=== PATIENT | female | born 1935 | race Caucasian/White ===

== ENCOUNTER 2017-05-01 17:10 | Outpatient (CLI) | payer MEDICARE, OTHER ==
[2017-05-01 20:11] LABS: BASOPHILS # (AUTO) 0.1 10^3/uL (0.0-0.1); BASOPHILS % (AUTO) 0.8 %; EOSINOPHILS # (AUTO) 0.4 10^3/uL (0.0-0.7); EOSINOPHILS % (AUTO) 5.7 %; HGB - HEMOGLOBIN 13.2 g/dL (12.0-16.0); LYMPHOCYTES # (AUTO) 1.2 10^3/uL (1.5-3.5); LYMPHOCYTES % (AUTO) 18.1 %; MEAN CORPUSCULAR HEMOGLOBIN 29.8 pg (27.0-31.0); MEAN CORPUSCULAR HGB CONC 31.6 g/dL (32.0-36.0); MEAN CORPUSCULAR VOLUME 94.3 fL (81.0-99.0); MEAN PLATELET VOLUME 9.1 fL (7.9-10.8); MONOCYTES # (AUTO) 0.9 10^3/uL (0.0-1.0); MONOCYTES % (AUTO) 13.4 %; NEUTROPHILS # (AUTO) 4.1 10^3/uL (1.5-6.6); PLT - PLATELET COUNT 253 10^3/uL (130-450); RED BLOOD COUNT 4.43 10^6/uL (4.20-5.40); RED CELL DISTRIBUTION WIDTH 16.4 % (12.0-15.0); WHITE BLOOD COUNT 6.6 x10^3/uL (4.8-10.8)
[2017-05-01 20:19] LABS: CALCIUM 9.3 mg/dL (8.5-10.3); CREATININE 0.8 mg/dL (0.4-1.0)
== END 2017-05-01 17:11 | disposition home or self-care (01) ==
LOC: LAB.R 17:10
DX: E78.5 Hyperlipidemia, unspecified (principal); D64.9 Anemia, unspecified
CPT/HCPCS: 80048; 85025

== ENCOUNTER 2017-06-08 11:05 | Outpatient (CLI) | payer MEDICARE, OTHER | END 2017-06-08 11:06 | disposition home or self-care (01) | LOC: LAB.F 11:05 | PROVIDERS: ATTEND Family Medicine | DX: I48.91 Unspecified atrial fibrillation (principal) | CPT/HCPCS: 85610 ==

== ENCOUNTER 2017-09-02 03:54 | Outpatient (CLI) | payer MEDICARE, OTHER ==
[2017-09-02] MEDS ORDERED: DILTIAZEM 50 MG/10 ML VIAL IVP ONE (06:14)
[2017-09-02] MEDS ORDERED: ACETAMINOPHEN 325 MG TABLET PO PRN (06:21)
[2017-09-02] MEDS ORDERED: SODIUM CHLORIDE FLUSH 0.9% 10 ML SYRINGE IVP PRN (06:21)
[2017-09-02] MEDS ORDERED: PANTOPRAZOLE 40 MG TABLET PO SCH (09:00)
[2017-09-02] MEDS ORDERED: SODIUM CHLORIDE FLUSH 0.9% 10 ML SYRINGE IVP SCH (09:00)
[2017-09-02] MEDS ORDERED: POLYETHYLENE GLYCOL 3350 17 GM PACKET PO SCH (09:00)
== END 2017-09-02 03:55 | disposition critical access hospital (66) ==
LOC: EMS 03:54
PROVIDERS: ATTEND Surgery
DX: R06.02 Shortness of breath (principal); R05 Cough
CPT/HCPCS: A0425; A0427

== ENCOUNTER 2017-09-02 04:19 | Inpatient (IN) | payer MEDICARE, OTHER ==
[2017-09-02] MEDS ORDERED: SODIUM CHLORIDE 0.9% 1,000 ML IV ONE (04:31)
--- NOTE | 2017-09-02 04:56 | XRAY Report ---
EXAM: CHEST RADIOGRAPHY EXAM DATE: 09/02/2017 04:50 AM. CLINICAL HISTORY: Cough, hypoxia. COMPARISON: 03/08/2006. TECHNIQUE: 1 view. FINDINGS: Lungs/Pleura: Pulmonary vascular congestion. No alveolar consolidation. No definite pleural effusion. No pneumothorax. Mediastinum: Rotated. Mild cardiomegaly. Other: Osteopenia. IMPRESSION: 1. Rotated exam with mild cardiomegaly and pulmonary vascular congestion. [facility] Referring Provider Line: [phone] SITE ID: [id number]
[2017-09-02 05:09] LABS: BASOPHILS % (AUTO) 0.2 %; EOSINOPHILS # (AUTO) 0.1 10^3/uL (0.0-0.7); EOSINOPHILS % (AUTO) 1.2 %; HGB - HEMOGLOBIN 13.8 g/dL (12.0-16.0); LYMPHOCYTES # (AUTO) 1.1 10^3/uL (1.5-3.5); LYMPHOCYTES % (AUTO) 17.3 %; MEAN CORPUSCULAR HGB CONC 31.6 g/dL (32.0-36.0); MEAN CORPUSCULAR VOLUME 94.8 fL (81.0-99.0); MEAN PLATELET VOLUME 8.4 fL (7.9-10.8); MONOCYTES # (AUTO) 0.7 10^3/uL (0.0-1.0); MONOCYTES % (AUTO) 10.6 %; NEUTROPHILS # (AUTO) 4.5 10^3/uL (1.5-6.6); NEUTROPHILS % (AUTO) 70.7 %; PLT - PLATELET COUNT 158 10^3/uL (130-450); RED CELL DISTRIBUTION WIDTH 15.4 % (12.0-15.0); WHITE BLOOD COUNT 6.3 x10^3/uL (4.8-10.8)
[2017-09-02] MEDS ORDERED: FUROSEMIDE 40 MG/4 ML VIAL IVP STA (05:13)
[2017-09-02 05:16] LABS: INR 1.6 (0.8-1.2)
[2017-09-02 05:21] LABS: ALBUMIN 3.7 g/dL (3.2-5.5); BILIRUBIN,TOTAL 1.1 mg/dL (0.2-1.0); CALCIUM 8.7 mg/dL (8.5-10.3); CREATININE 0.5 mg/dL (0.4-1.0); TOTAL PROTEIN 7.3 g/dL (6.7-8.2)
--- NOTE | 2017-09-02 05:23 | ED Physician Documentation ---
PD HPI DYSPNEA - Stated complaint Stated Complaint: SOA - Chief complaint Chief Complaint: Resp - History obtained from History obtained from: EMS - History of Present Illness Timing - onset: Today Timing - onset during: Rest Timing - details: Gradual onset, Still present Improved by: O2 Associated symptoms: Cough Similar symptoms before: Work up / diagnostics, Treatment Recently seen: Not recently seen - Additional information Additional information: Patient is an 82 year old female, fpc patient was a history of afib and dementia who is presenting to the emergency department for worsening cough and shortness of breath. Patient was having trouble breathing so staff called ems. When ems arrived patient was saturating around 87. they treated the patient with a duoneb and 6L of oxygenation which improved the 02 status. Review of Systems Unable to obtain: Dementia PD PAST MEDICAL HISTORY - Past Medical History Cardiovascular: Hypertension, High cholesterol, Coronary artery disease, Atrial fibrillation Neuro: CVA : Incontinence HEENT: Chronic hearing loss Psych: None Musculoskeletal: Hemiplegia Derm: None - Past Surgical History Past Surgical History: No Cardiovascular: Coronary stent - Present Medications Home Medications: Ambulatory Orders Medication Instructions Recorded Confirmed Alendronate [Fosamax] 70 mg PO Q7D 06/23/14 02/20/17 Aspirin [Aspir 81] 81 mg PO DAILY 06/23/14 02/20/17 Lisinopril 40 mg PO BID 06/23/14 02/20/17 Potassium Chloride 10 meq PO BIDWM 06/23/14 02/20/17 Simvastatin 40 mg PO QPM 06/23/14 02/20/17 Warfarin [Coumadin] 5 mg PO MOWEFR@209906/23/14 02/20/17 amLODIPine [Norvasc] 5 mg PO QPM 06/23/14 02/20/17 Calcium Carbonate/Vitamin D3 1 tab PO DAILY 02/20/17 02/20/17 [Calcium 600-Vit D3 400 Tablet] Multivitamin [Theragran] 1 tab PO DAILY 02/20/17 02/20/17 Warfarin [Coumadin] 2.5 mg PO SUTUTHSA@209902/20/17 02/20/17 Aspirin 325 mg PO DAILY #7 tablet 02/24/17 HYDROcod/ACETAM 5/325 [[place] 5/325] 1 each PO Q6H PRN #12 tablet 02/24/17 diltiaZEM [Cardizem] 30 mg PO Q6H #30 tablet 02/24/17 - Allergies Allergies/Adverse Reactions: Allergies Allergy/AdvReac Type Severity Reaction Status Date / Time No Known Drug Allergies Allergy Verified 02/20/17 10:58 - Social History Does the pt smoke?: No Smoking Status: Never smoker Does the pt drink ETOH?: No Does the pt have substance abuse?: No - Immunizations Immunizations are current?: Yes - POLST Patient has POLST: Yes POLST Status: Full Code PD ED PE NORMAL - Vitals Vital signs reviewed: Yes - Neck Neck: No JVD - Abdomen Abdomen: Soft - Derm Derm: Normal color - Extremities Extremities: No edema - Neuro Eye Opening: Spontaneous Motor: Obeys Commands Verbal: Confused GCS Score: 14 PD ED PE EXPANDED - HEENT HEENT: Dry mucous membranes - Cardiac Cardiac: Irregularly irregular - Respiratory Respiratory: Labored, Rhonchi, Rales, Right upper lobe, Right middle lobe, Right lower lobe, Left upper lobe, Left lower lobe Results - Vitals Vitals: Vital Signs - 24 hr 09/02/17 09/02/17 04:27 05:17 Temperature 37.2 C Heart Rate 113 H 116 H Respiratory 22 28 H Rate Blood Pressure 138/102 H 142/98 H O2 Saturation 87 L 96 Oxygen O2 Source [] Room air O2 Source Nasal cannula Oxygen Flow Rate 4 - EKG (time done) 0433 Rate: Rate (enter#) (105) Rhythm: Atrial fibrillation [place]: Normal Intervals: Normal [place] Compare to prior EKG: Old EKG unavailable - Labs Labs: Laboratory Tests 09/02/17 09/02/17 09/02/17 05:00 05:00 05:00 WBC 6.3 RBC 4.60 Hgb 13.8 Hct 43.6 MCV 94.8 MCH 30.0 MCHC 31.6 L RDW 15.4 H Plt Count 158 MPV 8.4 Neut # 4.5 Lymph # 1.1 L Mcpherson # 0.7 Eos # 0.1 Baso # 0.0 Absolute Nucleated RBC 0.00 Nucleated RBC % 0.1 PT 18.0 H INR 1.6 H Sodium 135 Potassium 4.0 Chloride 102 Carbon Dioxide 23 Anion Gap 10.0 BUN 16 Creatinine 0.5 Estimated GFR (MDRD) 119 Glucose 123 H Lactic Acid Calcium 8.7 Total Bilirubin 1.1 H AST 26 ALT 21 Alkaline Phosphatase 82 Troponin I B-Natriuretic Peptide Total Protein 7.3 Albumin 3.7 Globulin 3.6 Albumin/Globulin Ratio 1.0 Lipase 20 L Urine Color Urine Clarity Urine pH Ur Specific [place] Urine Protein Urine Glucose (UA) Urine Ketones Urine Occult Blood Urine Nitrite Urine Bilirubin Urine Urobilinogen Ur Leukocyte Esterase Ur Microscopic Review Urine Culture Comments 09/02/17 09/02/17 09/02/17 05:00 05:00 05:00 WBC RBC Hgb Hct MCV MCH MCHC RDW Plt Count MPV Neut # Lymph # [place] # Eos # Baso # Absolute Nucleated RBC Nucleated RBC % PT INR Sodium Potassium Chloride Carbon Dioxide Anion Gap BUN Creatinine Estimated GFR (MDRD) Glucose Lactic Acid 1.3 Calcium Total Bilirubin AST ALT Alkaline Phosphatase Troponin I < 0.04 B-Natriuretic Peptide 515 H Total Protein Albumin Globulin Albumin/Globulin Ratio Lipase Urine Color Urine Clarity Urine pH Ur Specific [place] Urine Protein Urine Glucose (UA) Urine Ketones Urine Occult Blood Urine Nitrite Urine Bilirubin Urine Urobilinogen Ur Leukocyte Esterase Ur Microscopic Review Urine Culture Comments 09/02/17 05:40 WBC RBC Hgb Hct MCV MCH MCHC RDW Plt Count MPV Neut # Lymph # [place] # Eos # Baso # Absolute Nucleated RBC Nucleated RBC % PT INR Sodium Potassium Chloride Carbon Dioxide Anion Gap BUN Creatinine Estimated GFR (MDRD) Glucose Lactic Acid Calcium Total Bilirubin AST ALT Alkaline Phosphatase Troponin I B-Natriuretic Peptide Total Protein Albumin Globulin Albumin/Globulin Ratio Lipase Urine Color YELLOW Urine Clarity CLEAR Urine pH 5.5 Ur Specific [place] 1.025 Urine Protein TRACE Urine Glucose (UA) NEGATIVE Urine Ketones 40 H Urine Occult Blood TRACE-INTA Urine Nitrite POSITIVE H Urine Bilirubin NEGATIVE Urine Urobilinogen 0.2 (NORMAL) Ur Leukocyte Esterase NEGATIVE Ur Microscopic Review INDICATED Urine Culture Comments Not Reportable - Rads (name of study) chest x-ray Radiology: Final report received (rotated, with pulmonary vascular congestion) PD MEDICAL DECISION MAKING - ED course Complexity details: reviewed old records, reviewed results, re-evaluated patient , considered differential, d/w audit consultant ED course: Patient was seen and examined at bedside. IV access was gained and labs were drawn. ekg was performed and showed a fib. Patient had course breath sounds, was hypoxic and felt warm to touch. patient was started on a fluid bolus, and imaging was ordered. When patient returned from imaging she was found to have pulmonary edema but no infiltrated. Fluids were held and lasix was given. Case was discussed with the hospitalist and patient was admitted for further evaluation and care. Departure - Departure Disposition: 66 [facility] DC/Xfer Clinical Impression: Congestive heart failure Condition: Stable
[2017-09-02 05:49] LABS: BILIRUBIN,URINE NEGATIVE (NEGATIVE); GLUCOSE, URINE (UA) NEGATIVE (NEGATIVE); KETONES,URINE (UA) 40 mg/dL (NEGATIVE); LEUKOCYTE ESTERASE, URINE NEGATIVE (NEGATIVE); NITRITE,URINE POSITIVE (NEGATIVE); OCCULT BLOOD,URINE TRACE-INTA (NEGATIVE); PH,URINE 5.5 PH (5.0-7.5); PROTEIN,URINE TRACE mg/dL (NEGATIVE); UROBILINOGEN,URINE 0.2 (NORMAL) E.U./dL (NORMAL)
[2017-09-02 05:52] LABS: CLARITY,URINE CLEAR (CLEAR)
[2017-09-02 06:03] LABS: BACTERIA,URINE Many /HPF (None Seen); RBC,URINE 0-5 /HPF (0-5); SQUAMOUS EPITHELIAL CELL,UR RARE Squamous (<= Few)
[2017-09-02] MEDS ORDERED: diltiaZEM INJ 5 MG/ML VIAL IVP STA (06:44)
[2017-09-02] MEDS ORDERED: cefTRIAXone 1 GM VIAL IVP STA (06:45)
[2017-09-02] MEDS ORDERED: SODIUM CHLORIDE FLUSH 0.9% 10 ML SYRINGE IVP PRN (07:07)
[2017-09-02] MEDS ORDERED: ONDANSETRON 4 MG/2 ML VIAL IVP PRN (07:07)
[2017-09-02] MEDS ORDERED: diltiaZEM INJ 125 MG in DEXTROSE 5% 100 ML IV SCH ×2 (09:00→11:00)
[2017-09-02] MEDS ORDERED: WARFARIN 5 MG TABLET PO SCH (09:00)
[2017-09-02] MEDS: cefTRIAXone 1 GM in SODIUM CHLORIDE 0.9% MINIBAG 100 ML IV SCH (09:23)
[2017-09-02] MEDS: SODIUM CHLORIDE FLUSH 0.9% 10 ML SYRINGE IVP SCH ×2 (09:30→16:59)
[2017-09-02] MEDS: POLYETHYLENE GLYCOL 3350 17 GM PACKET PO SCH (11:13)
[2017-09-02] MEDS: PANTOPRAZOLE 40 MG TABLET PO SCH (11:13)
--- NOTE | 2017-09-02 16:02 | HISTORY & PHYSICAL EXAMINATION ---
DATE OF SERVICE: 09/02/2017 Physician: Rosi Arteaga MD CHIEF COMPLAINT: Shortness of breath and cough. HISTORY OF PRESENT ILLNESS: Patient is an 82-year-old white female with past medical history of atrial fibrillation, on Coumadin anticoagulation, and with history of cerebrovascular accident with residual aphasia and right-sided weakness, who was brought in from [facility] with 2 days' history of shortness of breath and cough. When I admitted patient, she had a wet cough. Other than shortness of breath and cough , she did not have a complaint. In particular, she denied abdominal pain, chest pain, nausea, vomiting, diarrhea. From the facility report, patient was short of breath and had low oxygen saturation in the 80s on room air. She does not have history of oxygen dependence. Upon presentation to the ER, patient showed septic physiology, had elevated temperature 37.2, and her heart rate was between 110 and 120. EKG showed atrial fibrillation with rapid ventricular rate. At the time I examined patient, her heart rate was between 120 and 130. INR was 1.6. White blood cell count was normal. Chest x-ray showed pulmonary vascular congestion. No discrete infiltrate. BNP was 515. Troponin was negative. Urinalysis showed nitrite and some white blood cells. CODE STATUS: Regarding code status, I was told that patient's code status is DO NOT RESUSCITATE. I confirmed that with her. She told me she did not want aggressive intervention, but she wanted reasonable medical treatment, shy of intubation and cardiopulmonary resuscitation. Her POLST form from the facility is not yet available. PAST MEDICAL HISTORY 1. Hypertension. 2. Dyslipidemia. 3. Atrial fibrillation/Coumadin anticoagulation. 4. Osteoarthritis/osteoporosis. 5. 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 Back in 2007, the patient did receive TPA and was treated for stroke at [facility]. 6. History of hip fracture, status post ORIF in January 2017. 7. Coronary artery disease, status post myocardial infarction, history of stent placement in 2005. 8. Echocardiogram in 2014 showed normal ejection fraction. 9. Melanoma back in 2008. PRIMARY CARE PHYSICIAN: Dr. Ru Carr. FAMILY HISTORY: Positive for cerebrovascular accident. SOCIAL HISTORY: The patient resides at [facility]. She has expressive aphasia, but she can communicate and let her needs be known. She requires assistance with transfers. OUTPATIENT MEDICATIONS: Medication list is not yet available or reconciled. Per prior records, the patient was on 1. Cardizem. 2. Norvasc. 3. Coumadin. 4. Simvastatin. 5. Potassium supplements. 6. Multivitamin. 7. Lisinopril. 8. [place]. 9. Calcium. 10. Vitamin D. 11. Aspirin. 12. Fosamax. REVIEW OF SYSTEMS: Please see pertinent positive listed above at history of present illness. On complete 12-point review, the patient did not report additional complaint. PHYSICAL EXAMINATION VITAL SIGNS: Temperature is 37.2, heart rate between 120 and 130, blood pressure 130/80, respiratory rate 28, oxygen saturation 87% on room air and 96% on nasal cannula. GENERAL: The patient is a well-developed, chronically ill-appearing female who had wet cough and appeared with increased work of breathing RESPIRATORY: No wheezes, no crackling. Reasonably good air entry throughout. CARDIOVASCULAR: S1, S2, irregularly irregular, fast rate. I could not hear a murmur. ABDOMEN: Soft, benign, nontender. Bowel tones present. LYMPH: No lymphedema. NEUROLOGIC: Right-sided hemiparesis and dysarthria and aphasia. No new focal deficits. PSYCHIATRIC: Cooperative. No agitation. SKIN: Mild pallor. No jaundice. MUSCULOSKELETAL: Right upper extremity contracture. ASSESSMENT AND PLAN ACTIVE ISSUES/DIAGNOSES 1. Sepsis, rules in for the diagnosis per vital sign criteria, including oxygen saturation of 87%, heart rate around 120, elevated temperature above 37 Celsius. Source could be respiratory versus urine. Urinalysis was positive. 2. Hypoxia/respiratory failure requiring supplemental oxygen. 3. Infectious issues, urinary tract infection plus bronchitis. 4. Congestive heart failure, likely diastolic dysfunction from sepsis and fast atrial fibrillation. 5. History of stroke with residual deficits. 6. Coumadin anticoagulation with subtherapeutic INR. 7. Atrial fibrillation with rapid ventricular rate in the setting of sepsis. PLAN AND ORDERS 1. The patient is getting admitted as inpatient. In the ER, the patient initially received some fluids. As the initial impression was possible pneumonia, subsequently she received Lasix. She had not yet received rate control. I ordered 10 mg IV Cardizem and we will see her response. In the meantime as she might require Cardizem drip, I am admitting her to the intensive care unit and further plan regarding rate control will depend on her response to the initial Cardizem bolus. Lasix was already given. We will monitor the clinical course. If needed, more Lasix will be given. 2. Ceftriaxone will be started for bronchitis and urinary tract infection pending cultures. 3. Supportive care for bronchitis, will use small volume nebulizers. 4. Assess swallow function. Speech therapy evaluation. With history of stroke , patient would have aspiration risk. 5. Continue Coumadin per INR. I expect INR to rise as patient is on antibiotics. 6. Will check an echocardiogram and repeat troponin. 7. I requested POLST form to be faxed from the facility; however, the patient was alert and oriented and confirmed that she is DO NOT RESUSCITATE CODE STATUS. 8. Physical therapy, occupational therapy evaluation and social work consult. After treatment when hemodynamically stable, patient can go back to [facility]. ATTESTATION: I certify that the reasonable expectation for this patient is that she remains hospitalized for at least 48 hrs, however gets discharged or transferred to another facility within 96 hrs. Time spent in the care of this patient was 60 minutes. TD: 09/02/2017 16:01 SHERRY
[2017-09-02] MEDS: ASPIRIN EC 81 MG TABLET PO SCH (20:46)
[2017-09-02] MEDS: diltiaZEM 30 MG TABLET PO SCH (20:46)
[2017-09-02] MEDS: WARFARIN 5 MG TABLET PO SCH (20:50)
[2017-09-03] MEDS: SODIUM CHLORIDE FLUSH 0.9% 10 ML SYRINGE IVP SCH ×3 (01:07→18:41)
[2017-09-03] MEDS: diltiaZEM 30 MG TABLET PO SCH ×4 (03:04→20:12)
[2017-09-03 06:48] LABS: BASOPHILS % (AUTO) 0.4 %; EOSINOPHILS # (AUTO) 0.2 10^3/uL (0.0-0.7); HGB - HEMOGLOBIN 13.5 g/dL (12.0-16.0); LYMPHOCYTES # (AUTO) 1.1 10^3/uL (1.5-3.5); LYMPHOCYTES % (AUTO) 23.4 %; MEAN CORPUSCULAR VOLUME 93.8 fL (81.0-99.0); MEAN PLATELET VOLUME 8.2 fL (7.9-10.8); MONOCYTES # (AUTO) 0.7 10^3/uL (0.0-1.0); NEUTROPHILS # (AUTO) 2.6 10^3/uL (1.5-6.6); NEUTROPHILS % (AUTO) 55.2 %; PLT - PLATELET COUNT 179 10^3/uL (130-450); RED BLOOD COUNT 4.49 10^6/uL (4.20-5.40); RED CELL DISTRIBUTION WIDTH 14.9 % (12.0-15.0); WHITE BLOOD COUNT 4.7 x10^3/uL (4.8-10.8)
[2017-09-03 06:56] LABS: CALCIUM 8.3 mg/dL (8.5-10.3); CREATININE 0.5 mg/dL (0.4-1.0)
[2017-09-03 07:47] LABS: INR 2.1 (0.8-1.2); PT - PROTHROMBIN TIME 23.3 secs (9.9-12.6)
[2017-09-03] MEDS: POLYETHYLENE GLYCOL 3350 17 GM PACKET PO SCH (08:52)
[2017-09-03] MEDS: cefTRIAXone 1 GM in SODIUM CHLORIDE 0.9% MINIBAG 100 ML IV SCH (08:53)
[2017-09-03] MEDS: PANTOPRAZOLE 40 MG TABLET PO SCH (08:55)
[2017-09-03] MEDS: FLUoxetine 10 MG CAPSULE PO SCH (08:56)
[2017-09-03] MEDS: ATORVASTATIN 10 MG TABLET PO SCH (08:57)
[2017-09-03] MEDS: CHOLECALCIFEROL 400 UNIT TABLET PO SCH (08:57)
[2017-09-03] MEDS ORDERED: CALCIUM CARBONATE CHEW 500 MG TABLET PO SCH (09:00)
[2017-09-03] MEDS: CALCIUM CARBONATE CHEW 500 MG TABLET PO SCH (09:58)
[2017-09-03] MEDS ORDERED: POTASSIUM CHLORIDE 20 MEQ TABLET PO ONE (10:23)
[2017-09-03] MEDS: D5NS W/20 MEQ KCL 1,000 ML IV SCH (12:09)
[2017-09-03] MEDS ORDERED: SODIUM CHLORIDE FLUSH 0.9% 10 ML SYRINGE ONE ×2 (12:23→20:49)
--- NOTE | 2017-09-03 13:15 | PROVIDER PROGRESS NOTE ---
Assessment/Plan - Problem List (1) Sepsis Assessment/Plan: Improving BP. Resolving sepsis. Monitor CBC and treat underlying infection. (2) UTI (urinary tract infection) Assessment/Plan: Continue iv antibiotics. (3) Hypokalemia Assessment/Plan: Likely due to Lasix diuresis whn she was admitted. Replace and monitor labs. (4) CVA - cerebrovascular accident due to cerebral artery occlusion Assessment/Plan: Stable neuro status. (5) Atrial fibrillation Qualifiers: Atrial fibrillation type: chronic Qualified Code(s): I48.2 - Chronic atrial fibrillation Assessment/Plan: HR is slightly more controlled. Will plan more gentle rehydration, which should help control HR. Continue telemetry monitoring. - Current Meds Current Meds: Current Medications Generic Name Dose Route Start Last Admin Trade Name Foreignq PRN Reason Stop Dose Admin Aspirin 81 mg 09/02/17 21:00 09/02/17 20:46 Ecotrin PO 81 mg QPM FLO Administration Atorvastatin Calcium 20 mg 09/03/17 09:00 09/03/17 08:57 Lipitor PO 20 mg DAILY FLO Administration Calcium Carbonate/Glycine 500 mg 09/03/17 09:06 09/03/17 09:58 Tums PO 500 mg DAILY FLO Administration Cholecalciferol 400 unit 09/03/17 09:00 09/03/17 08:57 Vitamin D3 PO 400 unit DAILY FLO Administration Diltiazem HCl 30 mg 09/02/17 21:00 09/03/17 08:57 Cardizem PO 30 mg Q6H FLO Administration Fluoxetine HCl 20 mg 09/03/17 09:00 09/03/17 08:56 Prozac PO 20 mg DAILY FLO Administration Ceftriaxone Sodium 1 gm/ 100 mls @ 200 mls/hr 09/02/17 09:00 09/03/17 09:33 Sodium Chloride IV Infused DAILY FLO Infusion Potassium Chloride/Dextrose/Sod Cl 1,000 mls @ 125 mls/hr 09/03/17 11:00 12:09 IV 125 mls/hr .Q8H FLO Administration Pantoprazole Sodium 40 mg 09/02/17 09:00 09/03/17 08:55 Protonix PO 40 mg DAILY FLO Administration Polyethylene Glycol 17 gm 09/02/17 09:00 09/03/17 08:52 Miralax PO 17 gm DAILY FLO Administration Sodium Chloride 10 ml 09/02/17 09:00 09/03/17 08:58 Normal Saline Flush 0.9% IVP 20 ml 0100,0900,1700 [facility] Administration Warfarin Sodium 2.5 mg 09/02/17 21:00 09/02/17 20:50 Coumadin PO 2.5 mg SUTUTHSA@2100 [facility] Administration - Lab Result Fish Bone Diagrams: 09/03/17 06:24 09/03/17 06:24 - Additional Planning My Orders: My Active Orders 09/02/17 21:00 Aspirin EC [Ecotrin] 81 mg PO QPM Warfarin [Coumadin] 2.5 mg PO SUTUTHSA@2100 09/03/17 09:00 Atorvastatin [Lipitor] 20 mg PO DAILY FLUoxetine [PROzac] 20 mg PO DAILY 09/03/17 11:00 D5ns W/20 Meq KCl 1,000 ml IV 125 mls/hr 09/04/17 21:00 Warfarin [Coumadin] 5 mg PO MOWEFR@2100 Subjective - Subjective Patient Reports: Feeling Better, Resting Comfortably Nursing Reports: No Complaints Objective Vital Signs: Vital Signs - 24 hr 09/02/17 09/02/17 09/02/17 14:00 15:00 16:00 Temperature 36.8 C Heart Rate [ 95 98 86 Monitoring electrodes] Respiratory 14 26 H 26 H Rate Blood Pressure Blood Pressure 116/71 125/77 92/55 L [Left Brachial artery] O2 Saturation 95 94 92 09/02/17 09/02/17 09/02/17 17:00 18:00 18:15 Temperature Heart Rate [ 96 103 H 110 H Monitoring electrodes] Respiratory 17 22 26 H Rate Blood Pressure Blood Pressure 104/75 98/65 95/59 L [Left Brachial artery] O2 Saturation 93 96 96 09/02/17 09/02/17 09/02/17 18:30 19:00 19:30 Temperature 36.7 C Heart Rate [ 110 H 96 Monitoring electrodes] Respiratory 26 H 29 H Rate Blood Pressure Blood Pressure 91/63 105/71 [Left Brachial artery] O2 Saturation 95 96 09/02/17 09/02/17 09/02/17 20:00 20:46 21:00 Temperature Heart Rate [ 96 99 Monitoring electrodes] Respiratory 23 21 Rate Blood Pressure 119/77 Blood Pressure 100/66 124/77 [Left Brachial artery] O2 Saturation 96 97 09/02/17 09/02/1709/03/18 22:00 23:00 00:00 Temperature 37.1 C 36.9 C Heart Rate [ 99 95 95 Monitoring electrodes] Respiratory 22 20 20 Rate Blood Pressure Blood Pressure 114/62 108/69 126/78 [Left Brachial artery] O2 Saturation 94 94 96 09/03/17 09/03/17 09/03/17 01:00 02:00 03:00 Temperature Heart Rate [ 97 107 H 115 H Monitoring electrodes] Respiratory 23 21 30 H Rate Blood Pressure Blood Pressure 140/86 H 141/83 H 130/89 H [Left Brachial artery] O2 Saturation 95 95 100 09/03/17 09/03/17 09/03/17 03:04 04:00 05:00 Temperature Heart Rate [ 114 H 105 H Monitoring electrodes] Respiratory 21 19 Rate Blood Pressure 130/89 H Blood Pressure 97/69 135/92 H [Left Brachial artery] O2 Saturation 96 95 09/03/17 09/03/17 09/03/17 06:00 07:00 08:57 Temperature Heart Rate [ 96 96 Monitoring electrodes] Respiratory 20 21 Rate Blood Pressure 96/71 Blood Pressure 131/84 H 119/78 [Left Brachial artery] O2 Saturation 98 97 09/03/17 09/03/17 09:00 11:45 Temperature 36.8 C Heart Rate [ 112 H 100 Monitoring electrodes] Respiratory 18 20 Rate Blood Pressure Blood Pressure 99/65 92/58 L [Left Brachial artery] O2 Saturation 100 94 Oxygen O2 Source [With Activity] Room air O2 Source Room air I&O (Last 24 Hrs): Intake and Output Totals x24h 09/01/17 09/02/17 09/03/17 23:59 23:59 23:59 Intake Total 850.583 670 Output Total 2585 282 Balance -1734.417 388 General: Alert HEENT: Mucous membr. moist/pink Neck: Supple Neuro: Other (Apasia and R sided weakness) Cardiovascular: Regular rate, No murmurs Respiratory: No respiratory distress, Breath sounds nml Abdomen: Soft Extremities: No edema - Results Results: Laboratory Results WBC 4.7 x10^3/uL (4.8-10.8) L 09/03/17 06:24 RBC 4.49 10^6/uL (4.20-5.40) 09/03/17 06:24 Hgb 13.5 g/dL (12.0-16.0) 09/03/17 06:24 Hct 42.1 % (37.0-47.0) 09/03/17 06:24 MCV 93.8 fL (81.0-99.0) 09/03/17 06:24 MCH 30.0 pg (27.0-31.0) 09/03/17 06:24 MCHC 32.0 g/dL (32.0-36.0) 09/03/17 06:24 RDW 14.9 % (12.0-15.0) 09/03/17 06:24 Plt Count 179 10^3/uL (130-450) 09/03/17 06:24 MPV 8.2 fL (7.9-10.8) 09/03/17 06:24 Neut # 2.6 10^3/uL (1.5-6.6) 09/03/17 06:24 Lymph # 1.1 10^3/uL (1.5-3.5) L 09/03/17 06:24 [place] # 0.7 10^3/uL (0.0-1.0) 09/03/17 06:24 Eos # 0.2 10^3/uL (0.0-0.7) 09/03/17 06:24 Baso # 0.0 10^3/uL (0.0-0.1) 09/03/17 06:24 Absolute Nucleated RBC 0.01 x10^3/uL 09/03/17 06:24 Nucleated RBC % 0.1 /100WBC 09/03/17 06:24 PT 23.3 secs (9.9-12.6) H 09/03/17 06:24 INR 2.1 (0.8-1.2) H 09/03/17 06:24 Sodium 136 mmol/L (135-145) 09/03/17 06:24 Potassium 3.3 mmol/L (3.5-5.0) L 09/03/17 06:24 Chloride 99 mmol/L (101-111) L 09/03/17 06:24 Carbon Dioxide 30 mmol/L (21-32) 09/03/17 06:24 Anion Gap 7.0 (6-13) 09/03/17 06:24 BUN 11 mg/dL (6-20) 09/03/17 06:24 Creatinine 0.5 mg/dL (0.4-1.0) 09/03/17 06:24 Estimated GFR (MDRD) 119 (>89) 09/03/17 06:24 Glucose 104 mg/dL (70-100) H 09/03/17 06:24 Lactic Acid 1.3 mmol/L (0.5-2.2) 09/02/17 05:00 Calcium 8.3 mg/dL (8.5-10.3) L 09/03/17 06:24 Total Bilirubin 1.1 mg/dL (0.2-1.0) H 09/02/17 05:00 AST 26 IU/L (10-42) 09/02/17 05:00 ALT 21 IU/L (10-60) 09/02/17 05:00 Alkaline Phosphatase 82 IU/L (42-121) 09/02/17 05:00 Troponin I < 0.04 ng/mL (<0.49) 09/02/17 09:00 B-Natriuretic Peptide 515 pg/mL (5-100) H 09/02/17 05:00 Total Protein 7.3 g/dL (6.7-8.2) 09/02/17 05:00 Albumin 3.7 g/dL (3.2-5.5) 09/02/17 05:00 Globulin 3.6 g/dL (2.1-4.2) 09/02/17 05:00 Albumin/Globulin Ratio 1.0 (1.0-2.2) 09/02/17 05:00 Lipase 20 U/L (22-51) L 09/02/17 05:00 Urine Color YELLOW 09/02/17 05:40 Urine Clarity CLEAR (CLEAR) 09/02/17 05:40 Urine pH 5.5 PH (5.0-7.5) 09/02/17 05:40 Ur Specific [place] 1.025 (1.002-1.030) 09/02/17 05:40 Urine Protein TRACE mg/dL (NEGATIVE) 09/02/17 05:40 Urine Glucose (UA) NEGATIVE mg/dL (NEGATIVE) 09/02/17 05:40 Urine Ketones 40 mg/dL (NEGATIVE) H 09/02/17 05:40 Urine Occult Blood TRACE-INTA (NEGATIVE) 09/02/17 05:40 Urine Nitrite POSITIVE (NEGATIVE) H 09/02/17 05:40 Urine Bilirubin NEGATIVE (NEGATIVE) 09/02/17 05:40 Urine Urobilinogen 0.2 (NORMAL) E.U./dL (NORMAL) 09/02/17 05:40 Ur Leukocyte Esterase NEGATIVE (NEGATIVE) 09/02/17 05:40 Urine RBC 0-5 /HPF (0-5) 09/02/17 05:40 Urine WBC 6-10 /HPF (0-5) H 09/02/17 05:40 Ur Squamous Epith Cells RARE Squamous (<= Few) 09/02/17 05:40 Urine Bacteria Many /HPF (None Seen) H 09/02/17 05:40 Ur Microscopic Review INDICATED 09/02/17 05:40 Urine Culture Comments INDICATED 09/02/17 05:40 - Procedures Procedures: Procedures REPOSITION R UP FEMUR WITH INTRAMED FIX, OPEN APPROACH (02/20/17)
[2017-09-03] MEDS ORDERED: SODIUM CHLORIDE 0.9% 500 ML IV ONE (16:12)
[2017-09-03] MEDS ORDERED: ZOLPIDEM 5 MG TABLET PO PRN (19:33)
[2017-09-03] MEDS: ASPIRIN EC 81 MG TABLET PO SCH (20:12)
[2017-09-03] MEDS: WARFARIN 5 MG TABLET PO SCH (20:14)
[2017-09-04] MEDS: D5NS W/20 MEQ KCL 1,000 ML IV SCH ×2 (01:39→01:40)
[2017-09-04] MEDS: SODIUM CHLORIDE FLUSH 0.9% 10 ML SYRINGE IVP SCH ×2 (01:39→07:41)
[2017-09-04] MEDS: diltiaZEM 30 MG TABLET PO SCH ×2 (04:07→08:29)
[2017-09-04] MEDS ORDERED: POTASSIUM CHLORIDE 20 MEQ TABLET PO ONE (08:00)
[2017-09-04] MEDS: FLUoxetine 10 MG CAPSULE PO SCH (08:29)
[2017-09-04] MEDS: ATORVASTATIN 10 MG TABLET PO SCH (08:29)
[2017-09-04] MEDS: CALCIUM CARBONATE CHEW 500 MG TABLET PO SCH (08:29)
[2017-09-04] MEDS: CHOLECALCIFEROL 400 UNIT TABLET PO SCH (08:29)
[2017-09-04] MEDS: cefTRIAXone 1 GM in SODIUM CHLORIDE 0.9% MINIBAG 100 ML IV SCH (08:30)
[2017-09-04] MEDS: PANTOPRAZOLE 40 MG TABLET PO SCH (08:31)
[2017-09-04] MEDS: POLYETHYLENE GLYCOL 3350 17 GM PACKET PO SCH (08:31)
[2017-09-04 09:38] LABS: EOSINOPHILS # (AUTO) 0.2 10^3/uL (0.0-0.7); MEAN CORPUSCULAR HEMOGLOBIN 30.9 pg (27.0-31.0); MEAN PLATELET VOLUME 8.1 fL (7.9-10.8)
[2017-09-04 10:29] LABS: BASOPHILS % (AUTO) 0.5 %; HGB - HEMOGLOBIN 13.3 g/dL (12.0-16.0); LYMPHOCYTES % (AUTO) 18.8 %; MEAN CORPUSCULAR HGB CONC 33.2 g/dL (32.0-36.0); MEAN CORPUSCULAR VOLUME 93.1 fL (81.0-99.0); MONOCYTES # (AUTO) 0.8 10^3/uL (0.0-1.0); NEUTROPHILS # (AUTO) 3.1 10^3/uL (1.5-6.6); NEUTROPHILS % (AUTO) 61.7 %; PLT - PLATELET COUNT 179 10^3/uL (130-450); RED CELL DISTRIBUTION WIDTH 14.6 % (12.0-15.0)
[2017-09-04 10:41] LABS: CALCIUM 8.2 mg/dL (8.5-10.3); CREATININE 0.5 mg/dL (0.4-1.0); MAGNESIUM 1.7 mg/dL (1.7-2.8)
[2017-09-04 10:42] LABS: INR 2.5 (0.8-1.2)
--- NOTE | 2017-09-04 12:10 | Discharge Plan ---
"Discharge Plan for SNF / ROSELINE - DC Plan and Transition Orders Disposition: 03 SNF DC/Xfer Condition: Stable SNF Transition Orders: Admit to: [facility] under the care of Dr Ru Carr Discharge Diagnosis: 1) UTI 2) History of stroke with weakness, aphasia and contractures 3) Atrial fib, on Coumadin 4) History of CAD and old OR 5) Osteoarthritis 6) Code Status: DNR Notify PCP of admission and forward orders to primary provider for signature. Weight on admission and weekly. Call PCP immediately if weight increases by 5 pounds or if patient develops dyspnea, chest pain/tightness or edema. House Bowel Program: Yes If no BM after 2 days, nurse may give M.O.M. 30ml PO PRN and /or ducolax Supp 1 CO and /or UNA 250mg P.O., and/or senna 1-2 tabs PO. On day 3 nurse may give repeat above order until residents constipation is resolved. Immunizations: Annual Influenza Vaccine: Yes. (between Dec 23 and July 22.) Unless allergy or already given Two-Step PPD: Yes per [facility] [id number] or appropriate documentation of approved exceptions Treatments & Other Orders: OT and PT to evaluate and manage contractures of R arm, R hand and R leg Oxygen Orders: None Lab Tests or X-Rays Orders: INR monthly, next on Mon09/06/17 please Orthopedic Orders: None. Medications: PLEASE REFER TO THE DISCHARGE MEDICATION LIST. Insulin Orders? No Allergies and Adverse Reactions: Allergies Allergy/AdvReac Type Severity Reaction Status Date / Time No Known Drug Allergies Allergy Verified 02/20/17 10:58 - Medications New Prescriptions: Amox/Clav 875/125 [Augmentin 875/125] 1 tab PO BIDWM #8 tablet Saccharomyces Boulardii [Florastor] 250 mg PO BID #8 capsule - Diet Type: Geriatric Texture: Puree Liquids: Thin May have monthly special meal: Yes - Therapies | Activity Therapy: Evaluation | Treat if indicated: PT (For contracture management), OT Rehabilitation Potential: Maintain present ADL Functional Activity: Activity as Tolerated Additional Instructions: Resume all previous medications. Take the antibiotic and Florastor for 4 days more."
[2017-09-04 13:15] VITALS: BP 122/72
[2017-09-04] MEDS ORDERED: AMOX/CLAV 875 MG/125 MG TABLET PO SCH (17:00)
[2017-09-04] MEDS ORDERED: WARFARIN 2.5 MG TABLET PO SCH (21:00)
--- NOTE | 2017-09-05 08:26 | DISCHARGE SUMMARY ---
Physician: Marce Bull MD DATE OF ADMISSION: 09/02/2017 DATE OF DISCHARGE: 09/04/2017 HISTORY OF PRESENT ILLNESS: This is an 82-year-old white female who lives in an assisted living facility. 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 The patient presented with history of a wet cough, shortness of breath for 2 days, and found to have 80% oxygen saturation on room air. She appeared to have sepsis with tachycardia, tachypnea. The source of her fever was felt to be a urinary tract infection and/or bronchitis. HOSPITAL COURSE AND DISCHARGE DIAGNOSES 1. Urinary tract infection. Blood cultures were negative, but urine cultures grew E coli. She was placed initially on empiric IV antibiotics and then changed to antibiotics based on sensitivities of the cultures. She had no dysuria during her admission here. She was discharged back to the assisted living facility with an additional 4 more days of p.o. antibiotics. 2. Sepsis. The patient required IV fluids, which helped improve her tachycardia. The underlying infection was treated as above. 3. History of stroke with unilateral weakness, aphasia and contractures. The patient is normally bedbound according to OT and PT evaluations. It was advised that she have either OT or PT contracture management upon return back to her living situation. 4. Atrial fibrillation on Coumadin. The patient's tachycardia resolved with management of the infection. The patient is on a therapeutic dose of Coumadin. This antibiotic tends to increase the INR; therefore, an INR check is advised on 09/06/2017, with management as previously arranged. 5. History of coronary artery disease and old NM. The patient's last Echo was in 2014 showing a preserved LV ejection fraction. She had no evidence of ischemic heart disease on this admission. 6. Osteoarthritis. Stable. 7. CODE STATUS: DNR. ALLERGIES: NONE. MEDICATIONS AT TIME OF DISCHARGE 1. Fosamax 70 mg weekly. 2. Amlodipine 5 mg every evening. 3. Baby aspirin daily. 4. Lipitor 20 mg daily. 5. Calcium carbonate daily. 6. Diltiazem 30 mg every 6 hours. 7. Fluoxetine 20 mg daily. 8. Lisinopril 40 mg b.i.d. 9. Theragran vitamin daily. 10. Potassium chloride 10 mEq b.i.d. 11. Warfarin 2.5 alternating with 5 mg daily. 12. Augmentin 875/125 mg b.i.d. for 4 days along with Florastor tablets b.i.d. for 4 days. CONDITION AT DISCHARGE: Stable. PHYSICAL EXAMINATION AT DISCHARGE VITAL SIGNS: Blood pressure 122/72, pulse of 95, afebrile. Room air saturation 94%. HEENT: Unremarkable, except for her aphasia. Her oral mucosa is moist. NECK: No JVD. No carotid bruits. CHEST: Clear. HEART: Sounds normal. No murmur. ABDOMEN: The abdomen is soft, nontender, positive bowel sounds. EXTREMITIES: No edema, but she has contractures of the right hand and of the right knee. NEUROLOGIC: Aphasic. Right-sided weakness and hand contractures, but the patient is able to support herself, sitting upright in bed and able to feed herself. CODE STATUS: DNR. LABORATORY AND IMAGING: Reviewed and summarized above. TIME REQUIRED TO COMPLETE THIS ENTIRE DISCHARGE: 60 minutes. TD: 09/04/2017 17:14 SHERRY
== END 2017-09-04 13:57 | DRG 871 ==
LOC: EDUNIT# → ED 04:19 → SUPCPDRO 04:19 → ICU 07:07 → MS2 09-03 14:25
PROVIDERS: ADMIT Internal Medicine; ATTEND Internal Medicine
DX: A41.9 Sepsis, unspecified organism (principal); I50.9 Heart failure, unspecified; E78.00 Pure hypercholesterolemia, unspecified; I50.31 Acute diastolic (congestive) heart failure; I48.91 Unspecified atrial fibrillation; I69.359 Hemiplegia and hemiparesis following cerebral infarction affecting unspecified side; H91.90 Unspecified hearing loss, unspecified ear; R32 Unspecified urinary incontinence; N39.0 Urinary tract infection, site not specified; I69.351 Hemiplegia and hemiparesis following cerebral infarction affecting right dominant side; B96.20 Unspecified Escherichia coli [E. coli] as the cause of diseases classified elsewhere; M19.90 Unspecified osteoarthritis, unspecified site; I25.2 Old myocardial infarction; Z85.820 Personal history of malignant melanoma of skin; Z74.01 Bed confinement status; I69.320 Aphasia following cerebral infarction; I25.10 Atherosclerotic heart disease of native coronary artery without angina pectoris; Z79.01 Long term (current) use of anticoagulants; Z66 Do not resuscitate; E78.5 Hyperlipidemia, unspecified; Z79.82 Long term (current) use of aspirin; R09.02 Hypoxemia; J40 Bronchitis, not specified as acute or chronic; I11.0 Hypertensive heart disease with heart failure; E87.6 Hypokalemia; I48.2 Chronic atrial fibrillation; Z95.5 Presence of coronary angioplasty implant and graft
CPT/HCPCS: 36415; 51702; 71045; 80048; 80053; 81001; 81003; 83605; 83690; 83735; 83880; 84484; 85025; 85610; 87040; 87086; 87150; 93005; 93306; 96361; 96374; 96375; 99284

== ENCOUNTER 2017-09-04 13:59 | Outpatient (CLI) | payer MEDICARE, OTHER | END 2017-09-04 14:00 | disposition home or self-care (01) | LOC: EMS 13:59 | PROVIDERS: ATTEND Surgery | DX: N39.0 Urinary tract infection, site not specified (principal); Z74.01 Bed confinement status | CPT/HCPCS: A0425; A0428 ==

== ENCOUNTER 2017-09-07 14:33 | Outpatient (CLI) | payer MEDICARE, OTHER | END 2017-09-07 14:34 | disposition home or self-care (01) | LOC: LAB.F 14:33 | PROVIDERS: ATTEND Family Medicine | DX: I48.91 Unspecified atrial fibrillation (principal) | CPT/HCPCS: 85610 ==

== ENCOUNTER 2017-10-06 15:00 | Outpatient (CLI) | payer MEDICARE, OTHER | END 2017-10-06 15:01 | disposition home or self-care (01) | LOC: LAB.F 15:00 | PROVIDERS: ATTEND Family Medicine | DX: I48.91 Unspecified atrial fibrillation (principal) | CPT/HCPCS: 85610 ==

== ENCOUNTER 2017-10-12 08:00 | Outpatient (CLI) | payer MEDICARE, OTHER | END 2017-10-12 08:01 | LOC: LAB.F 08:00 | PROVIDERS: ATTEND Family Medicine | DX: I48.91 Unspecified atrial fibrillation (principal) | CPT/HCPCS: 85610 ==

== ENCOUNTER 2017-10-19 15:42 | Outpatient (CLI) | payer MEDICARE, OTHER | END 2017-10-19 15:43 | disposition home or self-care (01) | LOC: LAB.F 15:42 | PROVIDERS: ATTEND Family Medicine | DX: I48.91 Unspecified atrial fibrillation (principal) | CPT/HCPCS: 85610 ==

== ENCOUNTER 2017-11-16 10:50 | Outpatient (CLI) | payer MEDICARE, OTHER | END 2017-11-16 10:51 | disposition home or self-care (01) | LOC: LAB.F 10:50 | PROVIDERS: ATTEND Family Medicine | DX: I48.91 Unspecified atrial fibrillation (principal) | CPT/HCPCS: 85610 ==

== ENCOUNTER 2017-12-21 13:53 | Outpatient (CLI) | payer MEDICARE, OTHER | END 2017-12-21 13:54 | disposition home or self-care (01) | LOC: LAB.F 13:53 | PROVIDERS: ATTEND Family Medicine | DX: I48.91 Unspecified atrial fibrillation (principal) | CPT/HCPCS: 85610 ==

== ENCOUNTER 2018-02-02 14:20 | Emergency (ER) | payer MEDICARE, OTHER ==
[2018-02-02 14:29] VITALS: BP 113/65
--- NOTE | 2018-02-02 16:46 | ED Physician Documentation ---
PD HPI TRUNK INJURY - Stated complaint Stated Complaint: GLF/RIB PX LT - Chief complaint Chief Complaint: General - History obtained from History obtained from: Patient - History of Present Illness Location: Left chest Type of injury: Fall Timing - onset: How many days ago (6) Timing - duration: Days (6) Timing - details: Abrupt onset (fell and struck left ribs 6 days ago. Still hurts with palpation and ROM. Here for evaluation.) Quality: Pain, Aching Improved by: Rest Worsened by: Moving, Palpating Associated symtptoms: No: Weakness, Numbness Contributing factors: No: Anticoagulated Where injury occured: Home Similar symptoms before: Has not had sx before Recently seen: Not recently seen Review of Systems Constitutional: denies: Fever, Chills Nose: denies: Rhinorrhea / runny nose, Congestion Throat: denies: Sore throat Cardiac: reports: Chest pain / pressure. denies: Palpitations, Pedal edema, Calf pain Respiratory: denies: Dyspnea, Cough, Wheezing GI: denies: Abdominal Pain, Nausea, Vomiting Skin: denies: Abrasion (s), Laceration (s) Neurologic: denies: Focal weakness, Numbness PD PAST MEDICAL HISTORY - Past Medical History Past Medical History: Yes Cardiovascular: Hypertension, High cholesterol, Coronary artery disease, Atrial fibrillation Neuro: CVA : Incontinence HEENT: Chronic hearing loss Psych: None Musculoskeletal: Hemiplegia Derm: None - Past Surgical History Past Surgical History: No Ortho: Other Cardiovascular: Coronary stent - Present Medications Home Medications: Ambulatory Orders Medication Instructions Recorded Confirmed Alendronate [Fosamax] 70 mg PO Q7D 06/23/14 09/02/17 Aspirin [Aspir 81] 81 mg PO DAILY 06/23/14 09/02/17 Lisinopril 40 mg PO BID 06/23/14 09/02/17 Potassium Chloride 10 meq PO BIDWM 06/23/14 09/02/17 Warfarin [Coumadin] 5 mg PO MOWEFR@2100 06/23/14 09/02/17 amLODIPine [Norvasc] 5 mg PO QPM 06/23/14 09/02/17 Calcium Carbonate/Vitamin D3 1 tab PO DAILY 02/20/17 09/02/17 [Calcium 600-Vit D3 400 Tablet] Multivitamin [Theragran] 1 tab PO DAILY 02/20/17 09/02/17 Warfarin [Coumadin] 2.5 mg PO SUTUTHSA@2100 02/20/17 09/02/17 diltiaZEM [Cardizem] 30 mg PO Q6H #30 tablet 02/24/17 09/02/17 Atorvastatin Calcium 20 mg PO DAILY 09/02/17 09/02/17 Fluoxetine HCl 20 mg PO DAILY 09/02/17 09/02/17 Amox/Clav 875/125 [Augmentin 1 tab PO BIDWM #8 tablet 09/04/17 875/125] Saccharomyces Boulardii [Florastor] 250 mg PO BID #8 capsule 09/04/17 - Allergies Allergies/Adverse Reactions: Allergies Allergy/AdvReac Type Severity Reaction Status Date / Time No Known Drug Allergies Allergy Verified 02/02/18 14:29 - Social History Does the pt smoke?: No Smoking Status: Never smoker Does the pt drink ETOH?: No Does the pt have substance abuse?: No - Immunizations Immunizations are current?: Yes - POLST Patient has POLST: Yes POLST Status: Full Code PD ED PE NORMAL - Vitals Vital signs reviewed: Yes - General General: Alert and oriented X 3, No acute distress, Well developed/nourished - Neck Neck: Supple, no meningeal sign, No bony TTP, No adenopathy - Cardiac Cardiac: RRR, No murmur - Respiratory Respiratory: Other (tenderness left lateral chestwall without bruising nor crepitance. ) - Abdomen Abdomen: Soft, Non tender Results - Vitals Vitals: Vital Signs - 24 hr 02/02/18 14:26 Temperature 35.3 C L Heart Rate 93 Respiratory 16 Rate Blood Pressure 113/65 O2 Saturation 96 Oxygen O2 Source [With Activity] Room air O2 Source Room air - Rads (name of study) ribs with chest Radiology: Prelim report reviewed (lungs are okay. There is subtle defect at 8th rib, c/w nondisplaced rib fracture. ), EMP read contemporaneously PD MEDICAL DECISION MAKING - ED course Complexity details: reviewed results, considered differential (has rib defect in area of her pain, c/w nondisplaced rib fracture. ), d/w patient Departure - Departure Disposition: 01 Home, Self Care Clinical Impression: Accidental fall Qualifiers: Encounter type: initial encounter Qualified Code(s): W19.XXXA - Unspecified fall, initial encounter Rib fracture Qualifiers: Encounter type: initial encounter Rib fracture type: single rib Fracture type: closed Laterality: left Qualified Code(s): S22.32XA - Fracture of one rib, left side, initial encounter for closed fracture Condition: Stable Record reviewed to determine appropriate education?: Yes Instructions: ED Fx Rib Follow-Up: Ru Carr MD [Primary Care Provider] - Comments: Tylenol 500-650 mg 4 times a day for pains. The rib fracture is nondisplaced and should heal okay over time. However will take several weeks to heal up. Activity as feel able. If you get assistance with lifts and transfer, have them not hold you by the ribs but rather the under the arms or waist belt instead so it does not hit on the sore spot. Discharge Date/Time: 02/02/18 18:22
--- NOTE | 2018-02-02 17:55 | XRAY Report ---
Reason: fell few days ago; pain left chest Procedure Date: 02/02/2018 Accession Number: [id number] / [id number] Procedure: XR - Ribs w/PA Chest LT CPT Code: FULL RESULT: EXAM: LEFT RIB RADIOGRAPHY EXAM DATE: 02/02/2018 05:32 PM. CLINICAL HISTORY: Fell few days ago; pain left chest. COMPARISON: CHEST 1 VIEW 09/02/2017 4:41 AM. TECHNIQUE: 1 view of the chest and 2 views of the ribs. FINDINGS: Bones: Left lateral eighth rib mild indentation of the outer cortex, could represent a nondisplaced eighth rib fracture. This is near the area of pain. Otherwise, no acute fractures are seen. Demineralized bones. Lungs: Minimal bibasilar probable atelectasis. No pleural effusion or pneumothorax. Mediastinum: Cardiomegaly. IMPRESSION: Left lateral eighth rib mild indentation of the outer cortex, could represent a nondisplaced eighth rib fracture. This is near the area of pain. Otherwise, no acute fractures are seen. Demineralized bones. Cardiomegaly. RADIA
== END 2018-02-02 18:22 | disposition home or self-care (01) ==
LOC: ED 14:20
DX: S22.32XA Fracture of one rib, left side, initial encounter for closed fracture (principal); W18.30XA Fall on same level, unspecified, initial encounter; W22.09XA Striking against other stationary object, initial encounter; I10 Essential (primary) hypertension; I25.10 Atherosclerotic heart disease of native coronary artery without angina pectoris; G81.90 Hemiplegia, unspecified affecting unspecified side; I48.91 Unspecified atrial fibrillation; Z79.01 Long term (current) use of anticoagulants; Z79.82 Long term (current) use of aspirin; Z86.73 Personal history of transient ischemic attack (TIA), and cerebral infarction without residual deficits; Z95.5 Presence of coronary angioplasty implant and graft
CPT/HCPCS: 99283

== ENCOUNTER 2018-11-06 07:33 | Outpatient (CLI) | payer MEDICARE, OTHER | END 2018-11-06 07:34 | disposition critical access hospital (66) | LOC: EMS 07:33 | PROVIDERS: ATTEND Surgery | DX: R07.81 Pleurodynia (principal); M79.602 Pain in left arm; R50.9 Fever, unspecified | CPT/HCPCS: A0425; A0427 ==

== ENCOUNTER 2018-11-06 07:59 | Inpatient (IN) | payer MEDICARE, OTHER ==
[2018-11-06] MEDS ORDERED: SODIUM CHLORIDE 0.9% 1,000 ML IV ONE (08:10)
--- NOTE | 2018-11-06 08:13 | ED Physician Documentation ---
PD HPI CHEST PAIN - Stated complaint Stated Complaint: RIB PX - History obtained from History obtained from: Patient, EMS - History of Present Illness Timing - onset: Today Timing - onset during: Rest Timing - details: Still present Quality: Pain Location: Right chest Worsened by: Inspiration, Movement, Palpation Similar symptoms before: Has not had sx before - Additional information Additional information: The patient is an 83-year-old female with history of CVA with right-sided neurologic deficit, who arrives via ambulance from [facility] with complaint of right-sided chest pain. The pain started this morning, with no known injury. The patient states that there was no pain yesterday. The pain is worse with movement, palpation, or deep inspiration. She reports cough and fever. She denies shortness of breath. She denies history of similar symptoms in the past. Review of Systems Constitutional: reports: Fever Nose: denies: Congestion Throat: denies: Sore throat Cardiac: reports: Chest pain / pressure (Right-sided.) Respiratory: reports: Cough. denies: Dyspnea GI: denies: Nausea, Vomiting : denies: Dysuria Skin: denies: Rash Musculoskeletal: reports: Extremity swelling. denies: Extremity pain Neurologic: reports: Focal weakness (Right hemiplegia.). denies: Headache PD PAST MEDICAL HISTORY - Past Medical History Cardiovascular: Hypertension, High cholesterol, Coronary artery disease, Atrial fibrillation Neuro: CVA : Incontinence HEENT: Chronic hearing loss Psych: None Musculoskeletal: Hemiplegia Derm: None - Past Surgical History Past Surgical History: No Ortho: Other Cardiovascular: Coronary stent - Present Medications Home Medications: Ambulatory Orders Medication Instructions Recorded Confirmed Aspirin [Aspir 81] 81 mg PO DAILY 06/23/14 09/02/17 Lisinopril 40 mg PO DAILY 06/23/14 11/06/18 Potassium Chloride 10 meq PO DAILYWM 06/23/14 11/06/18 Calcium Carbonate/Vitamin D3 1 tab PO DAILY 02/20/17 09/02/17 [Calcium 600-Vit D3 400 Tablet] Multivitamin [Theragran] 1 tab PO DAILY 02/20/17 09/02/17 Fluoxetine HCl 20 mg PO DAILY 09/02/17 11/06/18 Metoprolol Succinate 25 mg PO DAILY 11/06/18 11/06/18 Rivaroxaban [Xarelto] 20 mg PO QDDINNER 11/06/18 11/06/18 Simvastatin 40 mg PO QPM 11/06/18 11/06/18 amLODIPine [Norvasc] 5 mg PO QPM 11/06/18 11/06/18 - Allergies Allergies/Adverse Reactions: Allergies Allergy/AdvReac Type Severity Reaction Status Date / Time No Known Drug Allergies Allergy Verified 02/02/18 14:29 - Social History Does the pt smoke?: No Smoking Status: Never smoker Does the pt drink ETOH?: No Does the pt have substance abuse?: No - Immunizations Immunizations are current?: Yes - POLST Patient has POLST: Yes POLST Status: Full Code PD ED PE NORMAL - Vitals Vital signs reviewed: Yes (Borderline hypertension initially.) - HEENT HEENT: Atraumatic, PERRL, EOMI, Pharynx benign - Neck Neck: Supple, no meningeal sign, No adenopathy, No JVD - Cardiac Cardiac: RRR - Respiratory Respiratory: No respiratory distress, Clear bilaterally, Other (Tenderness to palpation of the right lower chest wall.) - Abdomen Abdomen: Soft, Other (Mild tenderness to palpation in right upper quadrant, without rebound or guarding.) - Back Back: No CVA TTP, No spinal TTP - Derm Derm: No rash - Extremities Extremities: No calf tenderness / cord, Other (2+ pedal edema bilaterally.) - Neuro Neuro: Alert and oriented X 3, Other (Right-sided hemiplegia. Expressive a aphasia, but responds appropriately to yes and no type questions.) Results - Vitals Vitals: Vital Signs - 24 hr 11/06/18 11/06/18 08:04 11:01 Temperature 37 C Heart Rate 98 103 H Respiratory 20 17 Rate Blood Pressure 133/92 H 119/76 O2 Saturation 2 L 95 Oxygen O2 Source [With Activity] Room air O2 Source Nasal cannula - EKG (time done) 08:12 Rate: Rate (enter#) (104) Rhythm: Atrial fibrillation [place]: Normal QRS: Normal Ischemia: Normal ST segments Compare to prior EKG: Unchanged from prior EKG Computer interpretation: Agree with computer - Labs Labs: Laboratory Tests 11/06/18 11/06/18 11/06/18 08:20 08:20 08:20 WBC 8.2 RBC 4.18 L Hgb 12.2 Hct 39.5 MCV 94.5 MCH 29.2 MCHC 30.9 L RDW 14.5 Plt Count 290 MPV 9.7 Neut # (Auto) 5.5 Lymph # (Auto) 1.3 L [place] # (Auto) 0.9 Eos # (Auto) 0.4 Baso # (Auto) 0.0 Absolute Nucleated RBC 0.00 Nucleated RBC % 0.0 PT INR Sodium 142 Potassium 4.4 Chloride 106 Carbon Dioxide 26 Anion Gap 10.0 BUN 18 Creatinine 0.7 Estimated GFR (MDRD) 80 L Glucose 98 Lactic Acid Calcium 9.1 Total Bilirubin 0.6 AST 22 ALT 23 Alkaline Phosphatase 79 Troponin I < 0.04 B-Natriuretic Peptide Total Protein 7.8 Albumin 3.5 Globulin 4.3 H Albumin/Globulin Ratio 0.8 L Lipase 33 Urine Color Urine Clarity Urine pH Ur Specific [place] Urine Protein Urine Glucose (UA) Urine Ketones Urine Occult Blood Urine Nitrite Urine Bilirubin Urine Urobilinogen Ur Leukocyte Esterase Urine RBC Urine WBC Urine WBC Clumps Ur Squamous Epith Cells Urine Bacteria Ur Microscopic Review Urine Culture Comments 11/06/18 11/06/18 11/06/18 08:20 08:20 09:18 WBC RBC Hgb Hct MCV MCH MCHC RDW Plt Count MPV Neut # (Auto) Lymph # (Auto) [place] # (Auto) Eos # (Auto) Baso # (Auto) Absolute Nucleated RBC Nucleated RBC % PT 19.4 H INR 1.7 H Sodium Potassium Chloride Carbon Dioxide Anion Gap BUN Creatinine Estimated GFR (MDRD) Glucose Lactic Acid Calcium Total Bilirubin AST ALT Alkaline Phosphatase Troponin I B-Natriuretic Peptide 570 H Total Protein Albumin Globulin Albumin/Globulin Ratio Lipase Urine Color YELLOW Urine Clarity SL. CLOUDY Urine pH 6.5 Ur Specific [place] 1.015 Urine Protein NEGATIVE Urine Glucose (UA) NEGATIVE Urine Ketones NEGATIVE Urine Occult Blood TRACE-INTA Urine Nitrite POSITIVE H Urine Bilirubin NEGATIVE Urine Urobilinogen 0.2 (NORMAL) Ur Leukocyte Esterase MODERATE H Urine RBC 6-10 H Urine WBC >25 H Urine WBC Clumps PRESENT Ur Squamous Epith Cells FEW Squamous Urine Bacteria Moderate H Ur Microscopic Review INDICATED Urine Culture Comments INDICATED 11/06/18 10:10 WBC RBC Hgb Hct MCV MCH MCHC RDW Plt Count MPV Neut # (Auto) Lymph # (Auto) [place] # (Auto) Eos # (Auto) Baso # (Auto) Absolute Nucleated RBC Nucleated RBC % PT INR Sodium Potassium Chloride Carbon Dioxide Anion Gap BUN Creatinine Estimated GFR (MDRD) Glucose Lactic Acid 0.6 Calcium Total Bilirubin AST ALT Alkaline Phosphatase Troponin I B-Natriuretic Peptide Total Protein Albumin Globulin Albumin/Globulin Ratio Lipase Urine Color Urine Clarity Urine pH Ur Specific [place] Urine Protein Urine Glucose (UA) Urine Ketones Urine Occult Blood Urine Nitrite Urine Bilirubin Urine Urobilinogen Ur Leukocyte Esterase Urine RBC Urine WBC Urine WBC Clumps Ur Squamous Epith Cells Urine Bacteria Ur Microscopic Review Urine Culture Comments - Rads (name of study) 2-view CXR Radiology: Prelim report reviewed, EMP read contemporaneously, See rad report (Interval development of basilar airspace opacities right greater than left with a component of edema and likely small right pleural effusion.) right ribs Radiology: Prelim report reviewed, EMP read contemporaneously, See rad report (Limited examination, with no grossly displaced rib fractures seen.) PD MEDICAL DECISION MAKING - ED course Complexity details: reviewed old records, reviewed results, re-evaluated patient, considered differential, d/w patient, d/w strategic consultant ED course: The patient's presentation is most consistent with pneumonia with right lower chest pain, and basilar opacities on chest x-ray. Due to the pain in her right lower chest wall x-rays of her right ribs were obtained, and reveal no sign of displaced rib fractures. I doubt pulmonary embolus. Congestive failure is a consideration. EKG is unchanged from previous EKG, and troponin is normal. BNP is elevated at 570. Additional laboratory studies reveal urinary tract infection with pyuria and bacteriuria from a catheterized urine specimen. Treatment in the emergency department included administration of ceftriaxone 1 g IV and Zithromax 500 mg IV, after blood cultures have been obtained. I discussed her condition with Dr. Arana who accepts her for further evaluation and treatment. Departure - Departure Disposition: ED Place in Observation Clinical Impression: Pneumonia Qualifiers: Pneumonia type: due to unspecified organism Laterality: bilateral Lung location: lower lobe of lung Qualified Code(s): J18.1 - Lobar pneumonia, unspecified organism UTI (urinary tract infection) Qualifiers: Urinary tract infection type: acute cystitis Hematuria presence: without hematuria Qualified Code(s): N30.00 - Acute cystitis without hematuria Condition: Stable Discharge Date/Time: 11/06/18 13:36
[2018-11-06 08:34] LABS: BASOPHILS % (AUTO) 0.5 %; EOSINOPHILS # (AUTO) 0.4 10^3/uL (0.0-0.7); EOSINOPHILS % (AUTO) 4.7 %; HGB - HEMOGLOBIN 12.2 g/dL (12.0-16.0); LYMPHOCYTES # (AUTO) 1.3 10^3/uL (1.5-3.5); MEAN CORPUSCULAR HEMOGLOBIN 29.2 pg (27.0-31.0); MEAN CORPUSCULAR HGB CONC 30.9 g/dL (32.0-36.0); MEAN CORPUSCULAR VOLUME 94.5 fL (81.0-99.0); MEAN PLATELET VOLUME 9.7 fL (7.9-10.8); MONOCYTES # (AUTO) 0.9 10^3/uL (0.0-1.0); MONOCYTES % (AUTO) 10.8 %; NEUTROPHILS # (AUTO) 5.5 10^3/uL (1.5-6.6); NEUTROPHILS % (AUTO) 67.8 %; PLT - PLATELET COUNT 290 10^3/uL (130-450); RED BLOOD COUNT 4.18 10^6/uL (4.20-5.40); RED CELL DISTRIBUTION WIDTH 14.5 % (12.0-15.0); WHITE BLOOD COUNT 8.2 x10^3/uL (4.8-10.8)
[2018-11-06 08:42] LABS: ALBUMIN 3.5 g/dL (3.2-5.5); ALBUMIN/GLOBULIN RATIO 0.8 (1.0-2.2); BILIRUBIN,TOTAL 0.6 mg/dL (0.2-1.0); CALCIUM 9.1 mg/dL (8.5-10.3); CREATININE 0.7 mg/dL (0.4-1.0); INR 1.7 (0.8-1.2); PT - PROTHROMBIN TIME 19.4 secs (9.9-12.6); TOTAL PROTEIN 7.8 g/dL (6.7-8.2)
--- NOTE | 2018-11-06 09:06 | XRAY Report ---
Reason: right chest pain Procedure Date: 11/06/2018 Accession Number: [id number] / [id number] Procedure: XR - Chest 2 View X-Ray CPT Code: 31428 FULL RESULT: EXAM: CHEST RADIOGRAPHY EXAM DATE: 11/06/2018 08:57 AM. CLINICAL HISTORY: Right chest pain. COMPARISON: CHEST 1 VIEW 09/02/2017 4:41 AM. TECHNIQUE: 2 views. FINDINGS: Lungs/Pleura: There are new bibasilar opacities with hazy opacification at the right lung base suggestive of a small component of pleural effusion. No sizable pneumothorax. Peribronchial cuffing is supportive of airway thickening in the setting of [place] B lines suggesting a component of pulmonary edema. Mediastinum: Redemonstration of cardiomegaly including suggestion of right atrial enlargement, tortuous silhouette. Other: None. IMPRESSION: Interval development of basilar airspace opacities right greater than left with a component of edema and likely small right pleural effusion. RADIA
[2018-11-06 09:31] LABS: BILIRUBIN,URINE NEGATIVE (NEGATIVE); GLUCOSE, URINE (UA) NEGATIVE (NEGATIVE); KETONES,URINE (UA) NEGATIVE (NEGATIVE); LEUKOCYTE ESTERASE, URINE MODERATE (NEGATIVE); NITRITE,URINE POSITIVE (NEGATIVE); OCCULT BLOOD,URINE TRACE-INTA (NEGATIVE); PH,URINE 6.5 PH (5.0-7.5); PROTEIN,URINE NEGATIVE (NEGATIVE); UROBILINOGEN,URINE 0.2 (NORMAL) E.U./dL (NORMAL)
[2018-11-06 09:32] LABS: CLARITY,URINE SL. CLOUDY (CLEAR)
[2018-11-06 09:38] LABS: BACTERIA,URINE Moderate /HPF (None Seen); SQUAMOUS EPITHELIAL CELL,UR FEW Squamous (<= Few); WBC CLUMPS,URINE PRESENT
[2018-11-06] MEDS ORDERED: cefTRIAXone 1 GM in SODIUM CHLORIDE 0.9% MINIBAG 100 ML IV STA (10:01)
[2018-11-06] MEDS ORDERED: AZITHROMYCIN INJ 500 MG in SODIUM CHLORIDE 0.9% 250 ML IV STA (10:02)
--- NOTE | 2018-11-06 11:52 | XRAY Report ---
Reason: Right sided chest pain Procedure Date: 11/06/2018 Accession Number: [id number] / [id number] Procedure: XR - Ribs 2 View RT CPT Code: FULL RESULT: EXAM: RIGHT RIB RADIOGRAPHY EXAM DATE: 11/06/2018 11:32 AM. CLINICAL HISTORY: Right-sided chest pain. COMPARISON: CHEST 2 VIEW 11/06/2018 8:12 AM. TECHNIQUE: 2 views. FINDINGS: The examination is markedly limited due to portable nature as well as the arm and metallic hardware overlying the region of interest on both projections. The patient was unable to cooperate with the examination. Bones: The bones are qualitatively osteopenic; this limits evaluation for underlying fractures or masses. Markedly limited exam with no definite fracture as seen. Lungs: Markedly abnormal rotation with suggestion of cardiomegaly and essentially inability to evaluate the lung adequately. Mediastinum: Suggestion of cardiomegaly, not adequately evaluated. Other: None. IMPRESSION: Markedly limited examination with no grossly displaced fracture seen. RADIA
[2018-11-06] MEDS ORDERED: PROCHLORPERAZINE 10 MG/2 ML VIAL IVP PRN (12:39)
[2018-11-06] MEDS ORDERED: ACETAMINOPHEN 325 MG TABLET PO PRN (12:39)
[2018-11-06] MEDS: HYDROcod/ACETAM 5/325 MG TABLET PO PRN ×2 (14:41→20:13)
[2018-11-06] MEDS: SODIUM CHLORIDE FLUSH 0.9% 10 ML SYRINGE IVP SCH (17:05)
[2018-11-06] MEDS: RIVAROXABAN 10 MG TABLET PO SCH (18:14)
--- NOTE | 2018-11-06 20:00 | HISTORY & PHYSICAL EXAMINATION ---
DATE OF SERVICE: 11/06/2018 Physician: Marce Bull MD HISTORY OF PRESENT ILLNESS: This is an 83-year-old white female with a history of a prior stroke, which left her with weakness on one side, dysarthria and mild memory problems, she also has a history of incontinence, hearing loss, CAD, chronic atrial fibrillation, hypertension. Patient started complaining to her detention staff of right-sided chest pain for which she was brought to the emergency room. Workup in the ER showed that she has both bilateral pneumonia and a right pleural effusion. She cannot give me detailed answers regarding the location of pain, but as she inspires she gets a sudden "grabbing" pain in a localized area, therefore it appears to be pleuritic in nature. There is no left-sided or central chest pain. She shakes her head "no" when asked has she ever had this before. She does not appear short of breath. Apparently, there has been no fever. 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 MEDICATIONS 1. Baby aspirin daily. 2. Lisinopril 40 mg daily. 3. Potassium chloride 10 mEq daily. 4. Calcium carbonate with vitamin D3 one tablet daily. 5. Multivitamin daily. 6. Fluoxetine 20 mg daily. 7. Toprol-XL 25 mg daily. 8. Xarelto 20 mg every evening. 9. Simvastatin 40 mg every night. 10. Amlodipine 5 mg every night. ALLERGIES: NO KNOWN ALLERGIES. REVIEW OF SYSTEMS: A comprehensive review of systems was performed by chart review and discussion with patient, the pertinent positives are listed above, the rest are negative. FAMILY HISTORY: No inherited diseases. SOCIAL HISTORY: She lives in a detention, is a nonsmoker who never smoked, uses no alcohol. No illicit drug use. PHYSICAL EXAMINATION GENERAL: Thin, elderly, white female. She is able to feed herself currently and appears in no distress. VITAL SIGNS: Blood pressure 115/68, heart rate 94 in atrial fibrillation. O2 saturation is 92% on 2 liters oxygen by nasal cannula. HEENT: Shows that she has hearing loss and dysarthria, oral mucosa is moist. NECK: No JVD in a vertical position. No carotid bruits. CHEST: Diminished breath sounds at both bases. No rales or rhonchi. HEART: Distant heart sounds. No murmur. ABDOMEN: Soft, nontender. No organomegaly. EXTREMITIES: No clubbing, cyanosis or edema. NEUROLOGIC: The right side has mild weakness of the arm and leg. Her speech is dysarthric. LABORATORY DATA: Normal electrolytes. Normal BUN and creatinine. Normal lactic acid. Normal liver tests. BNP 570. INR 1.7, but this is not reliable in a patient on Xarelto. CBC shows white count of 8.2, hemoglobin 12, platelet count normal at 290. Urinalysis showed moderate bacteria, moderate white cells, positive nitrite. CHEST X-RAY: Bilateral basilar opacities, right greater than left, small right pleural effusion. Rib x-rays on the right: No fractures. EKG: Atrial fibrillation, rate of 104, low voltage in the limb leads, no ST or T wave abnormalities. DIAGNOSES 1. Healthcare-acquired pneumonia, bilateral. 2. Pleural effusion, which may be due to CHF or related to pneumonia. 2. Urinary tract infection. 3. Intractable pain on the right side of the chest. 4. Pleuritic chest pain. 5. Old stroke. 6. Chronic atrial fibrillation, on anticoagulation. 7. History of coronary artery disease. PLAN: Place patient in Observation status, on telemetry. Continue with all her home medications. Begin IV antibiotics to cover healthcare-acquired pneumonia, using IV vancomycin, IV ceftriaxone. If there is production of sputum, collected for culture and sensitivity. Begin pulmonary toilet with p.r.n. nebulizers, secretion management, coughing, and deep breathing. Obtain blood cultures if she spikes a fever. Begin management for her pain by both treating the underlying infection and fluid and also pain control with narcotics if needed. Start gentle diuresis regarding the pleural effusion and obtain an Echo to establish LV and RV contractility. CODE STATUS: FULL CODE. DEEP VENOUS THROMBOSIS PROPHYLAXIS: Pharmacotherapy, on her Xarelto. ATTESTATION: Patient is expected to be discharged or transferred to another facility within 96 hours: Yes. cc: Walt Olson MD TD: 11/06/2018 19:36 MTDD
[2018-11-06] MEDS ORDERED: amLODIPine 5 MG TABLET PO SCH (21:00)
[2018-11-06] MEDS: FAMOTIDINE 20 MG TABLET PO SCH (21:04)
[2018-11-07 05:55] LABS: BASOPHILS % (AUTO) 0.3 %; EOSINOPHILS # (AUTO) 0.4 10^3/uL (0.0-0.7); EOSINOPHILS % (AUTO) 5.9 %; HGB - HEMOGLOBIN 12.2 g/dL (12.0-16.0); LYMPHOCYTES # (AUTO) 1.2 10^3/uL (1.5-3.5); LYMPHOCYTES % (AUTO) 15.3 %; MEAN CORPUSCULAR HEMOGLOBIN 29.6 pg (27.0-31.0); MEAN CORPUSCULAR HGB CONC 30.7 g/dL (32.0-36.0); MEAN CORPUSCULAR VOLUME 96.6 fL (81.0-99.0); MEAN PLATELET VOLUME 9.8 fL (7.9-10.8); MONOCYTES # (AUTO) 0.9 10^3/uL (0.0-1.0); NEUTROPHILS % (AUTO) 66.2 %; PLT - PLATELET COUNT 279 10^3/uL (130-450); RED BLOOD COUNT 4.12 10^6/uL (4.20-5.40); RED CELL DISTRIBUTION WIDTH 14.5 % (12.0-15.0); WHITE BLOOD COUNT 7.5 x10^3/uL (4.8-10.8)
[2018-11-07 06:11] LABS: CREATININE 0.5 mg/dL (0.4-1.0)
[2018-11-07] MEDS: HYDROcod/ACETAM 5/325 MG TABLET PO PRN ×3 (06:51→17:50)
[2018-11-07 06:55] LABS: INR 2.2 (0.8-1.2); PT - PROTHROMBIN TIME 24.2 secs (9.9-12.6)
[2018-11-07] MEDS: SODIUM CHLORIDE FLUSH 0.9% 10 ML SYRINGE IVP SCH ×3 (07:44→17:50)
[2018-11-07] MEDS: FAMOTIDINE 20 MG TABLET PO SCH ×2 (08:27→20:30)
[2018-11-07] MEDS: FUROSEMIDE 20 MG/2 ML VIAL IVP SCH (08:27)
[2018-11-07] MEDS: LACTOBACILLUS RHAMNOSUS GG CAPSULE PO SCH (08:28)
[2018-11-07] MEDS: cefTRIAXone 1 GM in SODIUM CHLORIDE 0.9% MINIBAG 100 ML IV SCH (08:28)
[2018-11-07] MEDS: MULTIVITAMIN TABLET PO SCH (08:28)
[2018-11-07] MEDS: ASPIRIN EC 81 MG TABLET PO SCH (08:28)
[2018-11-07] MEDS: FLUoxetine 10 MG CAPSULE PO SCH (08:28)
[2018-11-07] MEDS: AZITHROMYCIN 250 MG TABLET PO SCH (08:28)
[2018-11-07] MEDS: CALCIUM CARB (OYSTER SHELL) 500 MG TABLET PO SCH (08:28)
[2018-11-07] MEDS: SODIUM CHLORIDE FLUSH 0.9% 10 ML SYRINGE IVP PRN (08:28)
[2018-11-07] MEDS: POLYETHYLENE GLYCOL 3350 17 GM PACKET PO SCH (08:29)
[2018-11-07] MEDS ORDERED: ENOXAPARIN 40 MG/0.4 ML SYRINGE SUBQ SCH (09:00)
[2018-11-07] MEDS ORDERED: METOPROLOL SUCCINATE 25 MG TABLET PO SCH (09:00)
--- NOTE | 2018-11-07 15:40 | PROVIDER PROGRESS NOTE ---
Assessment/Plan - Problem List (1) HCAP (healthcare-associated pneumonia) Assessment/Plan: Patient has a significant pneumonia, it is bilateral and may be associated with the pleural effusion. She was desaturating on admission and attempts at removing supplemental oxygen today cause her to desaturate. Will admit her from Observation to full Inpatient status due to persistent oxygen desaturation. Continue with empiric IV antibiotic Ceftriaxone and oral Zithromax. Will change to entirely oral antibiotic tomorrow, and plan a 7 total course of antibiotic treatment. She has no cough or complaints of sputum. Will order Mucinex and a Flutter valve for better pulmonary toilet. (2) Pleural effusion Assessment/Plan: Gentle diuresis with Lasix was started and planned for 2-3 days. Echo was done today, to evaluate for new cardiomyopathy, and this showed stable, normal systolic function. Will order an anti-inflammatory agent, since this could be a parapneumonic ef fusion, and it willhekp with pleuritic CP. (3) Pleuritic chest pain Assessment/Plan: Will start NSAIDs (as above in #2). (4) UTI (urinary tract infection) Qualifiers: Urinary tract infection type: acute cystitis Hematuria presence: without hematuria Qualified Code(s): N30.00 - Acute cystitis without hematuria Assessment/Plan: Urine culture and blood cultures are pending. Her antibiotics chosen for the pneumonia, also cover her for gram-negative UTI. (5) Status post cerebrovascular accident Assessment/Plan: She has weakness and is mostly bedbound at the Detention. She also has dysa rthric speech. She is able to pivot to transfer but no further physical therapy is planned, in order to start to walk (6) Chronic a-fib Assessment/Plan: HR is in the 90's - low 100's. Will stop the Amlodipine and increase the B-blocer from daily to bid, for better rate control. Remain on telemetry. She is on anticoaguant, Xarelto, as pre-hospitalization. (7) HTN (hypertension) Assessment/Plan: She was on amlodipine and beta-queenie before admission. We will stop the amlodipine in order to increase the beta-queenie dose. - Current Meds Current Meds: Current Medications Generic Name Dose Route Start Last Admin Trade Name Freq PRN Reason Stop Dose Admin Acetaminophen 650 mg 11/06/18 12:39 11/06/18 14:41 Tylenol PO 650 mg Q4HR PRN Administration Pain or Fever > 38C (100.4F) Hydrocodone Bitart/Acetaminophen 1 tab 11/06/18 12:39 11/07/18 13:03 [place] 5/325 PO 1 tab Q4HR PRN Administration Pain 5 to 7 Amlodipine Besylate 5 mg 11/06/18 21:00 11/06/18 21:04 Norvasc PO 5 mg QPM FLO Administration Aspirin 81 mg 11/07/18 09:00 11/07/18 08:28 Ecotrin PO 81 mg DAILY FLO Administration Azithromycin 250 mg 11/07/18 09:00 11/07/18 08:28 Zithromax PO 250 mg DAILY FLO Administration Calcium Carbonate/Glycine 500 mg 11/07/18 09:00 11/07/18 08:28 Oysco-500 PO 500 mg DAILY FLO Administration Famotidine 20 mg 11/06/18 21:00 11/07/18 08:27 Pepcid PO 20 mg BID FLO Administration Fluoxetine HCl 20 mg 11/07/18 09:00 11/07/18 08:28 Prozac PO 20 mg DAILY FLO Administration Furosemide 20 mg 11/07/18 08:00 11/07/18 08:27 Lasix Inj 20mg Vial IVP 20 mg DAILY FLO Administration Ceftriaxone Sodium 1 gm/ 100 mls @ 200 mls/hr 11/07/18 09:00 11/07/18 08:58 Sodium Chloride IV Infused DAILY FLO Infusion Lactobacillus Rhamnosus 1 cap 11/07/18 09:00 11/07/18 08:28 Culturelle PO 1 cap DAILY FLO Administration Metoprolol Succinate 25 mg 11/07/18 09:00 11/07/18 08:27 Toprol Xl PO 25 mg DAILY FLO Administration Multivitamins 1 tab 11/07/18 09:00 11/07/18 08:28 Theragran PO 1 tab DAILY FLO Administration Polyethylene Glycol 17 gm 11/07/18 09:00 11/07/18 08:29 Miralax PO Not Given DAILY FLO Rivaroxaban 20 mg 11/06/18 18:00 11/06/18 18:14 Xarelto PO 20 mg QDDINNER FLO Administration Sodium Chloride 10 ml 11/06/18 12:39 11/07/18 08:28 Normal Saline Flush 0.9% IVP 30 ml PRN PRN Administration NEEDED PER PROVIDER ORDERS Sodium Chloride 10 ml 11/06/18 17:00 11/07/18 08:28 Normal Saline Flush 0.9% IVP 10 ml 0100,0900,1700 FLO Administration - Lab Result Lab results reviewed: Yes Fish Bone Diagrams: 11/07/18 05:18 11/07/18 05:18 - Additional Planning My Orders: My Active Orders 11/06/18 17:00 Sodium Chloride Flush 0.9% [Normal Saline Flush 0.9%] 10 ml IVP 0100,0900,1700 11/06/18 18:00 Rivaroxaban [Xarelto] 20 mg PO QDDINNER 11/06/18 21:00 Famotidine [Pepcid] 20 mg PO BID amLODIPine [Norvasc] 5 mg PO QPM 11/07/18 06:00 Echo Transthoracic Complete [ECHO] Routine 11/07/18 08:00 FUROSEMIDE INJ 20mg VIAL [LASIX INJ 20mg VIAL] 20 mg IVP DAILY 11/07/18 09:00 Aspirin EC [Ecotrin] 81 mg PO DAILY Azithromycin [Zithromax] 250 mg PO DAILY Calcium Carb (Oyster Shell) [Oysco-500] 500 mg PO DAILY FLUoxetine [PROzac] 20 mg PO DAILY Lactobacillus Rhamnosus GG [Culturelle] 1 cap PO DAILY Metoprolol Succinate [Toprol Xl] 25 mg PO DAILY Multivitamin [Theragran] 1 tab PO DAILY Polyethylene Glycol 3350 [Miralax] 17 gm PO DAILY cefTRIAXone [Rocephin] 1 gm Sodium Chloride 0.9% Minibag [Normal Saline 0.9% Minibag] 100 ml IV DAILY 11/07/18 15:37 Transfer [Admit \ Transfer \ Status] [RC] .ONCE 11/08/18 05:00 BMP - BASIC METABOLIC PANEL [CHEM] DAILYLAB CBC - COMP BLD CT W/AUTO DIFF [HEME] DAILYLAB PT WITH INR [COAG] DAILYLAB 11/09/18 05:00 BMP - BASIC METABOLIC PANEL [CHEM] DAILYLAB CBC - COMP BLD CT W/AUTO DIFF [HEME] DAILYLAB PT WITH INR [COAG] DAILYLAB Subjective - Subjective Patient Reports: Feeling Better, Other Objective Vital Signs: Vital Signs - 24 hr 11/06/18 11/06/18 11/06/18 16:43 20:10 23:35 Temperature 36.6 C 36.6 C 36.3 C L Heart Rate 94 Heart Rate [ 89 87 Brachial] Respiratory 18 18 16 Rate Blood Pressure 120/53 L 108/56 L [Left Brachial artery] O2 Saturation 95 94 93 11/07/18 11/07/18 11/07/18 04:50 07:42 07:54 Temperature 36.4 C L 36.4 C L Heart Rate Heart Rate [ 98 105 H Brachial] Respiratory 16 14 18 Rate Blood Pressure 120/65 122/61 [Left Brachial artery] O2 Saturation 92 96 88 L 11/07/18 11/07/18 07:55 13:00 Temperature 36.4 C L Heart Rate Heart Rate [ 94 Brachial] Respiratory 18 14 Rate Blood Pressure 109/61 [Left Brachial artery] O2 Saturation 94 91 L Oxygen O2 Source [With Activity] Room air O2 Source Nasal cannula I&O (Last 24 Hrs): Intake and Output Totals x24h 11/05/18 11/06/18 11/07/18 23:59 23:59 23:59 Intake Total 1790 780 Balance 1790 780 General: Alert, Oriented x3 HEENT: Mucous membr. moist/pink Neck: Supple, No JVD Neuro: Other (Dysarthric speech, L sided weakness.) Cardiovascular: No murmurs Respiratory: No respiratory distress, Other (Diminished breath sounds at both bases.) Abdomen: Soft Extremities: No edema - Results Results: Laboratory Results WBC 7.5 x10^3/uL (4.8-10.8) 11/07/18 05:18 RBC 4.12 10^6/uL (4.20-5.40) L 11/07/18 05:18 Hgb 12.2 g/dL (12.0-16.0) 11/07/18 05:18 Hct 39.8 % (37.0-47.0) 11/07/18 05:18 MCV 96.6 fL (81.0-99.0) 11/07/18 05:18 MCH 29.6 pg (27.0-31.0) 11/07/18 05:18 MCHC 30.7 g/dL (32.0-36.0) L 11/07/18 05:18 RDW 14.5 % (12.0-15.0) 11/07/18 05:18 Plt Count 279 10^3/uL (130-450) 11/07/18 05:18 MPV 9.8 fL (7.9-10.8) 11/07/18 05:18 Neut # (Auto) 5.0 10^3/uL (1.5-6.6) 11/07/18 05:18 Lymph # (Auto) 1.2 10^3/uL (1.5-3.5) L 11/07/18 05:18 [place] # (Auto) 0.9 10^3/uL (0.0-1.0) 11/07/18 05:18 Eos # (Auto) 0.4 10^3/uL (0.0-0.7) 11/07/18 05:18 Baso # (Auto) 0.0 10^3/uL (0.0-0.1) 11/07/18 05:18 Absolute Nucleated RBC 0.00 x10^3/uL 11/07/18 05:18 Nucleated RBC % 0.0 /100WBC 11/07/18 05:18 PT 24.2 secs (9.9-12.6) H 11/07/18 05:18 INR 2.2 (0.8-1.2) H 11/07/18 05:18 Sodium 140 mmol/L (135-145) 11/07/18 05:18 Potassium 4.3 mmol/L (3.5-5.0) 11/07/18 05:18 Chloride 104 mmol/L (101-111) 11/07/18 05:18 Carbon Dioxide 25 mmol/L (21-32) 11/07/18 05:18 Anion Gap 11.0 (6-13) 11/07/18 05:18 BUN 10 mg/dL (6-20) 11/07/18 05:18 Creatinine 0.5 mg/dL (0.4-1.0) 11/07/18 05:18 Estimated GFR (MDRD) 118 (>89) 11/07/18 05:18 Glucose 93 mg/dL (70-100) 11/07/18 05:18 Lactic Acid 0.6 mmol/L (0.5-2.2) 11/06/18 10:10 Calcium 9.0 mg/dL (8.5-10.3) 11/07/18 05:18 Total Bilirubin 0.6 mg/dL (0.2-1.0) 11/06/18 08:20 AST 22 IU/L (10-42) 11/06/18 08:20 ALT 23 IU/L (10-60) 11/06/18 08:20 Alkaline Phosphatase 79 IU/L (42-121) 11/06/18 08:20 Troponin I < 0.04 ng/mL (<0.49) 11/06/18 08:20 B-Natriuretic Peptide 621 pg/mL (5-100) H 11/07/18 05:18 Total Protein 7.8 g/dL (6.7-8.2) 11/06/18 08:20 Albumin 3.5 g/dL (3.2-5.5) 11/06/18 08:20 Globulin 4.3 g/dL (2.1-4.2) H 11/06/18 08:20 Albumin/Globulin Ratio 0.8 (1.0-2.2) L 11/06/18 08:20 Lipase 33 U/L (22-51) 11/06/18 08:20 TSH 5.33 uIU/mL (0.34-5.60) 11/07/18 05:18 Urine Color YELLOW 11/06/18 09:18 Urine Clarity SL. CLOUDY (CLEAR) 11/06/18 09:18 Urine pH 6.5 PH (5.0-7.5) 11/06/18 09:18 Ur Specific [place] 1.015 (1.002-1.030) 11/06/18 09:18 Urine Protein NEGATIVE mg/dL (NEGATIVE) 11/06/18 09:18 Urine Glucose (UA) NEGATIVE mg/dL (NEGATIVE) 11/06/18 09:18 Urine Ketones NEGATIVE mg/dL (NEGATIVE) 11/06/18 09:18 Urine Occult Blood TRACE-INTA (NEGATIVE) 11/06/18 09:18 Urine Nitrite POSITIVE (NEGATIVE) H 11/06/18 09:18 Urine Bilirubin NEGATIVE (NEGATIVE) 11/06/18 09:18 Urine Urobilinogen 0.2 (NORMAL) E.U./dL (NORMAL) 11/06/18 09:18 Ur Leukocyte Esterase MODERATE (NEGATIVE) H 11/06/18 09:18 Urine RBC 6-10 /HPF (0-5) H 11/06/18 09:18 Urine WBC >25 /HPF (0-5) H 11/06/18 09:18 Urine WBC Clumps PRESENT 11/06/18 09:18 Ur Squamous Epith Cells FEW Squamous (<= Few) 11/06/18 09:18 Urine Bacteria Moderate /HPF (None Seen) H 11/06/18 09:18 Ur Microscopic Review INDICATED 11/06/18 09:18 Urine Culture Comments INDICATED 11/06/18 09:18 - Procedures Procedures: Procedures REPOSITION R UP FEMUR WITH INTRAMED FIX, OPEN APPROACH (02/20/17)
[2018-11-07] MEDS: RIVAROXABAN 10 MG TABLET PO SCH (17:50)
[2018-11-07] MEDS: IBUPROFEN 600 MG TABLET PO SCH (19:12)
[2018-11-07] MEDS: METOPROLOL SUCCINATE 25 MG TABLET PO SCH (20:30)
[2018-11-07] MEDS: guaiFENesin 600 MG TABLET PO SCH (20:30)
[2018-11-08] MEDS: SODIUM CHLORIDE FLUSH 0.9% 10 ML SYRINGE IVP SCH ×3 (01:12→17:32)
[2018-11-08 05:47] LABS: BASOPHILS % (AUTO) 0.3 %; EOSINOPHILS # (AUTO) 0.4 10^3/uL (0.0-0.7); EOSINOPHILS % (AUTO) 6.5 %; HGB - HEMOGLOBIN 11.7 g/dL (12.0-16.0); LYMPHOCYTES % (AUTO) 14.8 %; MEAN CORPUSCULAR HEMOGLOBIN 28.7 pg (27.0-31.0); MEAN CORPUSCULAR VOLUME 95.6 fL (81.0-99.0); MEAN PLATELET VOLUME 9.9 fL (7.9-10.8); MONOCYTES # (AUTO) 0.9 10^3/uL (0.0-1.0); MONOCYTES % (AUTO) 13.7 %; NEUTROPHILS # (AUTO) 4.1 10^3/uL (1.5-6.6); NEUTROPHILS % (AUTO) 64.5 %; PLT - PLATELET COUNT 276 10^3/uL (130-450); RED BLOOD COUNT 4.08 10^6/uL (4.20-5.40); RED CELL DISTRIBUTION WIDTH 14.5 % (12.0-15.0); WHITE BLOOD COUNT 6.4 x10^3/uL (4.8-10.8)
[2018-11-08 05:55] LABS: CALCIUM 8.7 mg/dL (8.5-10.3); CREATININE 0.5 mg/dL (0.4-1.0); INR 1.6 (0.8-1.2); PT - PROTHROMBIN TIME 17.8 secs (9.9-12.6)
[2018-11-08] MEDS: guaiFENesin 600 MG TABLET PO SCH ×2 (08:56→21:01)
[2018-11-08] MEDS: IBUPROFEN 600 MG TABLET PO SCH ×3 (08:56→17:28)
[2018-11-08] MEDS: ASPIRIN EC 81 MG TABLET PO SCH (08:56)
[2018-11-08] MEDS: MULTIVITAMIN TABLET PO SCH (08:56)
[2018-11-08] MEDS: FAMOTIDINE 20 MG TABLET PO SCH ×2 (08:57→21:06)
[2018-11-08] MEDS: CALCIUM CARB (OYSTER SHELL) 500 MG TABLET PO SCH (08:57)
[2018-11-08] MEDS: FUROSEMIDE 20 MG/2 ML VIAL IVP SCH (08:57)
[2018-11-08] MEDS: cefTRIAXone 1 GM in SODIUM CHLORIDE 0.9% MINIBAG 100 ML IV SCH (08:57)
[2018-11-08] MEDS: METOPROLOL SUCCINATE 25 MG TABLET PO SCH ×2 (08:57→21:04)
[2018-11-08] MEDS: AZITHROMYCIN 250 MG TABLET PO SCH (08:57)
[2018-11-08] MEDS: FLUoxetine 10 MG CAPSULE PO SCH (08:57)
[2018-11-08] MEDS: SODIUM CHLORIDE FLUSH 0.9% 10 ML SYRINGE IVP PRN (08:57)
[2018-11-08] MEDS: LACTOBACILLUS RHAMNOSUS GG CAPSULE PO SCH (08:57)
[2018-11-08] MEDS: POLYETHYLENE GLYCOL 3350 17 GM PACKET PO SCH (08:58)
--- NOTE | 2018-11-08 10:42 | PROVIDER PROGRESS NOTE ---
Assessment/Plan - Problem List (1) HCAP (healthcare-associated pneumonia) Assessment/Plan: She has made no sputum for culture and blood cultures are neg to date. Will transition from empiric po Zithromax plus iv Ceftriaxone, to an oral agent after today. I have chosen an agent that the Citrobacter UTI is sensitive too, and would cover pulmonary organisms as well: Levofloxacin 750 mg daily. She should get Levofloxacin for 5 days, to complete a 7 day total course. Her oxygen demands continue. Will ask RT to titrate the supplemental oxygen down to off, hopefully soon. Continue good pulmonary toilet is ordered with Mucinex and Acapella valve. (2) Pleural effusion Assessment/Plan: Since the Echo showed a normal LVEF, this is most likely a para-pneumonic effusion. A 3-day course of scheduled NSAID was started yesterday, for anti-inflammation of the eand pain treatment. (3) Pleuritic chest pain Assessment/Plan: Both the Motrin and Tylenol or Tylenol with codeine are the plan for treatment of pain (4) UTI (urinary tract infection) Qualifiers: Urinary tract infection type: acute cystitis Hematuria presence: without hematuria Qualified Code(s): N30.00 - Acute cystitis without hematuria Assessment/Plan: The urine culture turned pos, antibiotics will be adjusted. (5) Citrobacter infection Assessment/Plan: As above in #1 and #4 (6) Status post cerebrovascular accident Assessment/Plan: She has chronic hemiplegia, dysarthria and is mostly bed bound. (7) Chronic a-fib Assessment/Plan: HR is under better control, with treatmen t of infection and stopping Amlodipine to double-up her B-queenie dose. She is on her home anticoagulation dose for stroke prevention.. (8) HTN (hypertension) Assessment/Plan: Stable on current meds; her Amlodipine was stopped but Metoprolol was increased. - Current Meds Current Meds: Current Medications Generic Name Dose Route Start Last Admin Trade Name Freq PRN Reason Stop Dose Admin Acetaminophen 650 mg 11/06/18 12:39 11/06/18 14:41 Tylenol PO 650 mg Q4HR PRN Administration Pain or Fever > 38C (100.4F) Hydrocodone Bitart/Acetaminophen 1 tab 11/06/18 12:39 11/07/18 17:50 [place] 5/325 PO 1 tab Q4HR PRN Administration Pain 5 to 7 Aspirin 81 mg 11/07/18 09:00 11/08/18 08:56 Ecotrin PO 81 mg DAILY FLO Administration Calcium Carbonate/Glycine 500 mg 11/07/18 09:00 11/08/18 08:57 Oysco-500 PO 500 mg DAILY FLO Administration Famotidine 20 mg 11/06/18 21:00 11/08/18 08:57 Pepcid PO 20 mg BID FLO Administration Fluoxetine HCl 20 mg 11/07/18 09:00 11/08/18 08:57 Prozac PO 20 mg DAILY FLO Administration Furosemide 20 mg 11/07/18 08:00 11/08/18 08:57 Lasix Inj 20mg Vial IVP 11/09/18 12:00 20 mg DAILY FLO Administration Guaifenesin 600 mg 11/07/18 21:00 11/08/18 08:56 Mucinex PO 600 mg BID FLO Administration Ibuprofen 600 mg 11/07/18 17:00 11/08/18 08:56 Motrin PO 11/11/18 13:00 600 mg TIDWM FLO Administration Lactobacillus Rhamnosus 1 cap 11/07/18 09:00 11/08/18 08:57 Culturelle PO 1 cap DAILY FLO Administration Metoprolol Succinate 25 mg 11/07/18 21:00 11/08/18 08:57 Toprol Xl PO 25 mg BID FLO Administration Multivitamins 1 tab 11/07/18 09:00 11/08/18 08:56 Theragran PO 1 tab DAILY FLO Administration Polyethylene Glycol 17 gm 11/07/18 09:00 11/08/18 08:58 Miralax PO 17 gm DAILY FLO Administration Rivaroxaban 20 mg 11/06/18 18:00 11/07/18 17:50 Xarelto PO 20 mg QDDINNER FLO Administration Sodium Chloride 10 ml 11/06/18 12:39 11/08/18 08:57 Normal Saline Flush 0.9% IVP 20 ml PRN PRN Administration NEEDED PER PROVIDER ORDERS Sodium Chloride 10 ml 11/06/18 17:00 11/08/18 08:57 Normal Saline Flush 0.9% IVP 10 ml 0100,0900,1700 FLO Administration - Lab Result Fish Bone Diagrams: 11/08/18 05:24 11/08/18 05:24 - Additional Planning My Orders: My Active Orders 11/07/18 15:57 Acapella (Flutter Valve Device [RC] .TID 11/07/18 16:31 Telemetry- [RC] Q4HR 11/07/18 17:00 Ibuprofen [Motrin] 600 mg PO TIDWM 11/07/18 21:00 Metoprolol Succinate [Toprol Xl] 25 mg PO BID guaiFENesin [Mucinex] 600 mg PO BID 11/09/18 05:00 BMP - BASIC METABOLIC PANEL [CHEM] DAILYLAB CBC - COMP BLD CT W/AUTO DIFF [HEME] DAILYLAB PT WITH INR [COAG] DAILYLAB 11/09/18 09:00 levoFLOXacin [Levaquin] 750 mg PO DAILY Subjective - Subjective Patient Reports: Feeling Better, Resting Comfortably Objective Vital Signs: Vital Signs - 24 hr 11/07/18 11/07/18 11/07/18 13:00 16:02 17:48 Temperature 36.4 C L 37 C Heart Rate [ 94 105 H Brachial] Respiratory 14 14 Rate Blood Pressure 109/61 122/69 [Left Brachial artery] O2 Saturation 91 L 93 97 11/07/18 11/07/18 11/08/18 17:53 20:23 00:59 Temperature 36.7 C 36.4 C L Heart Rate [ 96 106 H Brachial] Respiratory 16 20 Rate Blood Pressure 124/64 127/82 H [Left Brachial artery] O2 Saturation 96 93 94 11/08/18 11/08/18 04:27 07:37 Temperature 36.5 C 36.8 C Heart Rate [ 95 103 H Brachial] Respiratory 20 18 Rate Blood Pressure 128/69 120/78 [Left Brachial artery] O2 Saturation 92 93 Oxygen O2 Source [With Activity] Room air O2 Source Nasal cannula I&O (Last 24 Hrs): Intake and Output Totals x24h 11/06/18 11/07/18 11/08/18 23:59 23:59 23:59 Intake Total 1790 1020 460 Balance 1790 1020 460 General: Alert HEENT: Mucous membr. moist/pink Neck: Supple Neuro: Other (Dysarthria and weakness, is bed bound) Cardiovascular: No murmurs Respiratory: No respiratory distress, Other (Diminished breath sounds at both bases) Extremities: No edema - Results Results: Laboratory Results WBC 6.4 x10^3/uL (4.8-10.8) 11/08/18 05:24 RBC 4.08 10^6/uL (4.20-5.40) L 11/08/18 05:24 Hgb 11.7 g/dL (12.0-16.0) L 11/08/18 05:24 Hct 39.0 % (37.0-47.0) 11/08/18 05:24 MCV 95.6 fL (81.0-99.0) 11/08/18 05:24 MCH 28.7 pg (27.0-31.0) 11/08/18 05:24 MCHC 30.0 g/dL (32.0-36.0) L 11/08/18 05:24 RDW 14.5 % (12.0-15.0) 11/08/18 05:24 Plt Count 276 10^3/uL (130-450) 11/08/18 05:24 MPV 9.9 fL (7.9-10.8) 11/08/18 05:24 Neut # (Auto) 4.1 10^3/uL (1.5-6.6) 11/08/18 05:24 Lymph # (Auto) 1.0 10^3/uL (1.5-3.5) L 11/08/18 05:24 [place] # (Auto) 0.9 10^3/uL (0.0-1.0) 11/08/18 05:24 Eos # (Auto) 0.4 10^3/uL (0.0-0.7) 11/08/18 05:24 Baso # (Auto) 0.0 10^3/uL (0.0-0.1) 11/08/18 05:24 Absolute Nucleated RBC 0.00 x10^3/uL 11/08/18 05:24 Nucleated RBC % 0.0 /100WBC 11/08/18 05:24 PT 17.8 secs (9.9-12.6) H 11/08/18 05:24 INR 1.6 (0.8-1.2) H 11/08/18 05:24 Sodium 138 mmol/L (135-145) 11/08/18 05:24 Potassium 4.0 mmol/L (3.5-5.0) 11/08/18 05:24 Chloride 101 mmol/L (101-111) 11/08/18 05:24 Carbon Dioxide 28 mmol/L (21-32) 11/08/18 05:24 Anion Gap 9.0 (6-13) 11/08/18 05:24 BUN 12 mg/dL (6-20) 11/08/18 05:24 Creatinine 0.5 mg/dL (0.4-1.0) 11/08/18 05:24 Estimated GFR (MDRD) 118 (>89) 11/08/18 05:24 Glucose 102 mg/dL (70-100) H 11/08/18 05:24 Lactic Acid 0.6 mmol/L (0.5-2.2) 11/06/18 10:10 Calcium 8.7 mg/dL (8.5-10.3) 11/08/18 05:24 Total Bilirubin 0.6 mg/dL (0.2-1.0) 11/06/18 08:20 AST 22 IU/L (10-42) 11/06/18 08:20 ALT 23 IU/L (10-60) 11/06/18 08:20 Alkaline Phosphatase 79 IU/L (42-121) 11/06/18 08:20 Troponin I < 0.04 ng/mL (<0.49) 11/06/18 08:20 B-Natriuretic Peptide 621 pg/mL (5-100) H 11/07/18 05:18 Total Protein 7.8 g/dL (6.7-8.2) 11/06/18 08:20 Albumin 3.5 g/dL (3.2-5.5) 11/06/18 08:20 Globulin 4.3 g/dL (2.1-4.2) H 11/06/18 08:20 Albumin/Globulin Ratio 0.8 (1.0-2.2) L 11/06/18 08:20 Lipase 33 U/L (22-51) 11/06/18 08:20 TSH 5.33 uIU/mL (0.34-5.60) 11/07/18 05:18 Urine Color YELLOW 11/06/18 09:18 Urine Clarity SL. CLOUDY (CLEAR) 11/06/18 09:18 Urine pH 6.5 PH (5.0-7.5) 11/06/18 09:18 Ur Specific [place] 1.015 (1.002-1.030) 11/06/18 09:18 Urine Protein NEGATIVE mg/dL (NEGATIVE) 11/06/18 09:18 Urine Glucose (UA) NEGATIVE mg/dL (NEGATIVE) 11/06/18 09:18 Urine Ketones NEGATIVE mg/dL (NEGATIVE) 11/06/18 09:18 Urine Occult Blood TRACE-INTA (NEGATIVE) 11/06/18 09:18 Urine Nitrite POSITIVE (NEGATIVE) H 11/06/18 09:18 Urine Bilirubin NEGATIVE (NEGATIVE) 11/06/18 09:18 Urine Urobilinogen 0.2 (NORMAL) E.U./dL (NORMAL) 11/06/18 09:18 Ur Leukocyte Esterase MODERATE (NEGATIVE) H 11/06/18 09:18 Urine RBC 6-10 /HPF (0-5) H 11/06/18 09:18 Urine WBC >25 /HPF (0-5) H 11/06/18 09:18 Urine WBC Clumps PRESENT 11/06/18 09:18 Ur Squamous Epith Cells FEW Squamous (<= Few) 11/06/18 09:18 Urine Bacteria Moderate /HPF (None Seen) H 11/06/18 09:18 Ur Microscopic Review INDICATED 11/06/18 09:18 Urine Culture Comments INDICATED 11/06/18 09:18 - Procedures Procedures: Procedures REPOSITION R UP FEMUR WITH INTRAMED FIX, OPEN APPROACH (02/20/17)
[2018-11-08] MEDS: RIVAROXABAN 10 MG TABLET PO SCH (17:30)
[2018-11-09] MEDS: SODIUM CHLORIDE FLUSH 0.9% 10 ML SYRINGE IVP SCH ×2 (01:45→08:21)
[2018-11-09 05:06] LABS: BASOPHILS % (AUTO) 0.5 %; EOSINOPHILS # (AUTO) 0.5 10^3/uL (0.0-0.7); EOSINOPHILS % (AUTO) 7.4 %; HGB - HEMOGLOBIN 11.9 g/dL (12.0-16.0); LYMPHOCYTES # (AUTO) 1.1 10^3/uL (1.5-3.5); LYMPHOCYTES % (AUTO) 16.2 %; MEAN CORPUSCULAR HEMOGLOBIN 29.1 pg (27.0-31.0); MEAN CORPUSCULAR HGB CONC 30.6 g/dL (32.0-36.0); MEAN CORPUSCULAR VOLUME 95.1 fL (81.0-99.0); MEAN PLATELET VOLUME 9.9 fL (7.9-10.8); MONOCYTES # (AUTO) 0.9 10^3/uL (0.0-1.0); MONOCYTES % (AUTO) 14.1 %; NEUTROPHILS % (AUTO) 61.3 %; PLT - PLATELET COUNT 281 10^3/uL (130-450); RED BLOOD COUNT 4.09 10^6/uL (4.20-5.40); RED CELL DISTRIBUTION WIDTH 14.5 % (12.0-15.0); WHITE BLOOD COUNT 6.6 x10^3/uL (4.8-10.8)
[2018-11-09 05:14] LABS: INR 2.2 (0.8-1.2); PT - PROTHROMBIN TIME 25.2 secs (9.9-12.6)
[2018-11-09 05:20] LABS: CREATININE 0.6 mg/dL (0.4-1.0)
[2018-11-09 07:43] VITALS: BP 125/62
[2018-11-09] MEDS: POLYETHYLENE GLYCOL 3350 17 GM PACKET PO SCH (08:20)
[2018-11-09] MEDS: MULTIVITAMIN TABLET PO SCH (08:21)
[2018-11-09] MEDS: ASPIRIN EC 81 MG TABLET PO SCH (08:21)
[2018-11-09] MEDS: METOPROLOL SUCCINATE 25 MG TABLET PO SCH (08:21)
[2018-11-09] MEDS: IBUPROFEN 600 MG TABLET PO SCH (08:21)
[2018-11-09] MEDS: FUROSEMIDE 20 MG/2 ML VIAL IVP SCH (08:21)
[2018-11-09] MEDS: FAMOTIDINE 20 MG TABLET PO SCH (08:21)
[2018-11-09] MEDS: FLUoxetine 10 MG CAPSULE PO SCH (08:22)
[2018-11-09] MEDS: CALCIUM CARB (OYSTER SHELL) 500 MG TABLET PO SCH (08:22)
[2018-11-09] MEDS: guaiFENesin 600 MG TABLET PO SCH (08:22)
[2018-11-09] MEDS: LACTOBACILLUS RHAMNOSUS GG CAPSULE PO SCH (08:22)
[2018-11-09] MEDS ORDERED: levoFLOXacin 250 MG TABLET PO SCH (09:00)
--- NOTE | 2018-11-09 10:12 | Discharge Plan ---
"Discharge Plan for SNF / [facility] - Discharge Plan And Transition Orders Problem Reviewed?: Yes Disposition: 03 SNF DC/Xfer Condition: Stable Allergies and Adverse Reactions: Allergies Allergy/AdvReac Type Severity Reaction Status Date / Time No Known Drug Allergies Allergy Verified 02/02/18 14:29 Health Concerns: Chest pain was pleuritic from a health-care associated pneumonia with para- pneumonic effusion. The pneumonia was treated with antibiotics, and the pleural effusion and pain were treated with a short course of high dose NSAIDs. A UTI was also found and treated with antibiotics. Her Afib heart rate was elevated and was treated with an increase in her previous Metoprolol dose. Plan of Treatment: Finish several more days of oral antibiotics, with Lactobaccilus and Mucinex. Finish the high-dose Motrin treatment for 1 more day. Resume all previous medications and management. Care Goals: Return to previous Living facility, where the above will be done. Assessment: The patient is comfortable and agrees with the plan. - SNF / [facility] Transition Orders Admit to (Facility): [facility] Discharge Diagnosis: (1) HCAP (healthcare-associated pneumonia) (2) Pleural effusion (3) Pleuritic chest pain (4) Citrobacter UTI (5) Old cerebrovascular accident, with residual hemiplegia and dysarthria (6) Chronic a-fib (7) HTN (hypertension) Medicare Certification Statement: I certify that [facility] care is medically necessary on a continuing basis for any of the conditions for which she/he is receiving care during hospitalization. Notify PCP of admission and forward orders to primary provider for signature. Weight on admission and: Weekly Other Notification Orders: Call PCP immediately if patient develops dyspnea, chest pain/tightness or edema. House Bowel Program: Yes Additional Bowel Program Orders: If no BM after 2 days, nurse may give M.O.M. 30ml PO PRN and/or ducolax Supp 1 UT and/or UNA 250mg P.O., and/or senna 1-2 tabs PO. On day 3 nurse may give repeat above order until residents constipation is resolved. Annual Influenza Vaccine (between Dec 23 and July 22): Yes Two-step PPD per [facility] [id number] or approved exception documents: Yes Medication Orders: PLEASE REFER TO THE DISCHARGE MEDICATION LIST. Insulin Orders?: No - Medications New Prescriptions: guaiFENesin [Mucinex] 600 mg PO BID #8 tablet Ibuprofen [Motrin] 600 mg PO TIDWM 1 Days #3 tablet Lactobacillus Rhamnosus GG [Culturelle] 1 cap PO DAILY #4 capsule levoFLOXacin [Levaquin] 750 mg PO DAILY #4 tablet Metoprolol Succinate [Toprol Xl] 25 mg PO BID #60 tablet - Diet Type: Geriatric Texture: Regular Liquids: Thin May have monthly special meal: Yes - Therapies | Activity Rehabilitation Potential: Maintain present ADL Functional Activity: Activity as Tolerated Follow Up: See PCP in 7-10 days in hospital follow-up."
--- NOTE | 2018-11-15 14:32 | DISCHARGE SUMMARY ---
Discharge Summary Admit Date: 11/06/18 Discharge Date: 11/09/18 Discharging Provider: Dr Marce Bull Primary Care Provider: Dr Walt Olson Code Status: Attempt Resuscitation Condition at Discharge: Stable Discharge Disposition: SNF DC/Xfer Discharge Facility Name: [facility] - DIAGNOSES Admission Diagnoses: 1) Pleurisy 2) Pneumonia 3) UTI 4) Old stroke 5) Chronic Afib 6) HTN Discharge Diagnoses with Status of Each Condition: See below - HPI History of Present Illness: This is an 83 y/o white female with a history of chronic afib on Xarelto anticoagulation, HTN and prior stroke with expressive aphasia and right-sided hemiplegia, living at an Assisted Living Facility. She complained to the staff at [facility] that she was experiencing right-sided chest pain and was brought to the ER. Her work-up found her to have bilateral infitrates and a right-sided pleural effusion on CXR and a urinalysis showed a UTI. She was admitted for management. - HOSPITAL COURSE Hospital Course: (1) HCAP (healthcare-associated pneumonia) She made no sputum for culture and blood cultures that were drawn, were negative. She was treated with empiric po Zithromax plus iv Ceftriaxone. Prior to discharge she was transitioned to oral antibiotics to complete 5 more days of treatment for a planned 7 day course. Levofloxacin was chosen, since it would cover pulmonary organisms as well the Citrobacter which grew in her urine culture (see below). She required supplemental oxygen via nasal cannula, which was able to be weaned to off before discharge. Mucinex was ordered to help with expectoration. (2) Pleural effusion An Echo was done to check for systolic heart failure as the cause. The Echo showed a normal LVEF but found a trivial pericardial effusion. The right-sided pleural effusion was most likely a para-pneumonic effusion. A 3-day course of scheduled high-dose NSAID was ordered as an anti-inflammatory method to treat both pleural (and pericardial) effusions and to treat the pleuritic pain. (3) Pleuritic chest pain Both the right-sided pleural effusion and trivial pericardial effusion may have caused her inspiratory right-sided pain. The Motrin was started and her pain resolved. A short course was planned, in order to decrease the chance of gastric bleeding, since she was kept on Xarelto. (4) UTI (urinary tract infection) The urinalysis showed pyuria and bacteriuria from a catheterized specimen. She was started on empiric iv Ceftriaxone initially. The urine culture turned positive for Citrobacter. She was discharged on the oral Levofloxacin, as described above in #1. Lactobacillus was also ordered for bowel health while on antibiotics. (5) Citrobacter infection As above in #4 (6) Status-post cerebrovascular accident She has chronic right-sided hemiplegia, expressive aphasia and is mostly bed elzbieta nd. PT was not ordered, since she was at her baseline in motor function (pivots into a chair to sit upright). (7) Chronic a-fib Her admission heart rate was mildly elevated, which came under better control with treatment of the infection and also stopping Amlodipine to double-up her B- queenie dose. She was discharged with this change in medications. She was kept on her home Xarelto anticoagulation dose for stroke prevention.. (8) HTN (hypertension) BP was stable on current meds; her Amlodipine was stopped but Metoprolol was increased. - ALLERGIES Allergies/Adverse Reactions: Allergies Allergy/AdvReac Type Severity Reaction Status Date / Time No Known Drug Allergies Allergy Verified 02/02/18 14:29 - MEDICATIONS Home Medications: Ambulatory Orders Medication Instructions Recorded Confirmed Lisinopril 40 mg PO DAILY 06/23/14 11/06/18 Potassium Chloride 10 meq PO BID 06/23/14 11/07/18 Multivitamin [Theragran] 1 tab PO DAILY 02/20/17 11/07/18 Fluoxetine HCl 20 mg PO DAILY 09/02/17 11/06/18 Rivaroxaban [Xarelto] 20 mg PO QDDINNER 11/06/18 11/06/18 Simvastatin 40 mg PO QPM 11/06/18 11/06/18 Acetaminophen 650 mg PO Q6H PRN 11/07/18 11/07/18 Calcium Carbonate/Vitamin D3 1 tab PO DAILY 11/07/18 11/07/18 [Oyster Shell Calcium-Vit D Tab] Senna [Senokot] 8.6 mg PO DAILY 11/07/18 11/07/18 Ibuprofen [Motrin] 600 mg PO TIDWM 1 Days #3 tablet 11/09/18 Lactobacillus Rhamnosus GG 1 cap PO DAILY #4 capsule 11/09/18 [Culturelle] Metoprolol Succinate [Toprol Xl] 25 mg PO BID #60 tablet 11/09/18 guaiFENesin [Mucinex] 600 mg PO BID #8 tablet 11/09/18 levoFLOXacin [Levaquin] 750 mg PO DAILY #4 tablet 11/09/18 - PHYSICAL EXAM AT DISCHARGE General Appearance: positive: No acute distress Eyes Bilateral: positive: Normal inspection Neck: positive: Nml inspection, No JVD Respiratory: positive: No respiratory distress, Other (Diminished breath sounds at bases, no wheezing or rales) Cardiovascular: positive: No murmur, Other (Irreg irreg) Abdomen: positive: Non-tender, No distention Extremities: positive: No pedal edema Neurologic/Psychiatric: positive: Slurred/abnml speech, Other (Muscle weakness of the right arm and right leg) - LABS Result Diagrams: 11/09/18 04:33 11/09/18 04:33 - DIAGNOSTIC IMAGING Diagnostic Imaging Results: Final report reviewed - FOLLOW UP Follow Up: See PCP in 7-10 days in hospital follow-up.
== END 2018-11-09 12:02 | DRG 194 ==
LOC: EDUNIT# → ED 07:59 → MS2 12:39 → OBSVTOIN 11-07 15:37
PROVIDERS: ADMIT Internal Medicine; ATTEND Internal Medicine
DX: J18.1 Lobar pneumonia, unspecified organism (principal); I69.951 Hemiplegia and hemiparesis following unspecified cerebrovascular disease affecting right dominant side; J90 Pleural effusion, not elsewhere classified; I31.3 Pericardial effusion (noninflammatory); R07.89 Other chest pain; R07.81 Pleurodynia; N30.00 Acute cystitis without hematuria; B96.89 Other specified bacterial agents as the cause of diseases classified elsewhere; I69.922 Dysarthria following unspecified cerebrovascular disease; R32 Unspecified urinary incontinence; H91.90 Unspecified hearing loss, unspecified ear; Y95 Nosocomial condition; I48.2 Chronic atrial fibrillation; I10 Essential (primary) hypertension; R79.89 Other specified abnormal findings of blood chemistry; M79.89 Other specified soft tissue disorders; I69.920 Aphasia following unspecified cerebrovascular disease; I69.911 Memory deficit following unspecified cerebrovascular disease; I25.10 Atherosclerotic heart disease of native coronary artery without angina pectoris; E78.5 Hyperlipidemia, unspecified; Z79.01 Long term (current) use of anticoagulants; Z79.82 Long term (current) use of aspirin; Z79.899 Other long term (current) drug therapy; Z74.01 Bed confinement status
CPT/HCPCS: 36415; 51701; 71046; 71100; 80048; 80053; 81001; 83605; 83690; 83880; 84443; 84484; 85025; 85610; 87040; 87077; 87086; 87181; 93005; 93306; 96361; 96365; 96366; 96367; 96368; 96375; 99284; 99285; A9270; G0378; 81003

== ENCOUNTER 2019-09-19 07:40 | Outpatient (CLI) | payer MEDICARE, OTHER | END 2019-09-19 07:41 | disposition short-term general hospital (02) | LOC: EMS 07:40 | PROVIDERS: ATTEND Surgery | DX: S09.90XA Unspecified injury of head, initial encounter (principal); W19.XXXA Unspecified fall, initial encounter; Z91.81 History of falling; Y92.129 Unspecified place in nursing home as the place of occurrence of the external cause | CPT/HCPCS: A0425; A0427 ==

== ENCOUNTER 2019-09-19 08:04 | Emergency (ER) | payer MEDICARE, OTHER ==
[2019-09-19 08:29] LABS: BASOPHILS % (AUTO) 0.2 %; EOSINOPHILS # (AUTO) 0.3 10^3/uL (0.0-0.7); EOSINOPHILS % (AUTO) 4.2 %; HGB - HEMOGLOBIN 14.3 g/dL (12.0-16.0); LYMPHOCYTES # (AUTO) 1.6 10^3/uL (1.5-3.5); LYMPHOCYTES % (AUTO) 19.4 %; MEAN CORPUSCULAR HGB CONC 30.9 g/dL (32.0-36.0); MEAN CORPUSCULAR VOLUME 97.3 fL (81.0-99.0); MEAN PLATELET VOLUME 10.7 fL (7.9-10.8); MONOCYTES # (AUTO) 0.8 10^3/uL (0.0-1.0); MONOCYTES % (AUTO) 9.5 %; NEUTROPHILS # (AUTO) 5.4 10^3/uL (1.5-6.6); NEUTROPHILS % (AUTO) 66.5 %; PLT - PLATELET COUNT 208 10^3/uL (130-450); RED BLOOD COUNT 4.76 10^6/uL (4.20-5.40); RED CELL DISTRIBUTION WIDTH 15.9 % (12.0-15.0); WHITE BLOOD COUNT 8.2 x10^3/uL (4.8-10.8)
[2019-09-19 08:39] LABS: ALBUMIN/GLOBULIN RATIO 1.1 (1.0-2.2); BILIRUBIN,TOTAL 1.2 mg/dL (0.2-1.0); CALCIUM 9.3 mg/dL (8.5-10.3); CREATININE 0.8 mg/dL (0.4-1.0); TOTAL PROTEIN 7.8 g/dL (6.7-8.2)
[2019-09-19 09:22] LABS: BILIRUBIN,URINE NEGATIVE (NEGATIVE); GLUCOSE, URINE (UA) NEGATIVE (NEGATIVE); KETONES,URINE (UA) NEGATIVE (NEGATIVE); LEUKOCYTE ESTERASE, URINE LARGE (NEGATIVE); NITRITE,URINE NEGATIVE (NEGATIVE); OCCULT BLOOD,URINE TRACE-INTA (NEGATIVE); PROTEIN,URINE 30 mg/dL (NEGATIVE); UROBILINOGEN,URINE 0.2 (NORMAL) E.U./dL (NORMAL)
[2019-09-19 09:25] LABS: CLARITY,URINE CLOUDY (CLEAR); RBC,URINE 0-5 /HPF (0-5)
[2019-09-19 09:26] LABS: BACTERIA,URINE Few /HPF (None Seen); SQUAMOUS EPITHELIAL CELL,UR FEW Squamous (<= Few)
--- NOTE | 2019-09-19 09:47 | CT Report ---
Reason: polytrauma, critical, head and neck Procedure Date: 09/19/2019 Accession Number: [id number] / [id number] Procedure: CT - CERVICAL SPINE WO CPT Code: Final Report FULL RESULT: EXAM: CT CERVICAL SPINE WITHOUT IV CONTRAST DATE: 09/19/2019 09:03 AM. HISTORY: Polytrauma. Neck injury. COMPARISONS: Cervical spine CT done 02/20/2017. TECHNIQUE: Thin-section axial images were acquired of the cervical spine without contrast. Post-processing: Coronal and sagittal reformats. Other: None. In accordance with CT protocol optimization, one or more of the following dose reduction techniques were utilized for this exam: automated exposure control, adjustment of mA and/or KV based on patient size, or use of iterative reconstructive technique. FINDINGS: Alignment: 2 mm degenerative retrolisthesis of C4 on C5, and mild levo convex cervical scoliosis, are unchanged. Bones: No fracture or bone lesion. Disks: Moderate narrowing at C4-C5 and C5-C6 and small vertebral body osteophytes. Facets: Normal alignment. Neural Foramina: Mild narrowing at C4-C5 and C5-C6 by uncinate joint osteophytes. Other: Ectatic left vertebral artery on the left at C5, is unchanged. Normal prevertebral soft tissues. Apical pleural calcifications and left apical punctate calcified granulomas are unchanged. Small right sphenoid sinus retention cyst again demonstrated. 1 cm exophytic posterior left thyroid nodule again demonstrated, unchanged. No further imaging follow-up is necessary. IMPRESSION: No acute abnormality. Multilevel degenerative disk disease, spondylosis, and uncinate joint degenerative disease. Other chronic findings as described in the report, unchanged from 02/20/2017. RADIA
--- NOTE | 2019-09-19 09:48 | CT Report ---
Reason: polytrauma, head and neck Procedure Date: 09/19/2019 Accession Number: [id number] / [id number] Procedure: CT - HEAD WO CPT Code: Final Report FULL RESULT: EXAM: CT HEAD EXAM DATE: 09/19/2019 09:03 AM. CLINICAL HISTORY: Polytrauma, head and neck. COMPARISON: CERVICAL SPINE W/O 02/20/2017 12:08 PM HEAD W/O 02/20/2017 12:08 PM. TECHNIQUE: Multiaxial CT images were obtained from the foramen magnum to the vertex. Reformats: Sagittal and coronal. IV contrast: None. In accordance with CT protocol optimization, one or more of the following dose reduction techniques were utilized for this exam: automated exposure control, adjustment of mA and/or KV based on patient size, or use of iterative reconstructive technique. FINDINGS: Parenchyma: No intraparenchymal hemorrhage. No evidence of mass, midline shift, or CT findings of acute infarction. Ford-white differentiation is distinct. Diffuse chronic microangiopathic white matter changes are evident. Stable physiologic calcifications in both basal ganglia are noted. Stable large areas of encephalomalacia in the left frontal, left temporal and left occipital lobes. Extraaxial Spaces: Normal for age. No subdural or epidural collections identified. Ventricles: The ventricles and cortical sulci are enlarged, consistent with age-related tissue loss. Sinuses and orbits: Imaged paranasal sinuses, orbits, and mastoids show no significant abnormality. Bones: No evidence of fracture or calvarial defect. Other: None. IMPRESSION: 1. Generalized age-related cortical atrophic changes without evidence of acute intracranial abnormality. 2. Stable encephalomalacia in the left frontal, temporal and occipital lobes. RADIA
--- NOTE | 2019-09-19 09:53 | ED Physician Documentation ---
PD HPI HEAD INJURY - Stated complaint Stated Complaint: FALL - Chief complaint Chief Complaint: Trauma Hd/Nk - History obtained from History obtained from: Patient, EMS - History of Present Illness Mechanism of head injury: Fell Where head injury occurred: Home Timing - onset: Today Location of injury: Back Quality of pain: No: Pain Associated symptoms: Other (unkown) Symptoms improve with: Rest Contributing factors: Anticoagulated Similar symptoms before: Has not had sx before Recently seen: Not recently seen - Additional information Additional information: 84-year-old female on Eliquis has had a fall today in her room at [facility] and she is brought to the emergency department for evaluation.The patient has advanced dementia and is of no help for history. Review of Systems Unable to obtain: Dementia PD PAST MEDICAL HISTORY - Past Medical History Past Medical History: Yes Cardiovascular: Hypertension, High cholesterol, Coronary artery disease, Atrial fibrillation Neuro: CVA : Incontinence HEENT: Chronic hearing loss Psych: None Musculoskeletal: Hemiplegia Derm: None - Past Surgical History Past Surgical History: No Ortho: Other Cardiovascular: Coronary stent - Present Medications Home Medications: Ambulatory Orders Medication Instructions Recorded Confirmed lisinopriL [Lisinopril] 40 mg PO DAILY 06/23/14 09/19/19 Multivitamin [Theragran] 1 tab PO DAILY 02/20/17 09/19/19 Fluoxetine HCl 20 mg PO DAILY 09/02/17 09/19/19 Rivaroxaban [Xarelto] 20 mg PO QDDINNER 11/06/18 09/19/19 Simvastatin 40 mg PO QPM 11/06/18 09/19/19 Acetaminophen 650 mg PO Q6H PRN 11/07/18 09/19/19 Calcium Carbonate/Vitamin D3 1 tab PO DAILY 11/07/18 09/19/19 [Oyster Shell Calcium-Vit D Tab] Senna [Senokot] 8.6 mg PO DAILY 11/07/18 09/19/19 Ibuprofen [Motrin] 600 mg PO TIDWM 1 Days #3 tablet 11/09/18 09/19/19 Lactobacillus Rhamnosus GG 1 cap PO DAILY #4 capsule 11/09/18 09/19/19 [Culturelle] Metoprolol Succinate [Toprol Xl] 25 mg PO BID #60 tablet 11/09/18 09/19/19 Nitrofurantoin Monohyd/M-Cryst 100 mg PO BID #14 capsule 09/19/19 [Macrobid 100 mg Capsule] - Allergies Allergies/Adverse Reactions: Allergies Allergy/AdvReac Type Severity Reaction Status Date / Time No Known Drug Allergies Allergy Verified 09/19/19 08:15 - Social History Does the pt smoke?: No Smoking Status: Never smoker Does the pt drink ETOH?: No Does the pt have substance abuse?: No - Immunizations Immunizations are current?: Yes - POLST Patient has POLST: Yes POLST Status: Full Code PD ED PE NORMAL - Vitals Vital signs reviewed: Yes (Tachycardic hypertensive and hypoxic) - General General: No acute distress, Well developed/nourished, Other (The patient is oriented to the hospital only) - HEENT HEENT: Atraumatic, PERRL, EOMI, Other (The head is palpated deeply I do not find any area of tenderness or hematoma.) - Neck Neck: Supple, no meningeal sign, Other (Mild mid cervical spine bony tenderness) - Cardiac Cardiac: No murmur, Other - Respiratory Respiratory: No respiratory distress, Clear bilaterally - Abdomen Abdomen: Soft, Non tender - Back Back: No CVA TTP, No spinal TTP - Derm Derm: Normal color, Warm and dry, No rash - Extremities Extremities: No deformity, No edema - Neuro Neuro: Other Eye Opening: Spontaneous (There is a right sided deficit pre-existing) Motor: Obeys Commands Verbal: Confused GCS Score: 14 - Psych Psych: Normal mood, Normal affect Results - Vitals Vitals: Vital Signs - 24 hr 09/19/19 09/19/19 09/19/19 08:07 08:15 09:12 Temperature 36.7 C Heart Rate 110 H 108 H 107 H Respiratory 20 15 19 Rate Blood Pressure 194/123 H 201/132 H O2 Saturation 88 L 90 L 97 09/19/19 10:02 Temperature Heart Rate 107 H Respiratory 22 Rate Blood Pressure 173/122 H O2 Saturation 90 L Oxygen O2 Source [] Room air O2 Source Room air - Labs Labs: Laboratory Tests 09/19/19 09/19/19 09/19/19 08:15 08:15 09:05 WBC 8.2 RBC 4.76 Hgb 14.3 Hct 46.3 MCV 97.3 MCH 30.0 MCHC 30.9 L RDW 15.9 H Plt Count 208 MPV 10.7 Neut # (Auto) 5.4 Lymph # (Auto) 1.6 Ceiba # (Auto) 0.8 Eos # (Auto) 0.3 Baso # (Auto) 0.0 Absolute Nucleated RBC 0.00 Nucleated RBC % 0.0 Sodium 141 Potassium 4.1 Chloride 105 Carbon Dioxide 26 Anion Gap 10.0 BUN 17 Creatinine 0.8 Estimated GFR (MDRD) 69 L Glucose 103 H Calcium 9.3 Total Bilirubin 1.2 H AST 22 ALT 17 Alkaline Phosphatase 88 Total Protein 7.8 Albumin 4.0 Globulin 3.8 Albumin/Globulin Ratio 1.1 Lipase 30 Urine Color YELLOW Urine Clarity CLOUDY Urine pH 7.0 Ur Specific [place] 1.020 Urine Protein 30 H Urine Glucose (UA) NEGATIVE Urine Ketones NEGATIVE Urine Occult Blood TRACE-INTA Urine Nitrite NEGATIVE Urine Bilirubin NEGATIVE Urine Urobilinogen 0.2 (NORMAL) Ur Leukocyte Esterase LARGE H Urine RBC 0-5 Urine WBC >25 H Ur Squamous Epith Cells FEW Squamous Urine Bacteria Few Ur Microscopic Review INDICATED Urine Culture Comments INDICATED - Rads (name of study) CT head Radiology: Prelim report reviewed (Impression: 1. Generalized age-related cortical atrophic changes without evidence of acute intracranial abnormality. 2. Stable encephalomalacia in the left frontal, temporal and occipital lobes.), EMP read indepedently, See rad report CT cervical spine Radiology: Prelim report reviewed (Impression: No acute abnormality. Multi- level degenerative disc disease, spondylolysis, and uncinate joint degenerative disease. Other chronic findings as described in the report, unchanged from 02/20/2017.), EMP read indepedently, See rad report Procedures - IVC sono (time) 1000 Bedside IVC sono: IVC measures (cm) (1.50), [employer] PD MEDICAL DECISION MAKING - ED course Complexity details: reviewed old records, reviewed results, re-evaluated patient, considered differential, d/w patient ED course: 84-year-old female with advanced dementia and a right sided deficit from prior CVA he is on Eliquis and she has had a fall. Is uncertain whether she hit her head. I am not able to palpate any injury. CT scan does not demonstrate any intracranial hemorrhage. There is extensive encephalomalacia from her prior CVA. The patient is found to have urinary tract infection on evaluation of the urine and she is administered a gram of Rocephin IM we will place her on some Macrobid and return her to her domicile. Departure - Departure Disposition: 01 Home, Self Care Clinical Impression: UTI (urinary tract infection) Qualifiers: Urinary tract infection type: acute cystitis Hematuria presence: without hematuria Qualified Code(s): N30.00 - Acute cystitis without hematuria Accidental fall Qualifiers: Encounter type: initial encounter Qualified Code(s): W19.XXXA - Unspecified fall, initial encounter Condition: Stable Instructions: ED UTI Cystitis Female, ED Mechanical Fall, ED Prevention Fall Follow-Up: Walt Olson MD [Primary Care Provider] - Prescriptions: Nitrofurantoin Monohyd/M-Cryst [Macrobid 100 mg Capsule] 100 mg PO BID #14 capsule
[2019-09-19] MEDS ORDERED: cefTRIAXone 1 GM VIAL IM STA (10:13)
[2019-09-19] MEDS ORDERED: LIDOCAINE 1% 2 ML VIAL MC ONE (10:13)
[2019-09-19 11:52] VITALS: BP 166/109
== END 2019-09-19 12:11 | disposition home or self-care (01) ==
LOC: EDUNIT# → ED 08:04
DX: Z04.3 Encounter for examination and observation following other accident (principal); N30.00 Acute cystitis without hematuria; I10 Essential (primary) hypertension; I69.398 Other sequelae of cerebral infarction; F03.90 Unspecified dementia, unspecified severity, without behavioral disturbance, psychotic disturbance, mood disturbance, and anxiety; Z79.01 Long term (current) use of anticoagulants
CPT/HCPCS: 36415; 70450; 72125; 80053; 81001; 81003; 83690; 85025; 87077; 87086; 96372; 99281; 99284

== ENCOUNTER 2019-10-30 19:01 | Outpatient (CLI) | payer MEDICARE, OTHER | END 2019-10-30 23:59 | disposition EMS.NT | LOC: EMS 19:01 | PROVIDERS: ATTEND Surgery | DX: Z03.89 Encounter for observation for other suspected diseases and conditions ruled out (principal) ==

== ENCOUNTER 2019-11-01 10:07 | Outpatient (CLI) | payer MEDICARE, OTHER | END 2019-11-01 10:08 | disposition critical access hospital (66) | LOC: EMS 10:07 | PROVIDERS: ATTEND Surgery | DX: R07.81 Pleurodynia (principal) | CPT/HCPCS: A0425; A0429 ==

== ENCOUNTER 2019-11-01 10:36 | Emergency (ER) | payer MEDICARE, OTHER ==
--- NOTE | 2019-11-01 10:43 | ED Physician Documentation ---
PD HPI Fall - Stated complaint Stated Complaint: RIB PX - History obtained from History obtained from: Patient, EMS - History of Present Illness Mechanism of injury: Unknown Fall distance: Standing position Where injury occurred: Home Timing - onset: How many days ago (2) Injury(ies) location: Chest Quality of pain: Pain Associated symptoms: No: Neck pain, Weakness, Paresthesias, Dyspnea Symptoms improve with: Rest Worsens with: Movement, Palpation Contributing factors: Anticoagulated Similar symptoms before: Diagnosis (rib contusion) Recently seen: Emergency Dept (Seen 6 wks ago with fall and UTI) - Additional information Additional information: 84 y/o female on xarolto has had a fall injuring her left ribs 2 days ago. Her pain is worse today and she is brought to the ED for evaluation. The patient indicates she does not otherwise feel ill. Review of Systems Constitutional: denies: Fever Eyes: denies: Decreased vision Ears: denies: Ear pain Nose: denies: Congestion Throat: denies: Sore throat Cardiac: reports: Chest pain / pressure. denies: Palpitations, Pedal edema, Calf pain Respiratory: denies: Dyspnea, Cough GI: denies: Vomiting PD PAST MEDICAL HISTORY - Past Medical History Cardiovascular: Hypertension, High cholesterol, Coronary artery disease, Atrial fibrillation Neuro: CVA : Incontinence HEENT: Chronic hearing loss Psych: None Musculoskeletal: Hemiplegia Derm: None - Past Surgical History Past Surgical History: No Ortho: Other Cardiovascular: Coronary stent - Present Medications Home Medications: Ambulatory Orders Medication Instructions Recorded Confirmed lisinopriL [Lisinopril] 40 mg PO DAILY 06/23/14 09/19/19 Multivitamin [Theragran] 1 tab PO DAILY 02/20/17 09/19/19 Fluoxetine HCl 20 mg PO DAILY 09/02/17 09/19/19 Rivaroxaban [Xarelto] 20 mg PO QDDINNER 11/06/18 09/19/19 Simvastatin 40 mg PO QPM 11/06/18 09/19/19 Acetaminophen 650 mg PO Q6H PRN 11/07/18 09/19/19 Calcium Carbonate/Vitamin D3 1 tab PO DAILY 11/07/18 09/19/19 [Oyster Shell Calcium-Vit D Tab] Senna [Senokot] 8.6 mg PO DAILY 11/07/18 09/19/19 Ibuprofen [Motrin] 600 mg PO TIDWM 1 Days #3 tablet 11/09/18 09/19/19 Lactobacillus Rhamnosus GG 1 cap PO DAILY #4 capsule 11/09/18 09/19/19 [Culturelle] Metoprolol Succinate [Toprol Xl] 25 mg PO BID #60 tablet 11/09/18 09/19/19 - Allergies Allergies/Adverse Reactions: Allergies Allergy/AdvReac Type Severity Reaction Status Date / Time No Known Drug Allergies Allergy Verified 09/19/19 08:15 - Social History Does the pt smoke?: No Smoking Status: Never smoker Does the pt drink ETOH?: No Does the pt have substance abuse?: No - Immunizations Immunizations are current?: Yes - POLST Patient has POLST: Yes POLST Status: Full Code PD ED PE NORMAL - Vitals Vital signs reviewed: Yes (hyeprtensive ) - General General: No acute distress, Well developed/nourished, Other (84 y/o female with right hemiparesis and dysarthria is able to provide adequate history. ) - HEENT HEENT: Atraumatic, PERRL, EOMI - Neck Neck: Supple, no meningeal sign, No bony TTP - Cardiac Cardiac: RRR, No murmur - Respiratory Respiratory: No respiratory distress, Clear bilaterally - Abdomen Abdomen: Soft, Non tender - Back Back: No CVA TTP, No spinal TTP - Derm Derm: Normal color, Warm and dry, No rash - Extremities Extremities: No deformity, No edema - Neuro Neuro: Other (speech is dysarthric content is good. There is right rm-parasis present. ) Eye Opening: Spontaneous Motor: Obeys Commands Verbal: Oriented GCS Score: 15 - Psych Psych: Normal mood, Normal affect Results - Vitals Vitals: Vital Signs - 24 hr 11/01/19 11/01/19 10:56 12:56 Temperature 36.7 C Heart Rate 91 91 Respiratory 22 18 Rate Blood Pressure 175/99 H 161/96 H O2 Saturation 94 99 Oxygen O2 Source [] Room air O2 Source Room air - EKG (time done) 1050 Rate: Rate (enter#) (90) Rhythm: Atrial fibrillation Compare to prior EKG: Changed from prior EKG (SPT 11-07-2018 voltage has improved) Computer interpretation: Agree with computer - Labs Labs: Laboratory Tests 11/01/19 11/01/19 11/01/19 11:56 12:44 12:44 WBC 7.1 RBC 4.39 Hgb 13.7 Hct 43.8 MCV 99.8 H MCH 31.2 H MCHC 31.3 L RDW 15.2 H Plt Count 183 MPV 11.2 H Neut # (Auto) 4.5 Lymph # (Auto) 1.3 L [place] # (Auto) 0.8 Eos # (Auto) 0.4 Baso # (Auto) 0.0 Absolute Nucleated RBC 0.00 Nucleated RBC % 0.0 Sodium 137 Potassium 4.1 Chloride 103 Carbon Dioxide 27 Anion Gap 7.0 BUN 18 Creatinine 0.7 Estimated GFR (MDRD) 80 L Glucose 104 H Calcium 9.0 Total Bilirubin 0.8 AST 24 ALT 14 Alkaline Phosphatase 71 Total Protein 7.1 Albumin 3.6 Globulin 3.5 Albumin/Globulin Ratio 1.0 Lipase 30 Urine Color YELLOW Urine Clarity CLEAR Urine pH 8.0 H Ur Specific [place] 1.015 Urine Protein NEGATIVE Urine Glucose (UA) NEGATIVE Urine Ketones NEGATIVE Urine Occult Blood NEGATIVE Urine Nitrite NEGATIVE Urine Bilirubin NEGATIVE Urine Urobilinogen 0.2 (NORMAL) Ur Leukocyte Esterase NEGATIVE Ur Microscopic Review NOT INDICATED Urine Culture Comments NOT INDICATED - Rads (name of study) ribs Radiology: Prelim report reviewed (Impression: 1. No definite displaced rib left rib fracture. No gross acute cardial pulmonary pathology. Cardiomegaly.), EMP read indepedently, See rad report Procedures - IVC sono (time) 1205 Bedside IVC sono: IVC measures (cm) (1.12), IVC collapsed c insp (cm) (complete ), Dehydration (est 1+ liter deficit) PD MEDICAL DECISION MAKING - ED course Complexity details: reviewed old records, reviewed results, re-evaluated patient, considered differential, d/w patient ED course: She is tender over ribs on the left lower chest and has a negative bedside ultrasound exam of the spleno-renal recess. She is diagnosed with a rib contusion and given tylenol for pain. Her urine, electrolytes and blood counts are checked and are unremarkable. She is found to be dehydrated on interrogation of the IVC and she is administered IV saline. She has improvement at discharge. Departure - Departure Disposition: 01 Home, Self Care Clinical Impression: Dehydration Contusion of rib on left side Qualifiers: Encounter type: initial encounter Qualified Code(s): S20.212A - Contusion of left front wall of thorax, initial encounter Condition: Stable Instructions: ED Dehydration, ED Contusion Vs Minor Fx Rib Follow-Up: Ru Carr MD [Primary Care Provider] - Discharge Date/Time: 11/01/19 15:10
[2019-11-01] MEDS ORDERED: ACETAMINOPHEN 325 MG TABLET PO STA (12:01)
--- NOTE | 2019-11-01 12:05 | XRAY Report ---
PROCEDURE: Ribs w/PA Chest LT INDICATIONS: fall left rib pain TECHNIQUE: 4 views of the left ribs were acquired, along with a single view chest. COMPARISON: 11/06/2018, 02/02/2018. FINDINGS: Surgical changes and devices: None. Bones and chest wall: No fractures or dislocations. No suspicious bony lesions. Overlying soft tis sues appear unremarkable. Lungs and pleura: No pleural effusions or pneumothorax. Lungs appear clear. Mediastinum: Mediastinal contours appear normal. Heart size is enlarged. IMPRESSION: 1. No definite displaced left rib fracture. 2. No gross acute cardiopulmonary pathology. Cardiomegaly. Reviewed by: Chaka Chamberlain MD on 11/01/2019 12:03 PM PDT Approved by: Chaka Chamberlain MD on 11/01/2019 12:03 PM PDT Station ID: [id number]
[2019-11-01 12:08] LABS: BILIRUBIN,URINE NEGATIVE (NEGATIVE); GLUCOSE, URINE (UA) NEGATIVE (NEGATIVE); KETONES,URINE (UA) NEGATIVE (NEGATIVE); LEUKOCYTE ESTERASE, URINE NEGATIVE (NEGATIVE); NITRITE,URINE NEGATIVE (NEGATIVE); OCCULT BLOOD,URINE NEGATIVE (NEGATIVE); PROTEIN,URINE NEGATIVE (NEGATIVE); UROBILINOGEN,URINE 0.2 (NORMAL) E.U./dL (NORMAL)
[2019-11-01 12:09] LABS: CLARITY,URINE CLEAR (CLEAR)
[2019-11-01] MEDS ORDERED: SODIUM CHLORIDE 0.9% 1,000 ML IV STA (12:21)
[2019-11-01 12:47] LABS: BASOPHILS % (AUTO) 0.4 %; EOSINOPHILS # (AUTO) 0.4 10^3/uL (0.0-0.7); EOSINOPHILS % (AUTO) 5.4 %; HGB - HEMOGLOBIN 13.7 g/dL (12.0-16.0); LYMPHOCYTES # (AUTO) 1.3 10^3/uL (1.5-3.5); LYMPHOCYTES % (AUTO) 18.9 %; MEAN CORPUSCULAR HEMOGLOBIN 31.2 pg (27.0-31.0); MEAN CORPUSCULAR HGB CONC 31.3 g/dL (32.0-36.0); MEAN CORPUSCULAR VOLUME 99.8 fL (81.0-99.0); MEAN PLATELET VOLUME 11.2 fL (7.9-10.8); MONOCYTES # (AUTO) 0.8 10^3/uL (0.0-1.0); MONOCYTES % (AUTO) 11.6 %; NEUTROPHILS # (AUTO) 4.5 10^3/uL (1.5-6.6); NEUTROPHILS % (AUTO) 63.6 %; PLT - PLATELET COUNT 183 10^3/uL (130-450); RED BLOOD COUNT 4.39 10^6/uL (4.20-5.40); RED CELL DISTRIBUTION WIDTH 15.2 % (12.0-15.0); WHITE BLOOD COUNT 7.1 x10^3/uL (4.8-10.8)
[2019-11-01 12:57] VITALS: BP 161/96
[2019-11-01 12:59] LABS: ALBUMIN 3.6 g/dL (3.2-5.5); BILIRUBIN,TOTAL 0.8 mg/dL (0.2-1.0); CREATININE 0.7 mg/dL (0.4-1.0); TOTAL PROTEIN 7.1 g/dL (6.7-8.2)
== END 2019-11-01 15:10 | disposition home or self-care (01) ==
LOC: EDUNIT# → ED 10:36
DX: S20.212A Contusion of left front wall of thorax, initial encounter (principal); W18.30XA Fall on same level, unspecified, initial encounter; Y92.009 Unspecified place in unspecified non-institutional (private) residence as the place of occurrence of the external cause; E86.0 Dehydration; I48.91 Unspecified atrial fibrillation; Z79.01 Long term (current) use of anticoagulants; I10 Essential (primary) hypertension; I69.351 Hemiplegia and hemiparesis following cerebral infarction affecting right dominant side; I69.322 Dysarthria following cerebral infarction
CPT/HCPCS: 51701; 71101; 80053; 81003; 83690; 85025; 93005; 96360; 96361; 99284; A9270; 81001; 87086

== ENCOUNTER 2019-11-18 00:04 | Outpatient (CLI) | payer MEDICARE, OTHER | END 2019-11-18 00:05 | disposition critical access hospital (66) | LOC: EMS 00:04 | PROVIDERS: ATTEND Surgery | DX: S09.90XA Unspecified injury of head, initial encounter (principal); W19.XXXA Unspecified fall, initial encounter; Y92.099 Unspecified place in other non-institutional residence as the place of occurrence of the external cause ==

== ENCOUNTER 2019-11-18 04:56 | Outpatient (CLI) | payer MEDICARE, OTHER | END 2019-11-18 04:57 | disposition home or self-care (01) | LOC: EMS 04:56 | PROVIDERS: ATTEND Surgery | DX: S09.90XA Unspecified injury of head, initial encounter (principal); W18.30XA Fall on same level, unspecified, initial encounter; Y92.099 Unspecified place in other non-institutional residence as the place of occurrence of the external cause; R41.0 Disorientation, unspecified ==

== ENCOUNTER 2019-11-18 15:54 | Outpatient (CLI) | payer MEDICARE, OTHER | END 2019-11-18 15:55 | disposition critical access hospital (66) | LOC: EMS 15:54 | PROVIDERS: ATTEND Surgery | DX: R41.82 Altered mental status, unspecified (principal); M25.511 Pain in right shoulder | CPT/HCPCS: A0425; A0427; A0428; A0429 ==

== ENCOUNTER 2019-11-18 20:06 | Outpatient (CLI) | payer MEDICARE, OTHER | END 2019-11-18 20:07 | disposition home or self-care (01) | LOC: EMS 20:06 | PROVIDERS: ATTEND Surgery | DX: R41.0 Disorientation, unspecified (principal); N39.0 Urinary tract infection, site not specified; I69.351 Hemiplegia and hemiparesis following cerebral infarction affecting right dominant side | CPT/HCPCS: A0425; A0428 ==

== ENCOUNTER 2020-10-26 07:48 | Outpatient (CLI) | payer MEDICARE, OTHER | END 2020-10-26 07:49 | disposition critical access hospital (66) | LOC: EMS 07:48 | DX: S40.011A Contusion of right shoulder, initial encounter (principal); S30.0XXA Contusion of lower back and pelvis, initial encounter; S70.11XA Contusion of right thigh, initial encounter; R41.82 Altered mental status, unspecified; W19.XXXA Unspecified fall, initial encounter; Y92.192 Bathroom in other specified residential institution as the place of occurrence of the external cause | CPT/HCPCS: A0425; A0429 ==

== ENCOUNTER 2020-10-26 08:13 | Emergency (ER) | payer MEDICARE, OTHER ==
[2020-10-26] MEDS ORDERED: SODIUM CHLORIDE 0.9% 1,000 ML IV STA (08:28)
--- NOTE | 2020-10-26 08:32 | ED Physician Documentation ---
History of Present Illness - Stated complaint Stated Complaint: GLF - History obtained from History obtained from: EMS - Additonal information Additional information: 85-year-old woman on AC presented from [facility] living facility where she resides independently Per EMS. Patient was found by staff wedged between the bathroom the counter. It was reported that she had been attempting to transfer from her wheelchair and fell to the ground. Unwitnessed fall, unknown HT/LOC, however patient is a limited historian for EMS. When I asked if she has any pain anywhere she shakes her head. EMS reported that she was able to self transfer onto the stretcher. Patient is completely nonverbal but will shake/nod her head, eye opening spontaneously, moving all four extremities spontaneously and on command. Further history limited by patient acuity. Review of Systems Unable to obtain: Dementia PD PAST MEDICAL HISTORY - Past Medical History Cardiovascular: Hypertension, High cholesterol, Coronary artery disease, Atrial fibrillation Neuro: CVA : Incontinence HEENT: Chronic hearing loss Psych: None Musculoskeletal: Hemiplegia Derm: None - Past Surgical History Past Surgical History: No Ortho: Other Cardiovascular: Coronary stent - Present Medications Home Medications: Ambulatory Orders Medication Instructions Recorded Confirmed lisinopriL [Lisinopril] 40 mg PO DAILY 06/23/14 09/19/19 Multivitamin [Theragran] 1 tab PO DAILY 02/20/17 09/19/19 Fluoxetine HCl 20 mg PO DAILY 09/02/17 09/19/19 Rivaroxaban [Xarelto] 20 mg PO QDDINNER 11/06/18 09/19/19 Simvastatin 40 mg PO QPM 11/06/18 09/19/19 Acetaminophen 650 mg PO Q6H PRN 11/07/18 09/19/19 Calcium Carbonate/Vitamin D3 1 tab PO DAILY 11/07/18 09/19/19 [Oyster Shell Calcium-Vit D Tab] Senna [Senokot] 8.6 mg PO DAILY 11/07/18 09/19/19 Ibuprofen [Motrin] 600 mg PO TIDWM 1 Days #3 tablet 11/09/18 09/19/19 Lactobacillus Rhamnosus GG 1 cap PO DAILY #4 capsule 11/09/18 09/19/19 [Culturelle] Metoprolol Succinate [Toprol Xl] 25 mg PO BID #60 tablet 11/09/18 09/19/19 Amox/Clav 875/125 [Augmentin] 1 each PO Q12H #20 tablet 11/18/19 Bacitracin Zinc Oint 1 applic TOP BID #1 tube 11/18/19 - Allergies Allergies/Adverse Reactions: Allergies Allergy/AdvReac Type Severity Reaction Status Date / Time No Known Drug Allergies Allergy Verified 10/26/20 08:28 - Social History Does the pt smoke?: No Smoking Status: Never smoker Does the pt drink ETOH?: No Does the pt have substance abuse?: No - Immunizations Immunizations are current?: Yes - POLST Patient has POLST: Yes POLST Status: Full Code PD ED PE NORMAL - Vitals Vital signs reviewed: Yes - General General: No acute distress, Other (Alert, sitting up in bed, nonverbal) - HEENT HEENT: Atraumatic, PERRL, EOMI, Moist mucous membranes, Pharynx benign - Neck Neck: No bony TTP - Cardiac Cardiac: RRR - Respiratory Respiratory: No respiratory distress, Clear bilaterally - Abdomen Abdomen: Non tender, Non distended, Other (Pelvis nontender) - Back Back: No spinal TTP - Derm Derm: Normal color - Extremities Extremities: Other (Right upper extremity contracture and weakness. She is moving LUE on command ) - Neuro Eye Opening: Spontaneous Motor: Obeys Commands Verbal: Inappropriate GCS Score: 13 - Psych Psych: Other (Patient is alert, sitting up in bed, staring and nonverbal. she did speak en route per ems) Results - Vitals Vitals: Vital Signs - 24 hr 10/26/20 10/26/20 10/26/20 08:15 10:57 12:00 Temperature 36.5 C 36.4 C L Heart Rate 108 H 107 H 102 H Respiratory 18 19 21 Rate Blood Pressure 172/100 H 182/102 H 190/100 H O2 Saturation 92 100 100 10/26/20 10/26/20 14:00 15:50 Temperature Heart Rate 100 100 Respiratory 18 18 Rate Blood Pressure 179/99 H 180/100 H O2 Saturation 91 L 91 L Oxygen O2 Source [] Room air O2 Source Room air - EKG (time done) 0816 Rate: Rate (enter#) (112) Rhythm: Atrial fibrillation - Labs Labs: Laboratory Tests 10/26/20 10/26/20 10/26/20 08:29 08:29 08:29 WBC 6.2 RBC 4.27 Hgb 13.7 Hct 43.9 MCV 102.8 H MCH 32.1 H MCHC 31.2 L RDW 15.9 H Plt Count 143 MPV 11.5 H Neut # (Auto) 4.0 Lymph # (Auto) 1.2 L [place] # (Auto) 0.7 Eos # (Auto) 0.3 Baso # (Auto) 0.0 Absolute Nucleated RBC 0.00 Nucleated RBC % 0.0 PT 24.7 H INR 2.3 H APTT 32.7 Sodium 140 Potassium 4.0 Chloride 106 Carbon Dioxide 24 Anion Gap 10.0 BUN 16 Creatinine 0.7 Estimated GFR (MDRD) 80 L Glucose 93 Calcium 9.0 Total Bilirubin 1.4 H AST 28 ALT 16 Alkaline Phosphatase 71 Total Protein 7.0 Albumin 3.8 Globulin 3.2 Albumin/Globulin Ratio 1.2 Lipase 25 Urine Color Urine Clarity Urine pH Ur Specific [place] Urine Protein Urine Glucose (UA) Urine Ketones Urine Occult Blood Urine Nitrite Urine Bilirubin Urine Urobilinogen Ur Leukocyte Esterase Urine RBC Urine WBC Ur Squamous Epith Cells Urine Bacteria Ur Microscopic Review Urine Culture Comments Urine Opiates Screen Ur Oxycodone Screen Urine Methadone Screen Ur Propoxyphene Screen Ur Barbiturates Screen Ur Tricyclics Screen Ur Phencyclidine Scrn Ur Amphetamine Screen U Methamphetamines Scrn U Benzodiazepines Scrn Urine Cocaine Screen U Cannabinoids Screen Ethyl Alcohol < 5.0 Blood Type Antibody Screen 10/26/20 10/26/20 09:10 09:54 WBC RBC Hgb Hct MCV MCH MCHC RDW Plt Count MPV Neut # (Auto) Lymph # (Auto) [place] # (Auto) Eos # (Auto) Baso # (Auto) Absolute Nucleated RBC Nucleated RBC % PT INR APTT Sodium Potassium Chloride Carbon Dioxide Anion Gap BUN Creatinine Estimated GFR (MDRD) Glucose Calcium Total Bilirubin AST ALT Alkaline Phosphatase Total Protein Albumin Globulin Albumin/Globulin Ratio Lipase Urine Color YELLOW Urine Clarity CLEAR Urine pH 7.5 Ur Specific [place] 1.010 Urine Protein NEGATIVE Urine Glucose (UA) NEGATIVE Urine Ketones NEGATIVE Urine Occult Blood SMALL H Urine Nitrite NEGATIVE Urine Bilirubin NEGATIVE Urine Urobilinogen 0.2 (NORMAL) Ur Leukocyte Esterase SMALL H Urine RBC 0-5 Urine WBC 6-10 H Ur Squamous Epith Cells RARE Squamous Urine Bacteria Rare Ur Microscopic Review INDICATED Urine Culture Comments INDICATED Urine Opiates Screen NEGATIVE Ur Oxycodone Screen NEGATIVE Urine Methadone Screen NEGATIVE Ur Propoxyphene Screen NEGATIVE Ur Barbiturates Screen NEGATIVE Ur Tricyclics Screen NEGATIVE Ur Phencyclidine Scrn NEGATIVE Ur Amphetamine Screen NEGATIVE U Methamphetamines Scrn NEGATIVE U Benzodiazepines Scrn NEGATIVE Urine Cocaine Screen NEGATIVE U Cannabinoids Screen NEGATIVE Ethyl Alcohol Blood Type O POSITIVE Antibody Screen NEGATIVE PD MEDICAL DECISION MAKING - ED course ED course: Please note that on further chart review patient was seen by Dr. Estrella in 2019 for a fall and his note documents advanced dementia, history of stroke, and pre-existing right upper extremity deficit. In light of this, her presentation today may be chronic. We will proceed with traumatic work-up and evaluate further. T3 and L3 fractures appear to be chronic, since patient is completely nontender on exam. in addition, no cervical tenderness. d/w SUJATHA Blackmon in regards to incidental findings and possible follow up. Lorri states that her functional status is severely debilitated and she has extremely low quality of life, does not speak, needs assistance with all ADLs including shower, bathroom, feeding. Lorri requests comfort oriented care. Will have Casie Manzanares palliative referral. Dr. Carr is her primary doctor and there is a PA that goes to [place]. Lorri will plan to f/u with them in regards to further goals of care. Impression 1. pleural effusions 2. frequent falls 3. poor functional status 4. L3 compression deformity 5. T3 compression deformity 6. adrenal nodule Departure - Departure Disposition: 01 Home, Self Care Condition: Stable Instructions: Falls Risks Prevent Comments: The patient was seen in the emergency department for evaluation after falling off the toilet. She has multiple incidental findings on CT that were discussed with her power of shingle shearing machine operator who is her daughter Kaity. Plan is expecting to have a follow-up appointment with Dr. Carr or one of his PAs in regards to goals of care. She would like comfort oriented care for Ms. Mathur. Please get in touch with Casie Manzanares, our nurse practitioner specializing in pall iative care. Return to the emergency department if you have any other concerns. Discharge Date/Time: 10/26/20 15:50
[2020-10-26 08:45] LABS: BASOPHILS % (AUTO) 0.5 %; EOSINOPHILS # (AUTO) 0.3 10^3/uL (0.0-0.7); EOSINOPHILS % (AUTO) 5.5 %; HCT - HEMATOCRIT 43.9 % (37.0-47.0); HGB - HEMOGLOBIN 13.7 g/dL (12.0-16.0); LYMPHOCYTES # (AUTO) 1.2 10^3/uL (1.5-3.5); LYMPHOCYTES % (AUTO) 19.5 %; MEAN CORPUSCULAR HEMOGLOBIN 32.1 pg (27.0-31.0); MEAN CORPUSCULAR HGB CONC 31.2 g/dL (32.0-36.0); MEAN CORPUSCULAR VOLUME 102.8 fL (81.0-99.0); MEAN PLATELET VOLUME 11.5 fL (7.9-10.8); MONOCYTES # (AUTO) 0.7 10^3/uL (0.0-1.0); MONOCYTES % (AUTO) 10.5 %; NEUTROPHILS % (AUTO) 63.7 %; PLT - PLATELET COUNT 143 10^3/uL (130-450); RED BLOOD COUNT 4.27 10^6/uL (4.20-5.40); RED CELL DISTRIBUTION WIDTH 15.9 % (12.0-15.0); WHITE BLOOD COUNT 6.2 x10^3/uL (4.8-10.8)
[2020-10-26 08:55] LABS: INR 2.3 (0.8-1.2); PT - PROTHROMBIN TIME 24.7 secs (9.9-12.6)
[2020-10-26 08:56] LABS: ALBUMIN 3.8 g/dL (3.2-5.5); ALBUMIN/GLOBULIN RATIO 1.2 (1.0-2.2); ALKALINE PHOSPHATASE 71 IU/L (42-121); ALT ALANINE AMINOTRANSFERASE 16 IU/L (10-60); AST ASPARTATE AMINOTRANSFERASE 28 IU/L (10-42); BILIRUBIN,TOTAL 1.4 mg/dL (0.2-1.0); BUN - BLOOD UREA NITROGEN 16 mg/dL (6-20); CARBON DIOXIDE - CO2 24 mmol/L (21-32); CHLORIDE 106 mmol/L (101-111); CREATININE 0.7 mg/dL (0.4-1.0); ETOH - ETHANOL < 5.0 mg/dL; GFR - MDRD 80 (>89); GLUCOSE 93 mg/dL (70-100); LIPASE 25 U/L (22-51); SODIUM 140 mmol/L (135-145)
[2020-10-26 09:02] LABS: PARTIAL THROMBOPLASTIN TIME 32.7 secs (24.9-33.3)
[2020-10-26] MEDS ORDERED: IOVERSOL 320 100 ML VIAL IVP ONE ×2 (09:20→10:25)
[2020-10-26 10:02] LABS: MUDS CUTOFF CONCENTRATIONS CUTOFF CONC BELOW:
[2020-10-26 10:04] LABS: BILIRUBIN,URINE NEGATIVE (NEGATIVE); GLUCOSE, URINE (UA) NEGATIVE (NEGATIVE); KETONES,URINE (UA) NEGATIVE (NEGATIVE); LEUKOCYTE ESTERASE, URINE SMALL (NEGATIVE); NITRITE,URINE NEGATIVE (NEGATIVE); OCCULT BLOOD,URINE SMALL (NEGATIVE); PH,URINE 7.5 PH (5.0-7.5); PROTEIN,URINE NEGATIVE (NEGATIVE); UROBILINOGEN,URINE 0.2 (NORMAL) E.U./dL (NORMAL)
[2020-10-26 10:45] LABS: CLARITY,URINE CLEAR (CLEAR)
[2020-10-26 10:57] LABS: BACTERIA,URINE Rare /HPF (None Seen); RBC,URINE 0-5 /HPF (0-5); SQUAMOUS EPITHELIAL CELL,UR RARE Squamous (<= Few)
[2020-10-26 11:43] LABS: AMPHETAMINE SCREEN,URINE NEGATIVE (NEGATIVE); BARBITURATE SCREEN,UR NEGATIVE (NEGATIVE); BENZODIAZEPINES SCREEN, URINE NEGATIVE (NEGATIVE); COCAINE SCREEN URINE NEGATIVE (NEGATIVE); METHADONE SCREEN, URINE NEGATIVE (NEGATIVE); METHAMPHETAMINES SCREEN, URINE NEGATIVE (NEGATIVE); OPIATE SCREEN, URINE NEGATIVE (NEGATIVE); OXYCODONE SCREEN, URINE NEGATIVE (NEGATIVE); PROPOXYPHENE SCREEN, URINE NEGATIVE (NEGATIVE); THC CANNABINOID SCREEN, URINE NEGATIVE (NEGATIVE); TRICYCLIC ANTIDEPRESSANT,URINE NEGATIVE (NEGATIVE)
--- NOTE | 2020-10-26 12:06 | CT Report ---
PROCEDURE: HEAD WO INDICATIONS: Head trauma, mod-severe TECHNIQUE: Noncontrast 4.5 mm thick angled axial sections acquired from the foramen magnum to the vertex. For r adiation dose reduction, the following was used: automated exposure control, adjustment of mA and/or kV according to patient size. COMPARISON: 09/11/2019. FINDINGS: Image quality: Excellent. CSF spaces: Basal cisterns are patent. No extra-axial fluid collections. Ventricles are stable in size and shape. Brain: No midline shift. No intracranial masses or acute hemorrhage. Redemonstration of extensive e ncephalomalacia involving the left MCA territory and noted in the left frontal, temporal, parietal, a nd anterior occipital lobes as before. No evidence for sulcal effacement. Age-related senescent voss es remain stable. Atherosclerotic calcifications of the intracranial internal carotid arteries are pr esent. Skull and face: Calvarium and visualized facial bones are intact, without suspicious lesions. Sinuses: Small left maxillary sinus mucous retention cyst. Remaining paranasal sinuses and mastoids are clear. IMPRESSION: 1. Stable CT evaluation of the head without acute intracranial abnormalities or acute calvarial fract ures. 2. Stable appearance of encephalomalacia involving the left MCA territory as described above. Reviewed by: Capo Melchor MD on 10/26/2020 12:04 PM PDT Approved by: Capo Melchor MD on 10/26/2020 12:04 PM PDT Station ID: [id number]
--- NOTE | 2020-10-26 12:13 | CT Report ---
PROCEDURE: CHEST W INDICATIONS: Chest trauma, blunt, high energy CONTRAST: IV CONTRAST: Optiray 320 ml: 100 PO CONTRAST: *NO PO CONTRAST TECHNIQUE: After the administration of intravenous contrast, 5 mm thick sections acquired from the pulmonary api nuria to the posterior costophrenic angles. 7 mm thick coronal MIP reformats were acquired. For radia tion dose reduction, the following was used: automated exposure control, adjustment of mA and/or kV according to patient size. COMPARISON: CT abdomen and pelvis 10/26/2020 FINDINGS: Image quality: Excellent. Lungs and pleura: Mild bilateral pleural effusions are present. Central and peripheral airways are pa tent and normal in caliber. Mediastinum: Heart size is enlarged. No pericardial effusion. No mediastinal or hilar adenopathy by size criteria. The ascending thoracic aorta is mildly aneurysmally dilated measuring 4.4 cm. Esophag us is normal in caliber. No hiatal hernia. Bones and chest wall: No suspicious bony lesions. No vertebral body compression fractures. No axil juan or supraclavicular adenopathy by size criteria. The thyroid is normal in size and there are no incidental findings.. Abdomen: Visualized upper abdominal solid organs appear normal. Upper abdominal bowel loops are nor mal in caliber. IMPRESSION: Mild bilateral effusions. Aneurysmal dilation of the ascending thoracic aorta. Cardimegaly. Reviewed by: Lillie Gong MD on 10/26/2020 12:12 PM PDT Approved by: Lillie Gong MD on 10/26/2020 12:12 PM PDT Station ID: [id number]
--- NOTE | 2020-10-26 12:17 | CT Report ---
PROCEDURE: Abdomen/Pelvis W INDICATIONS: Blunt abdominal trauma CONTRAST: IV CONTRAST: Optiray 320 ml: 100 PO CONTRAST: *NO PO CONTRAST TECHNIQUE: After the administration of IV contrast, 5 mm thick sections acquired from the diaphragms to the symp hysis. 5 mm thick coronal and sagittal reformats were acquired. For radiation dose reduction, the f ollowing was used: automated exposure control, adjustment of mA and/or kV according to patient size. COMPARISON: None. FINDINGS: Image quality: Excellent. ABDOMEN: Lung bases: There is bibasilar atelectasis and trace bilateral pleural effusions. No focal consolidat ion or mass. Cardiac chambers especially the right and left atrium appear enlarged. Solid organs: Liver and spleen are normal in size and enhancement. The gallbladder is not visualized , likely surgically removed. Biliary system is non dilated. Pancreas enhances normally. There is a l eft adrenal nodule measuring 1.6 x 1.2 cm which has a density of 35 Hounsfield units in the is indete rminate. Kidneys demonstrate normal size and enhancement, without hydronephrosis. Peritoneum and bowel: Bowel loops demonstrate normal wall thickness and caliber. No free fluid or a ir. Nodes and vessels: No retroperitoneal or mesenteric adenopathy by size criteria. Aorta and inferior vena cava are normal in size. Miscellaneous: No ventral hernias. PELVIS: Genitourinary: Bladder wall thickness is normal. The uterus is enlarged for age measuring 6.6 x 6.1 x 6.5 cm. Miscellaneous: No inguinal hernias or adenopathy. Bones: No suspicious bony lesions. There is central height loss of L3 which is probably chronic. Ple ase correlate with point tenderness. IMPRESSION: 1. No acute traumatic abnormality of the abdomen or pelvis. 2. Indeterminate left adrenal nodule measuring 1.6 x 1.2 cm. Recommend further evaluation with CT or MR adrenal protocol. 3. Enlarged uterus. Outpatient evaluation with pelvic ultrasound recommended. 4. Central height loss of the L3 vertebral body is probably chronic given the CT appearance, however there is no prior imaging for comparison. Please correlate with point tenderness. MRI could be perfor med if clinically indicated. Reviewed by: Danis López on 10/26/2020 12:16 PM PDT Approved by: Danis López on 10/26/2020 12:16 PM PDT Station ID: [id number]
--- NOTE | 2020-10-26 12:24 | CT Report ---
PROCEDURE: CERVICAL SPINE WO INDICATIONS: Neck trauma, midline tenderness TECHNIQUE: Noncontrast 3 mm thick sections acquired from the skull base to the T4 level. Sagittal and coronal r eformats were then constructed. For radiation dose reduction, the following was used: automated exp osure control, adjustment of mA and/or kV according to patient size. COMPARISON: 11/11/2019. FINDINGS: Image quality: Diagnostic. Bones: Diffuse osteopenia. Multilevel degenerative changes of the mid cervical spine and upper thora cic spine. There is a possible new, age indeterminate, superior endplate compression deformity of the T3 vertebral body. No significant spinal canal stenosis at this level. No perivertebral edema at thi s level. Additionally, there is minimal anterior subluxation of the left side of the C1-C2 articulati on likely related to rotation and patient's head. Visualized superior ribs are intact. Cranial cervi carmen junction is intact. Soft tissues: Prevertebral soft tissues are normal in thickness. No paravertebral hematomas. No ap ical pneumothoraces. IMPRESSION: 1. Age-indeterminate, superior endplate compression deformity of the T3 vertebral body is not seen on comparison study. No significant neuroforaminal or spinal canal stenosis at this level. Alignment is maintained. Consider further evaluation with CT of the thoracic spine. If there is concurrent concer n for ligamentous injury, MRI may be more sensitive. 2. Minimal anterior subluxation of the left side of the C1-C2 articulation likely related to patient positioning with rotation of the patient's head. If there is clinical concern for ligamentous injury, evaluation with MRI can be considered. 3. Multilevel cervical spondylosis. Findings were discussed telephonically with Dr. Núñez of the emergency department at 1220hrs Reviewed by: Capo Melchor MD on 10/26/2020 12:23 PM PDT Approved by: Capo Melchor MD on 10/26/2020 12:23 PM PDT Station ID: [id number]
[2020-10-26 16:11] VITALS: BP 180/100
== END 2020-10-26 15:50 | disposition home or self-care (01) ==
LOC: EDUNIT# → ED 08:13
DX: Z04.3 Encounter for examination and observation following other accident (principal); J90 Pleural effusion, not elsewhere classified; E27.8 Other specified disorders of adrenal gland; M48.54XA Collapsed vertebra, not elsewhere classified, thoracic region, initial encounter for fracture; M48.56XA Collapsed vertebra, not elsewhere classified, lumbar region, initial encounter for fracture; F03.90 Unspecified dementia, unspecified severity, without behavioral disturbance, psychotic disturbance, mood disturbance, and anxiety; Z91.81 History of falling; Z74.09 Other reduced mobility
CPT/HCPCS: 36415; 70450; 71260; 72125; 74177; 80053; 80306; 81001; 83690; 85025; 85610; 85730; 86850; 86900; 86901; 87077; 87086; 87181; 93005; 99281; 99284; G0480; Q9967; 80320; 81003

== ENCOUNTER 2020-10-26 15:33 | Outpatient (CLI) | payer MEDICARE, OTHER | END 2020-10-26 15:34 | disposition home or self-care (01) | LOC: EMS 15:33 | PROVIDERS: ATTEND Emergency Medicine | DX: F03.90 Unspecified dementia, unspecified severity, without behavioral disturbance, psychotic disturbance, mood disturbance, and anxiety (principal); R41.0 Disorientation, unspecified; J90 Pleural effusion, not elsewhere classified; E27.8 Other specified disorders of adrenal gland; M48.54XA Collapsed vertebra, not elsewhere classified, thoracic region, initial encounter for fracture; M48.56XA Collapsed vertebra, not elsewhere classified, lumbar region, initial encounter for fracture; W19.XXXA Unspecified fall, initial encounter; Y92.199 Unspecified place in other specified residential institution as the place of occurrence of the external cause | CPT/HCPCS: A0425; A0428 ==

== ENCOUNTER 2020-11-11 23:49 | Outpatient (CLI) | payer MEDICARE, OTHER | END 2020-11-11 23:50 | disposition critical access hospital (66) | LOC: EMS 23:49 | DX: R53.1 Weakness (principal); R53.83 Other fatigue | CPT/HCPCS: A0425; A0429 ==

== ENCOUNTER 2020-11-12 00:14 | Inpatient (IN) | payer MEDICARE, OTHER ==
[2020-11-12] MEDS ORDERED: SODIUM CHLORIDE 0.9% 1,000 ML IV STA (00:30)
--- NOTE | 2020-11-12 00:32 | ED Physician Documentation ---
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 In the field, the patient was mildly tachycardic with O2 sat 79 to 80% on room air, improving to the mid 90s with nasal cannula oxygen. I called Denisse, the patient's medical technicians at [facility] who states that this is the first day she seen her in a week and that the patient was in quarantine with upper respiratory symptoms of nasal congestion cough. She had a negative Covid test around a week ago. Denisse called EMS because the patient was crying and calling out, whining, and screaming louder and louder this evening. She also reports that she appears visibly short of air and appears to be in pain, unable to transfer easily to the restroom. Patient afebrile at [place]. Review of Systems Unable to obtain: Dementia PD PAST MEDICAL HISTORY - Past Medical History Cardiovascular: Hypertension, High cholesterol, Coronary artery disease, Atrial fibrillation Neuro: CVA : Incontinence HEENT: Chronic hearing loss Psych: None Musculoskeletal: Hemiplegia Derm: None - Past Surgical History Past Surgical History: No Ortho: Other Cardiovascular: Coronary stent - Present Medications Home Medications: Ambulatory Orders Medication Instructions Recorded Confirmed lisinopriL [Lisinopril] 40 mg PO DAILY 06/23/14 11/12/20 Multivitamin [Theragran] 1 tab PO DAILY 02/20/17 11/12/20 Fluoxetine HCl 20 mg PO DAILY 09/02/17 11/12/20 Rivaroxaban [Xarelto] 20 mg PO QDDINNER 11/06/18 11/12/20 Simvastatin 40 mg PO QPM 11/06/18 11/12/20 Acetaminophen 650 mg PO Q6H PRN 11/07/18 11/12/20 Calcium Carbonate/Vitamin D3 1 tab PO DAILY 11/07/18 11/12/20 [Oyster Shell Calcium-Vit D Tab] Senna [Senokot] 8.6 mg PO DAILY 11/07/18 11/12/20 Ibuprofen [Motrin] 600 mg PO TIDWM 1 Days #3 tablet 11/09/18 11/12/20 Lactobacillus Rhamnosus GG 1 cap PO DAILY #4 capsule 11/09/18 11/12/20 [Culturelle] Metoprolol Succinate [Toprol Xl] 25 mg PO BID #60 tablet 11/09/18 11/12/20 Bacitracin Zinc Oint 1 applic TOP BID #1 tube 11/18/19 11/12/20 - Allergies Allergies/Adverse Reactions: Allergies Allergy/AdvReac Type Severity Reaction Status Date / Time No Known Drug Allergies Allergy Verified 11/12/20 00:26 - Social History Does the pt smoke?: No Smoking Status: Never smoker Does the pt drink ETOH?: No Does the pt have substance abuse?: No - Immunizations Immunizations are current?: Yes - POLST Patient has POLST: Yes POLST Status: Full Code PD ED PE NORMAL - Vitals Vital signs reviewed: Yes - General General: No acute distress, Other (elderly appearing, mentating at baseline (nonverbal, smiling and nodding to me)) - HEENT HEENT: Atraumatic, PERRL, EOMI - Neck Neck: Supple, no meningeal sign - Cardiac Cardiac: Other (borderline tachycardic rate, regular rhythm) - Respiratory Respiratory: No respiratory distress, Clear bilaterally, Other (no increased WOB. 93% on 4L o2) - Abdomen Abdomen: Non tender, Non distended - Back Back: No spinal TTP - Derm Derm: Normal color, Warm and dry - Extremities Extremities: Other (RUE chronic weakness with contracture. otherwise no deformity. ) - Neuro Neuro: Other (mentating at baseline) Eye Opening: Spontaneous Motor: Localizes to Pain Verbal: Incomprehensible GCS Score: 11 - Psych Psych: Other (severe dementia at baseline) Results - Vitals Vitals: Vital Signs - 24 hr 11/12/20 11/12/20 11/12/20 00:21 00:23 02:23 Temperature 36.5 C Heart Rate 104 H 108 H 101 H Respiratory 18 18 30 H Rate Blood Pressure 171/94 H 171/94 H 168/99 H O2 Saturation 95 95 93 Oxygen O2 Source [] Room air O2 Source Simple Mask Oxygen Flow Rate 4 - EKG (time done) 0040 Rate: Rate (enter#) (102) Rhythm: Atrial fibrillation - Labs Labs: Laboratory Tests 11/12/20 11/12/20 11/12/20 00:34 00:50 00:55 WBC 10.3 RBC 4.23 Hgb 13.4 Hct 42.8 MCV 101.2 H MCH 31.7 H MCHC 31.3 L RDW 14.8 Plt Count 190 MPV 10.9 H Neut # (Auto) 8.4 H Lymph # (Auto) 0.9 L Bollinger # (Auto) 0.8 Eos # (Auto) 0.1 Baso # (Auto) 0.0 Absolute Nucleated RBC 0.00 Nucleated RBC % 0.0 VBG pH VBG pCO2 VBG pO2 VBG HCO3 VBG Total CO2 VBG O2 Saturation VBG Base Excess Sodium Potassium Chloride Carbon Dioxide Anion Gap BUN Creatinine Estimated GFR (MDRD) Glucose Calcium Total Bilirubin AST ALT Alkaline Phosphatase Troponin I High Sens 16.4 H* B-Natriuretic Peptide Total Protein Albumin Globulin Albumin/Globulin Ratio Lipase Nasal Adenovirus (PCR) NOT DETECTED Nasal B. parapertussis DNA (PCR) NOT DETECTED Nasal Coronavir 229E PCR NOT DETECTED Nasal Coronavir HKU1 PCR NOT DETECTED Nasal Coronavir NL63 PCR NOT DETECTED Nasal Coronavir OC43 PCR NOT DETECTED Nasal Enterovir/Rhinovir PCR NOT DETECTED Nasal Influenza B PCR NOT DETECTED Nasal Influenza A PCR NOT DETECTED Nasal Parainfluen 1 PCR NOT DETECTED Nasal Parainfluen 2 PCR NOT DETECTED Nasal Parainfluen 3 PCR NOT DETECTED Nasal Parainfluen 4 PCR NOT DETECTED Nasal RSV (PCR) DETECTED A Nasal B.pertussis DNA PCR NOT DETECTED Nasal C.pneumoniae (PCR) NOT DETECTED Eric Human Metapneumo PCR NOT DETECTED Nasal M.pneumoniae (PCR) NOT DETECTED Nasal SARS-CoV-2 (PCR) NOT DETECTED 11/12/20 11/12/20 11/12/20 00:55 00:55 00:55 WBC RBC Hgb Hct MCV MCH MCHC RDW Plt Count MPV Neut # (Auto) Lymph # (Auto) Bollinger # (Auto) Eos # (Auto) Baso # (Auto) Absolute Nucleated RBC Nucleated RBC % VBG pH 7.429 H VBG pCO2 39.1 L VBG pO2 52.4 H VBG HCO3 25.3 VBG Total CO2 26.5 VBG O2 Saturation 88.1 H VBG Base Excess 1.1 Sodium 138 Potassium 4.4 Chloride 102 Carbon Dioxide 25 Anion Gap 11.0 BUN 15 Creatinine 0.7 Estimated GFR (MDRD) 80 L Glucose 132 H Calcium 9.1 Total Bilirubin 1.5 H AST 26 ALT 20 Alkaline Phosphatase 87 Troponin I High Sens B-Natriuretic Peptide 1223 H Total Protein 7.4 Albumin 3.6 Globulin 3.8 Albumin/Globulin Ratio 0.9 L Lipase 24 Nasal Adenovirus (PCR) Nasal B. parapertussis DNA (PCR) Nasal Coronavir 229E PCR Nasal Coronavir HKU1 PCR Nasal Coronavir NL63 PCR Nasal Coronavir OC43 PCR Nasal Enterovir/Rhinovir PCR Nasal Influenza B PCR Nasal Influenza A PCR Nasal Parainfluen 1 PCR Nasal Parainfluen 2 PCR Nasal Parainfluen 3 PCR Nasal Parainfluen 4 PCR Nasal RSV (PCR) Nasal B.pertussis DNA PCR Nasal C.pneumoniae (PCR) Eric Human Metapneumo PCR Nasal M.pneumoniae (PCR) Nasal SARS-CoV-2 (PCR) PD MEDICAL DECISION MAKING - ED course ED course: 85-year-old woman was brought in by EMS for generalized weakness for the past week. I called her aide who says that she called 911 because she was crying and calling out and screaming in bed, and she also is concerned about patient being in pain, short of breath, and not urinating. Will evaluate for PE vs viral etiology of low oxygen saturation. Patient positive for rhinovirus on respiratory panel. also with elevated BNP, pneumonia, and effusion on CT. Pausing IVF for now. She has gotten about 600 mL in the 2 hours thus far she has been here. d/w Dr. Richard for admission - will add on troponin per request. Trop mildly elevated. d/w daughter SUJATHA Blackmon - patient is DNR/DNI. She would like her admitted for IV antibiotics. Departure - Departure Disposition: 66 [facility] DC/Xfer Clinical Impression: Rhinovirus infection, Hypoxia, Pleural effusion, Pneumonia
[2020-11-12] MEDS ORDERED: IOVERSOL 320 100 ML VIAL IVP ONE ×2 (00:37→02:17)
[2020-11-12 01:03] LABS: BASOPHILS % (AUTO) 0.2 %; EOSINOPHILS # (AUTO) 0.1 10^3/uL (0.0-0.7); EOSINOPHILS % (AUTO) 1.2 %; HCT - HEMATOCRIT 42.8 % (37.0-47.0); HGB - HEMOGLOBIN 13.4 g/dL (12.0-16.0); LYMPHOCYTES # (AUTO) 0.9 10^3/uL (1.5-3.5); LYMPHOCYTES % (AUTO) 8.9 %; MEAN CORPUSCULAR HEMOGLOBIN 31.7 pg (27.0-31.0); MEAN CORPUSCULAR HGB CONC 31.3 g/dL (32.0-36.0); MEAN CORPUSCULAR VOLUME 101.2 fL (81.0-99.0); MEAN PLATELET VOLUME 10.9 fL (7.9-10.8); MONOCYTES # (AUTO) 0.8 10^3/uL (0.0-1.0); MONOCYTES % (AUTO) 7.7 %; NEUTROPHILS # (AUTO) 8.4 10^3/uL (1.5-6.6); NEUTROPHILS % (AUTO) 81.6 %; PLT - PLATELET COUNT 190 10^3/uL (130-450); RED BLOOD COUNT 4.23 10^6/uL (4.20-5.40); RED CELL DISTRIBUTION WIDTH 14.8 % (12.0-15.0); WHITE BLOOD COUNT 10.3 x10^3/uL (4.8-10.8)
[2020-11-12 01:08] LABS: VBG BASE EXCESS 1.1 mmol/L (-2 - +2); VBG HCO3 25.3 mmol/L (23-28); VBG OXYGEN SATURATION 88.1 % (60-80); VBG PCO2 39.1 mmHg (41-51); VBG PH 7.429 (7.31-7.41); VBG PO2 52.4 mmHg (25-47); VBG TOTAL CO2 26.5 mmol/L (24-29)
[2020-11-12 01:17] LABS: ALBUMIN 3.6 g/dL (3.2-5.5); ALBUMIN/GLOBULIN RATIO 0.9 (1.0-2.2); BILIRUBIN,TOTAL 1.5 mg/dL (0.2-1.0); CALCIUM 9.1 mg/dL (8.5-10.3); CREATININE 0.7 mg/dL (0.4-1.0); POTASSIUM 4.4 mmol/L (3.5-5.0); TOTAL PROTEIN 7.4 g/dL (6.7-8.2)
[2020-11-12 01:40] LABS: CORONAVIRUS 229E-RESP PCR NOT DETECTED; CORONAVIRUS HKU1-RESP PCR NOT DETECTED; CORONAVIRUS NL63-RESP PCR NOT DETECTED; CORONAVIRUS OC43-RESP PCR NOT DETECTED; HUMAN METAPNEUMOVIRUS NOT DETECTED; INFLUENZA A- RESP PCR PANEL NOT DETECTED; RHINOVIRUS/ENTEROVIRUS NOT DETECTED; SARS-CoV-2 -RESP PCR PANEL NOT DETECTED
[2020-11-12 01:41] LABS: B. PARAPERTUSSIS- RESP PCR PAN NOT DETECTED; B. PERTUSSIS- RESP PCR PANEL NOT DETECTED; C. PNEUMONIAE- RESP PCR PANEL NOT DETECTED; INFLUENZA B - RESP PCR PANEL NOT DETECTED; M. PNEUMONIAE- RESP PCR PANEL NOT DETECTED; PARAINFLUENZA VIRUS 1 NOT DETECTED; PARAINFLUENZA VIRUS 2 NOT DETECTED; PARAINFLUENZA VIRUS 3 NOT DETECTED; PARAINFLUENZA VIRUS 4 NOT DETECTED
[2020-11-12 01:42] LABS: RSV- RESP PCR PANEL DETECTED
[2020-11-12] MEDS ORDERED: FUROSEMIDE 40 MG/4 ML VIAL IVP STA (02:54)
[2020-11-12] MEDS ORDERED: VANCOMYCIN INJ 1.75 GM in SODIUM CHLORIDE 0.9% 500 ML IV STA (02:57)
[2020-11-12] MEDS ORDERED: CEFEPIME 2 GM in SODIUM CHLORIDE 0.9% MINIBAG 100 ML IV STA (02:58)
[2020-11-12] MEDS ORDERED: SODIUM CHLORIDE FLUSH 0.9% 10 ML SYRINGE IVP PRN (03:03)
[2020-11-12] MEDS ORDERED: ONDANSETRON 4 MG/2 ML VIAL IVP PRN (03:03)
[2020-11-12] MEDS ORDERED: ONDANSETRON ODT 4 MG TABLET TL PRN (03:03)
[2020-11-12] MEDS ORDERED: VANCOMYCIN 1 GM VIAL ONE (03:07)
--- NOTE | 2020-11-12 03:09 | HISTORY & PHYSICAL EXAMINATION ---
Chief Complaint - Chief Complaint Chief Complaint: Cough History of Present Illness - Admitted From Admitted From:: [place] - History Obtained From Records Reviewed: Yes History obtained from: ER Physician, EMR Exam Limitations: Patient has dementia and is a poor historian. - History of Present Illness HPI Comment/Other: This is a 85-year-old female with a past medical history significant for dementia, stroke with residual right-sided weakness, coronary artery disease, chronic atrial fibrillation, hypertension who presented early this morning due to an ongoing cough and weakness for the past week. History is obtained from the emergency department physician and the EMR as the patient has dementia and is minimally verbal. The patient reportedly had a fall about 2 weeks ago and has had progressive weakness and a new cough for the past week. It was also reported that she has had decreased oral intake over the past few days as well. EMS was called late yesterday evening as the patient was crying and screaming. She also appeared to be short of breath. She has had symptoms of an upper respiratory tract infection and she had been in quarantine for about the past week. She had a negative Covid test 1 week ago. It is unclear if she is vaccinated or not. Upon EMS arrival, she was noted to be hypoxic with saturations in the low 80s on room air. Here in the emergency department, the patient did say no when asked if she had pain or difficulty breathing. She was unable to answer any other questions and per the emergency department physician, she saw the patient a couple of weeks ago and this was at her baseline due to her dementia. In the emergency department, she required 5 l of oxygen to maintain a saturation in the mid 90s. Her labs were significant for a BNP of 1200. Respiratory PCR panel was positive for RSV. A CT of the chest revealed bilateral pleural effusions and a right lower lobe infiltrate. She was given 40 mg of Lasix IV as well as vancomycin and cefepime IV. In the emergency department patient did speak with her POA who states that she is a DNR/DNI and she is agreeable for admission for antibiotics. Given the above findings, medicine was consulted for admission. History - Past Medical History Cardiovascular: reports: Hypertension, High cholesterol, Coronary artery disease, Atrial fibrillation Neuro: reports: CVA (With residual right sided deficits.) : reports: Incontinence HEENT: reports: Chronic hearing loss Psych: reports: None Musculoskeletal: reports: Hemiplegia Derm: reports: None MRSA Hx?: No - Past Surgical History Cardiovascular: reports: Coronary stent - Family & Social History Family History Comment/Other: The patient is unable to provide this history but based off of the review of prior records, her mother reportedly had a stroke as well. Living arrangement: Assisted living Social History Notes: The patient resides at [facility]. Per review of prior records, she is a non-smoker and did not drink alcohol. - Substance History Use: Uses substance without health or social issues: NONE Meds/Allgy - Home Medications Home Medications: Ambulatory Orders Medication Instructions Recorded Confirmed lisinopriL [Lisinopril] 40 mg PO DAILY 06/23/14 11/12/20 Multivitamin [Theragran] 1 tab PO DAILY 02/20/17 11/12/20 Fluoxetine HCl 20 mg PO DAILY 09/02/17 11/12/20 Rivaroxaban [Xarelto] 20 mg PO QDDINNER 11/06/18 11/12/20 Simvastatin 40 mg PO QPM 11/06/18 11/12/20 Acetaminophen 650 mg PO Q6H PRN 11/07/18 11/12/20 Calcium Carbonate/Vitamin D3 1 tab PO DAILY 11/07/18 11/12/20 [Oyster Shell Calcium-Vit D Tab] Senna [Senokot] 8.6 mg PO DAILY 11/07/18 11/12/20 Ibuprofen [Motrin] 600 mg PO TIDWM 1 Days #3 tablet 11/09/18 11/12/20 Lactobacillus Rhamnosus GG 1 cap PO DAILY #4 capsule 11/09/18 11/12/20 [Culturelle] Metoprolol Succinate [Toprol Xl] 25 mg PO BID #60 tablet 11/09/18 11/12/20 Bacitracin Zinc Oint 1 applic TOP BID #1 tube 11/18/19 11/12/20 - Allergies Allergies/Adverse Reactions: Allergies Allergy/AdvReac Type Severity Reaction Status Date / Time No Known Drug Allergies Allergy Verified 11/12/20 00:26 Review of Systems - All Other Systems All Other Systems: reports: Other (Unable to obtain due to dementia.) Prior Level of Functionality: She requires assistance with her ADLs due to her prior stroke. She resides at [facility]. Exam - Vital Signs Reviewed Vital Signs: Yes Vital Signs: Vital Signs x48h Temp Pulse Resp BP Pulse Ox 11/12/20 02:23 101 H 30 H 168/99 H 93 11/12/20 00:23 108 H 18 171/94 H 95 11/12/20 00:21 36.5 C 104 H 18 171/94 H 95 - Physical Exam General Appearance: positive: Alert, Mild distress Eyes Bilateral: positive: PERRL, Conjunctivae nml ENT: positive: ENT inspection nml, Other (Nasal cannula and simple face mask i nplace.) Neck: positive: Nml inspection Respiratory: positive: No respiratory distress, Rhonchi, Other (She is not in distress but she is tachypneic. She has bilateral crackles and rhonchi.) Cardiovascular: positive: No murmur, Irregularly irregular, Tachycardia. negative: Systolic murmur Abdomen: positive: Non-tender, No distention. negative: Tenderness Skin: positive: Warm, Dry Extremities: positive: No pedal edema Neurologic/Psychiatric: positive: Disoriented to place, Disoriented to time, Other (It is difficult to obtain a neurologic exam as she does not follow commands well. She does have a right hand contracture. She does move all four extremities.). negative: Disoriented to person Conclusion/Plan - Problem List (1) Acute respiratory failure with hypoxia Conclusion/Plan: This appears to be secondary to community-acquired pneumonia as well as the RSV infection. CT of the chest was concerning for right lower lobe infiltrate and small bilateral pleural effusions. Her BNP is elevated at 1200 which is highest has been but she does not appear to be in heart failure. We will continue her on ceftriaxone azithromycin for community-acquired pneumonia. We will continue submental oxygen and supportive care for the viral infection. We will order an echocardiogram and consider further diuresis based off of her clinical conditi on. Her POA has informed me department physician that she is a DNR. Her overall prognosis is guarded at this time. (2) Community acquired pneumonia Conclusion/Plan: CT is concerning for right lower lobe infiltrate. This could actually be a viral pneumonia due to RSV infection but it is difficult to rule out a bacterial component and therefore we will treat her empirically with IV ceftriaxone and azithromycin. Continue supplemental oxygen as mentioned above. Qualifiers: Laterality: right Lung location: lower lobe of lung Qualified Code(s): J18.9 - Pneumonia, unspecified organism (3) RSV (respiratory syncytial virus pneumonia) Conclusion/Plan: She has had them as per respiratory tract flexion for the past week and PCR panel today confirms a RSV infection. It appears that she may have a superimposed bacterial infection. We will keep her on ceftriaxone azithromycin IV empirically. We will place her on precautions. (4) Dementia Conclusion/Plan: She has dementia which is but likely vascular dementia due to her prior stroke. She appears to be at baseline at this time. (5) History of stroke with residual deficit Conclusion/Plan: She has residual right sided weakness from her prior stroke. She is on Xarelto, aspirin, statin. We will continue her home medications. (6) Chronic a-fib Conclusion/Plan: Her heart rate has been slightly elevated in the low 100s at this time. We will resume her home metoprolol and Xarelto. (7) HTN (hypertension) Conclusion/Plan: She is hypertensive with systolic in the 150s. We will continue the lisinopril and metoprolol. - Lab Results Lab results reviewed: Yes Fish Bones: 11/12/20 06:00 11/12/20 05:55 - Diagnostic Imaging Results Diagnostic Imaging Results: positive: Prelim report reviewed - EKG Results EKG Interpreted Independently: Yes EKG Comparison: Unchanged from prior EKG EKG Findings: Her EKG revealed atrial fibrillation with a heart rate of 102. No obvious ischemic changes. Core Measures - Anticipated LOS I expect patient to be DC'd or transferred within 96 hours.: Yes - Issues Hospital Issues and Management Plan: 85-year-old female with dementia and prior history of stroke presents with weakness and cough found to have RSV infection and right lower lobe infiltrate concerning for community-acquired pneumonia. We will admit her for IV antibiotics. - DVT/VTE - Prophylaxis VTE/DVT Device ordered at admit?: Yes VTE/DVT Prophylaxis med ordered at admit?: No
[2020-11-12 06:07] LABS: BASOPHILS % (AUTO) 0.3 %; EOSINOPHILS # (AUTO) 0.1 10^3/uL (0.0-0.7); EOSINOPHILS % (AUTO) 1.4 %; HCT - HEMATOCRIT 46.7 % (37.0-47.0); HGB - HEMOGLOBIN 14.6 g/dL (12.0-16.0); LYMPHOCYTES % (AUTO) 10.1 %; MEAN CORPUSCULAR HEMOGLOBIN 32.2 pg (27.0-31.0); MEAN CORPUSCULAR HGB CONC 31.3 g/dL (32.0-36.0); MEAN CORPUSCULAR VOLUME 103.1 fL (81.0-99.0); MONOCYTES # (AUTO) 0.7 10^3/uL (0.0-1.0); MONOCYTES % (AUTO) 7.2 %; NEUTROPHILS % (AUTO) 80.7 %; PLT - PLATELET COUNT 180 10^3/uL (130-450); RED BLOOD COUNT 4.53 10^6/uL (4.20-5.40); WHITE BLOOD COUNT 9.9 x10^3/uL (4.8-10.8)
[2020-11-12 06:16] LABS: CALCIUM 8.7 mg/dL (8.5-10.3); CREATININE 0.7 mg/dL (0.4-1.0); POTASSIUM 4.4 mmol/L (3.5-5.0)
[2020-11-12] MEDS: SENNA 8.6 MG TABLET PO SCH (08:33)
[2020-11-12] MEDS: lisinopriL 20 MG TABLET PO SCH (08:33)
[2020-11-12] MEDS: FLUoxetine 10 MG CAPSULE PO SCH (08:33)
[2020-11-12] MEDS: SODIUM CHLORIDE FLUSH 0.9% 10 ML SYRINGE IVP SCH ×3 (08:34→23:46)
[2020-11-12] MEDS: METOPROLOL SUCCINATE 25 MG TABLET PO SCH ×2 (08:34→21:43)
[2020-11-12] MEDS: cefTRIAXone 1 GM in SODIUM CHLORIDE 0.9% MINIBAG 100 ML IV SCH (08:34)
[2020-11-12] MEDS: AZITHROMYCIN INJ 500 MG in SODIUM CHLORIDE 0.9% 250 ML IV SCH (09:19)
--- NOTE | 2020-11-12 09:39 | CT Report ---
PROCEDURE: ANGIO CHEST W INDICATIONS: SOA, cough CONTRAST: IV CONTRAST: Optiray 320 ml: 80 PO CONTRAST: *NO PO CONTRAST TECHNIQUE: After the administration of intravenous contrast, images were acquired from the pulmonary apices to t he posterior costophrenic angles. 3-dimensional maximum intensity projection (MIP) coronal and sagit [place] reformats were then acquired through the thorax. For radiation dose reduction, the following was used: automated exposure control, adjustment of mA and/or kV according to patient size. COMPARISON: CT chest 10/26/2020 FINDINGS: Image quality: Fair. Pulmonary arteries: Pulmonary arteries are normal in size, and demonstrate no intraluminal filling d efects to suggest central pulmonary embolism. Lungs and pleura: Opacification of the right mainstem bronchus and its distal branches, (), new. There is small to moderate sized consolidation in the right lower lobe, new or increased. Small righ t pleural effusion. Trace left pleural effusion. Effusions are similar to the prior CT. Mild dependen t opacity in the left lung base suspect atelectasis. Mediastinum: Heart size is enlarged, without pericardial effusion. No mediastinal or hilar adenopat hy. Thoracic aorta measures approximately 4.2 cm. Esophagus is normal in caliber, without hiatal he rnia. Bones and chest wall: No suspicious bony lesions. L1 compression fracture which is new compared to . Minimal height loss. Ribs and thoracic spine appear intact throughout. No axillary or supra clavicular adenopathy. The thyroid is normal in size and there are no incidental findings. Abdomen: There is reflux of contrast into the hepatic veins. Small left adrenal adenoma measuring 1. 6 cm, (). Visualized upper abdominal solid organs appear normal in the early arterial phase of e nhancement. IMPRESSION: 1. No central pulmonary embolism. 2. New opacification of the right mainstem bronchus with secretion/mucous plug or aspiration. Right l ower lobe consolidation most consistent with aspiration pneumonia or pneumonia. 3. Small right and trace left pleural effusion similar the prior exam. Suspect left lung base atelect asis. 4. Thoracic aorta measures approximately 4.2 cm. Cardiomegaly. Reflux of contrast into the hepatic ve ins which could be seen in diastolic dysfunction. 5. Minimal height loss L1 compression fracture which is new compared to 10/26/2020. Minor discrepancy with the overnight preliminary interpretation. New L1 compression fracture. Reviewed by: Jewel Herrera MD on 11/12/2020 9:37 AM PDT Approved by: Jewel Herrera MD on 11/12/2020 9:37 AM PDT Results were communicated to FRANSISCO Rendon at 11/12/2020 9:31 AM PDT. Station ID: [id number]
[2020-11-12] MEDS: RIVAROXABAN 10 MG TABLET PO SCH (16:26)
[2020-11-12] MEDS: ATORVASTATIN 10 MG TABLET PO SCH (21:43)
[2020-11-12] MEDS: ACETAMINOPHEN 325 MG TABLET PO PRN (21:43)
[2020-11-13] MEDS: ACETAMINOPHEN 325 MG TABLET PO PRN ×2 (06:25→17:30)
[2020-11-13 06:32] LABS: BASOPHILS % (AUTO) 0.3 %; EOSINOPHILS # (AUTO) 0.4 10^3/uL (0.0-0.7); EOSINOPHILS % (AUTO) 4.6 %; HCT - HEMATOCRIT 42.3 % (37.0-47.0); LYMPHOCYTES # (AUTO) 1.1 10^3/uL (1.5-3.5); MEAN CORPUSCULAR HEMOGLOBIN 31.3 pg (27.0-31.0); MEAN CORPUSCULAR HGB CONC 30.7 g/dL (32.0-36.0); MEAN CORPUSCULAR VOLUME 101.9 fL (81.0-99.0); MONOCYTES # (AUTO) 0.7 10^3/uL (0.0-1.0); MONOCYTES % (AUTO) 8.4 %; NEUTROPHILS # (AUTO) 6.4 10^3/uL (1.5-6.6); NEUTROPHILS % (AUTO) 73.2 %; PLT - PLATELET COUNT 192 10^3/uL (130-450); RED BLOOD COUNT 4.15 10^6/uL (4.20-5.40); RED CELL DISTRIBUTION WIDTH 14.9 % (12.0-15.0); WHITE BLOOD COUNT 8.7 x10^3/uL (4.8-10.8)
[2020-11-13 06:41] LABS: CALCIUM 8.5 mg/dL (8.5-10.3); CREATININE 0.6 mg/dL (0.4-1.0); POTASSIUM 3.6 mmol/L (3.5-5.0)
[2020-11-13] MEDS ORDERED: METOPROLOL 5 MG/5 ML VIAL IVP STA (08:09)
--- NOTE | 2020-11-13 08:15 | PROVIDER PROGRESS NOTE ---
Subjective - Prog Note Date Prog Note Date: 11/13/20 Prog Note Time: 08:16 - Subjective Subjective: By description of her visit in the emergency room she had respiratory failure and tachypnea. When she was started on antibiotics, transferred to [facility] her respiratory distress has resolved. She has been breathing without tachypnea or increased respiratory effort. She has been very quiet. Eating very little of her meals at 10 to 15%. She does need to be fed. She is not spontaneously interactive. Completely silent and nonverbal as she stares at people as they walk in the room. She is still on oxygen. No fever no white cell count. Current Medications - Current Medications Current Medications: Active Medications Acetaminophen (Acetaminophen 325 Mg Tablet) 650 mg PO Q4HR PRN PRN Reason: Pain 1 to 4 Last Admin: 11/13/20 06:25 Dose: 650 mg Documented by: Atorvastatin Calcium (Atorvastatin 10 Mg Tablet) 20 mg PO QPM [facility] Last Admin: 11/12/20 21:43 Dose: 20 mg Documented by: Fluoxetine HCl (Fluoxetine 10 Mg Capsule) 20 mg PO DAILY [facility] Last Admin: 11/12/20 08:33 Dose: 20 mg Documented by: Azithromycin 500 mg/ Sodium (Chloride) 250 mls @ 250 mls/hr IV DAILY [facility] Stop: 11/14/20 09:59 Last Infusion: 11/12/20 10:20 Dose: Infused Documented by: Ceftriaxone Sodium 1 gm/ (Sodium Chloride) 100 mls @ 200 mls/hr IV DAILY [facility] Stop: 11/16/20 09:29 Last Infusion: 11/12/20 09:05 Dose: Infused Documented by: Lisinopril (Lisinopril 20 Mg Tablet) 40 mg PO DAILY [facility] Last Admin: 11/12/20 08:33 Dose: 40 mg Documented by: Metoprolol Succinate (Metoprolol Succinate 25 Mg Tablet) 25 mg PO BID [facility] Last Admin: 11/12/20 21:43 Dose: 25 mg Documented by: Multivitamins/Minerals (Multivitamin W/Minerals Tablet) 1 tab PO DAILYWM [facility] Ondansetron HCl (Ondansetron Odt 4 Mg Tablet) 4 mg TL Q6HR PRN PRN Reason: Nausea / Vomiting Ondansetron HCl (Ondansetron 4 Mg/2 Ml Vial) 4 mg IVP Q6HR PRN PRN Reason: Nausea / Vomiting Polyethylene Glycol (Polyethylene Glycol 3350 17 Gm Packet) 17 gm PO DAILY [facility] Rivaroxaban (Rivaroxaban 10 Mg Tablet) 20 mg PO QDDINNER [facility] Last Admin: 11/12/20 16:26 Dose: 20 mg Documented by: Senna (Senna 8.6 Mg Tablet) 8.6 mg PO DAILY [facility] Last Admin: 11/12/20 08:33 Dose: 8.6 mg Documented by: Sodium Chloride (Sodium Chloride Flush 0.9% 10 Ml Syringe) 10 ml IVP PRN PRN PRN Reason: NEEDED PER PROVIDER ORDERS Sodium Chloride (Sodium Chloride Flush 0.9% 10 Ml Syringe) 10 ml IVP 0100 ,0900,1700 [facility] Last Admin: 11/12/20 23:46 Dose: 10 ml Documented by: lisinopriL [Lisinopril] 40 mg PO DAILY 06/23/14 Multivitamin [Theragran] 1 tab PO DAILY 02/20/17 Fluoxetine HCl 20 mg PO DAILY 09/02/17 Rivaroxaban [Xarelto] 20 mg PO QDDINNER 11/06/18 Simvastatin 40 mg PO QPM 11/06/18 Acetaminophen 650 mg PO Q6H PRN 11/07/18 Calcium Carbonate/Vitamin D3 [Oyster Shell Calcium-Vit D Tab] 1 tab PO DAILY 11/07/18 Senna [Senokot] 8.6 mg PO DAILY 11/07/18 Objective - Vital Signs/Intake & Output Reviewed Vital Signs: Yes Vital Signs: Vital Signs x48h Temp Pulse Resp BP BP BP Pulse Ox 11/13/20 08:05 113 H 20 130/91 H 95 11/13/20 06:21 36.5 C 113 H 16 163/93 H 93 11/13/20 00:12 36.5 C 87 22 144/97 H 94 Intake & Output: Intake & Output 11/10/20 11/11/20 11/12/20 11/13/20 23:59 23:59 23:59 23:59 Intake Total 2090 Output Total 2550 100 Balance -460 -100 - Objective General Appearance: positive: No acute distress, Alert, Other (Nonverbal. But cooperative with exam.) Eyes Bilateral: positive: PERRL, EOMI ENT: positive: No signs of dehydration Neck: positive: No JVD. negative: Stiff neck Respiratory: positive: No respiratory distress, Rales (Occasionally at the bases. Not always consistent with each breath. Breath sounds are diminished at the bases.), Other (Quiet, comfortable, unlabored respirations). negative: Wheezes, Rhonchi Cardiovascular: positive: Irregularly irregular, Systolic murmur. negative: Gallop/S4, Friction rub Abdomen: positive: Non-tender, No organomegaly, Nml bowel sounds, No distention Skin: positive: Warm, Dry, Pallor Extremities: positive: Non-tender, No pedal edema - Lab Results Fish Bones: 11/13/20 06:11 11/13/20 06:11 Other Labs: Lab Results x24hrs 11/13/20 11/13/20 Range/Units 06:11 06:11 WBC 8.7 (4.8-10.8) x10^3/uL RBC 4.15 L (4.20-5.40) 10^6/uL Hgb 13.0 (12.0-16.0) g/dL Hct 42.3 (37.0-47.0) % MCV 101.9 H (81.0-99.0) fL MCH 31.3 H (27.0-31.0) pg MCHC 30.7 L (32.0-36.0) g/dL RDW 14.9 (12.0-15.0) % Plt Count 192 (130-450) 10^3/uL MPV 11.0 H (7.9-10.8) fL Neut # (Auto) 6.4 (1.5-6.6) 10^3/uL Lymph # (Auto) 1.1 L (1.5-3.5) 10^3/uL Gilchrist # (Auto) 0.7 (0.0-1.0) 10^3/uL Eos # (Auto) 0.4 (0.0-0.7) 10^3/uL Baso # (Auto) 0.0 (0.0-0.1) 10^3/uL Absolute Nucleated RBC 0.00 x10^3/uL Nucleated RBC % 0.0 /100WBC Sodium 139 (135-145) mmol/L Potassium 3.6 (3.5-5.0) mmol/L Chloride 103 (101-111) mmol/L Carbon Dioxide 26 (21-32) mmol/L Anion Gap 10.0 (6-13) BUN 14 (6-20) mg/dL Creatinine 0.6 (0.4-1.0) mg/dL Estimated GFR (MDRD) 95 (>89) Glucose 112 H (70-100) mg/dL Calcium 8.5 (8.5-10.3) mg/dL Magnesium 2.0 (1.7-2.8) mg/dL ABX Reporting Has patient been on IV antibiotics over the past 48 hours?: Yes Assessment/Plan - Problem List (1) Community acquired pneumonia Impression: Respiratory failure with hypoxia has resolved. We think it is due to community- acquired pneumonia from respiratory syncytial virus based on the CT findings. CT of the chest was concerning for right lower lobe infiltrate and small bilateral pleural effusions. The other differential was hypoxia for congestive heart failure because her BNP was elevated at 1200 which is highest has been but she does not appear to be in heart failure. We have started her on ceftriaxone and azithromycin empirically. She is on oxygen and O2 sats on 3 L is 93%. When she came into the emergency room she was for to 5 L so she has improved a bit. White cell count is normal. No fever. We did order an echocardiogram looking for congestive heart failure and her ejection fraction is normal. However she has mitral valve dysfunction. Severe biatrial enlargement. She may have mild fluid overload from a combination of the atrial fibrillation and the valvular heart disease but not diastolic or systolic dysfunction. Plan: We will continue her on ceftriaxone azithromycin for community-acquired pneumonia. We will continue submental oxygen and supportive care for the viral infection. . Her POA has informed the ER department physician that she is a DNR. Her overall prognosis is guarded at this time. Plan on dc with oxygen if she remains hemodynamically stable. (2) RSV (respiratory syncytial virus pneumonia) Conclusion/Plan: She has had them as per respiratory tract flexion for the past week and PCR panel on admission confirms a RSV infection. It appears that she may have a superimposed bacterial infection. We will keep her on ceftriaxone azithromycin IV empirically. We will place her on precautions. 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 She appears to be at baseline at this time. She is quiet, cooperative but nonverbal. Will watch me as I walk in room but no interaction on her part. Plan: Advanced Care Planning conversation held with DPOA/Daughter Lorri. Please see under separate dictation. (4) History of stroke with residual deficit Conclusion/Plan: She has residual right sided weakness from her prior stroke. She is on Xarelto, aspirin, statin. We will continue her home medications. (5) Chronic a-fib Conclusion/Plan: Her heart rate was slightly elevated in the low 100s on admission and she remains there. We have resumed her home metoprolol and Xarelto. Plan: one dose of 5 mg lopressor IV to see if will respond (7) HTN (hypertension) Conclusion/Plan: She is hypertensive with systolic in the 150s. We will continue the lisinopril and metoprolol.
[2020-11-13] MEDS: polyethylene glycoL 3350 17 GM PACKET PO SCH (08:32)
[2020-11-13] MEDS: lisinopriL 20 MG TABLET PO SCH (08:33)
[2020-11-13] MEDS: METOPROLOL SUCCINATE 25 MG TABLET PO SCH ×2 (08:33→20:44)
[2020-11-13] MEDS: SENNA 8.6 MG TABLET PO SCH (08:34)
[2020-11-13] MEDS: MULTIVITAMIN W/MINERALS TABLET PO SCH (08:34)
[2020-11-13] MEDS: FLUoxetine 10 MG CAPSULE PO SCH (08:35)
[2020-11-13] MEDS: SODIUM CHLORIDE FLUSH 0.9% 10 ML SYRINGE IVP SCH ×2 (08:41→17:30)
[2020-11-13] MEDS: cefTRIAXone 1 GM in SODIUM CHLORIDE 0.9% MINIBAG 100 ML IV SCH (08:48)
[2020-11-13] MEDS: AZITHROMYCIN INJ 500 MG in SODIUM CHLORIDE 0.9% 250 ML IV SCH (09:25)
--- NOTE | 2020-11-13 12:03 | ADVANCE CARE PLANNING NOTE ---
Advance Care Planning - Planning Encounter Date: 11/13/20 Time: 11:51 Purpose: establish care goals Parties in Attendance: Miguelangel Blackmon on the phone who is DPOA, patient in room but she is nonverbal Decisional Capacity of the Patient: not present. She has dense dementia and daughter is DPOA. She lives in [place] [phone] - Diagnosis for Encounter (1) Dementia Qualifiers: Dementia type: associated with other underlying disease Dementia behavioral disturbance: without behavioral disturbance Qualified Code(s): F02.80 - Dementia in other diseases classified elsewhere without behavioral disturbance Summary: She had a stroke 15 years ago and has been having cognitive decline ever since. She managed to rehab herself to be independent except for wearing a boot on the affected hemiplegic side. And she was living with her boyfriend/lettuce trimmer. She was able to walk up and down stairs, feed herself, dress herself. The only thing she needed help with was to do her ponytail and putting on her shoes. She then fell and 2017 and broke her hip. When she finished rehab at the alf facility, it was clear that she was not good to be able to return to her baseline. Her boyfriend stated that he could no longer have her in his home and family placed her in [facility] assisted living facility. - Encounter Subjective/Patient's Story: She was previously . . And has 1 daughter and a son. Daughter lives in [facility] and son also lives in [place] but has his own health issues. She became involved with her significant other approximately 25 years ago. And was living with him up until she could no longer be independent. That was in the fall 2016. She has been living at [facility] since that time. Her significant other still goes over to see her 3-4 times a week. Daughter comes by to see her twice a year. Mom has had a cognitive decline since the stroke, and obvious physical decline but that decline really started happening in the last few months. Daughter last saw mom about 2 weeks ago. Prior to that she was seen in May 2020. Even in May 2020 she had already gone downhill. With slower, not moving around as much. But 2 weeks ago she was shocked to find that her mom was no longer even having the strength to sit up. She was sleeping all the time. No longer verbal. Would just "stare" at people. She did completely blank face. They tried to celebrate with her and take her out to dinner where she went to go eat at [employer]. But she had forgotten how to use a fork and knife and a spoon and was eating the muscle chatter with her fingers. She suspects that Brice is still taking her mom to the dining room table to eat but if the patient is unable to feed herself she is not eating. She thinks that may be happening because mom has lost a tremendous amount of weight. She reiterates that she is the power of restaurant mgr. 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 Her helps her a lot with making decisions for mom. Mom is a DO NOT RESUSCITATE. We did discuss further deterioration. And I asked what future plans were for when mom exceeds the ability for her to remain in an assisted living facility. Objective/Medical Story: Coronary artery disease with stent placement in 2005. She has had subsequent chronic atrial fibrillation and was on anticoagulation. She has a history of hypertension, hyperlipidemia, 2 pregnancies with urinary incontinence. A cerebrovascular accident to the left middle cerebral artery and left posterior circulation occurred in 2007. She was seen in our emergency room, received TPA, and was flown to [facility]. She was left with residual right upper extremity paralysis and right lower extremity weakness and tongue deviation. 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 She was living with her significant other when she fell in January 2017 and had a hip fracture. Since that time she has been living in an assisted living facility because she was no longer able to return to home/independent living with her significant other. In 2016 she was 74 kg. August 2017 she was 65 kg. August 2019 back up to 68 kg. October 2019 70 kg. And with this admission she is 58.5 kg. Although there is discrepancy. In vegetable grader weight yesterday was 49.89 kg. And 3 hours later she was 58.5 kg. Overall, however, there is a documented weight loss. There is been no skin breakdown. She is basically bedbound due to deconditioning. Goals of Care: Daughter states that she would like to keep mom near her friends and her jew [place]. She is thought about taking her near her in [place] but mom would not have any of her friends and loved ones near her. Her current plan is to keep mom as comfortable as possible. Maintain DO NOT RESUSCITATE status. Plan: 1. Daughter will discuss with her brother the pragmatic solution to her mom will remain if she exceeds the assisted living facilities ability to take care of mom. Suggestions include: +Being transferred to [facility] +Continue to stay at [facility] with increasing care providers/private duty hire's +Continue to state Brice, acknowledged the increasing cost of private duty caregivers, and transition to hospice when appropriate 2. When she has had these discussions with her brother, she plans on flying up in the next month to have a discussion with Brice Code Status: Do Not Attempt Resuscitation Time spent on advance care plannin minutes on phone
--- NOTE | 2020-11-13 12:43 | Discharge Plan ---
Discharge Plan for SNF / [facility] - Discharge Plan And Transition Orders Problem Reviewed?: Yes Disposition: 01 Home, Self Care Condition: Fair Allergies and Adverse Reactions: Allergies Allergy/AdvReac Type Severity Reaction Status Date / Time No Known Drug Allergies Allergy Verified 11/12/20 00:26 Health Concerns: She is a densely demented elderly female who has been living in an assisted living facility since approximately the fall of 2016. Daughter last saw her in May 2020 and already noticed a marked decline in mom's weight, and mentation. Last seen 2 weeks ago where mom was now blank, staring. Had gotten profoundly skinny. 1 daughter to go to dinner mom seem to have lost the ability to feed herself and was using her fingers to eat soup. In August 2016 she was 74 kg. She is now approximately 50 kg in our facility today. She was brought in because of weakness and cough. She had fallen 2 weeks ago and ever since then she has been increasingly weak, and the cough was noted 1 week ago. On examination she has pneumonia, right lung, with positive respiratory syncytial virus pattern. She has been treated for viral pneumonia, and empiric treatment of possible secondary bacterial pneumonia. She has been afebrile during her stay. No elevated white cell count. But still needs oxygen. Plan of Treatment: Complete antibiotic therapy that is empiric. She will have 1 more dose of azithromycin, and 4 more days of amoxicillin 500 mg p.o. 3 times daily. Care Goals: To remain at [facility] until she exceeds their licensing capacity to take care of her. Family is in the process of deciding what the next step will be for their mother. With this she was sent [facility] with private duty hire on top of [facility] care. Whether she will stay at [facility] with private duty hire and hospice. Or whether she will be transferred to a chcf facility such as [facility]. Assessment: Patient is densely demented. The care plan was discussed with daughter and she will follow through. - SNF / [facility] Transition Orders Admit to (Facility): [facility] assisted living [facility] Under the care of (Name): Ru Carr Discharge Diagnosis: 1. Acute respiratory failure with hypoxia, now stable with chronic hypoxia due to pneumonia 2. Community-acquired pneumonia, 3. Respiratory syncytial virus infection 4. 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 History of left middle cerebral artery stroke with right body weakness deficit, verbal apraxia 6. Chronic atrial fibrillation 7. Hypertension 8. Abnormal loss of weight with failure to thrive Medicare Certification Statement: I certify that [facility] care is medically necessary on a continuing basis for any of the conditions for which she/he is receiving care during hospitalization. Notify PCP of admission and forward orders to primary provider for signature. Weight on admission and: Weekly Other Notification Orders: Call PCP immediately if patient develops dyspnea, chest pain/tightness or edema. House Bowel Program: Yes Additional Bowel Program Orders: If no BM after 2 days, nurse may give M.O.M. 30ml PO PRN and/or ducolax Supp 1 [place] and/or UNA 250mg P.O., and/or senna 1-2 tabs PO. On day 3 nurse may give repeat above order until residents constipation is resolved. Annual Influenza Vaccine (between Dec 23 and July 22): Yes Oxygen Orders: 2 L by nasal cannula to maintain O2 sats above 92%. This is 24 hours a day. Check O2 sats once a week to see when patient can come off oxygen Medication Orders: PLEASE REFER TO THE DISCHARGE MEDICATION LIST. Insulin Orders?: No - Medications New Prescriptions: levoFLOXacin [Levaquin] 750 mg PO DAILY #12 tablet - Diet Type: Geriatric Texture: [facility] soft Liquids: Thin May have monthly special meal: Yes
[2020-11-13] MEDS: RIVAROXABAN 10 MG TABLET PO SCH (17:30)
[2020-11-13] MEDS: ATORVASTATIN 10 MG TABLET PO SCH (20:44)
[2020-11-14] MEDS: SODIUM CHLORIDE FLUSH 0.9% 10 ML SYRINGE IVP SCH ×3 (00:30→16:18)
[2020-11-14 08:18] LABS: BASOPHILS % (AUTO) 0.4 %; EOSINOPHILS # (AUTO) 0.5 10^3/uL (0.0-0.7); EOSINOPHILS % (AUTO) 5.6 %; HCT - HEMATOCRIT 42.1 % (37.0-47.0); HGB - HEMOGLOBIN 12.8 g/dL (12.0-16.0); LYMPHOCYTES # (AUTO) 0.9 10^3/uL (1.5-3.5); MEAN CORPUSCULAR HEMOGLOBIN 31.1 pg (27.0-31.0); MEAN CORPUSCULAR HGB CONC 30.4 g/dL (32.0-36.0); MEAN CORPUSCULAR VOLUME 102.4 fL (81.0-99.0); MEAN PLATELET VOLUME 11.4 fL (7.9-10.8); MONOCYTES # (AUTO) 0.8 10^3/uL (0.0-1.0); MONOCYTES % (AUTO) 9.9 %; NEUTROPHILS # (AUTO) 6.2 10^3/uL (1.5-6.6); NEUTROPHILS % (AUTO) 72.7 %; PLT - PLATELET COUNT 203 10^3/uL (130-450); RED BLOOD COUNT 4.11 10^6/uL (4.20-5.40); WHITE BLOOD COUNT 8.5 x10^3/uL (4.8-10.8)
[2020-11-14 08:24] LABS: CALCIUM 8.7 mg/dL (8.5-10.3); CREATININE 0.5 mg/dL (0.4-1.0); MAGNESIUM 2.2 mg/dL (1.7-2.8); POTASSIUM 3.7 mmol/L (3.5-5.0)
[2020-11-14] MEDS: cefTRIAXone 1 GM in SODIUM CHLORIDE 0.9% MINIBAG 100 ML IV SCH (08:28)
[2020-11-14] MEDS: METOPROLOL SUCCINATE 25 MG TABLET PO SCH ×2 (08:35→20:59)
[2020-11-14] MEDS: lisinopriL 20 MG TABLET PO SCH (08:35)
[2020-11-14] MEDS: FLUoxetine 10 MG CAPSULE PO SCH (08:39)
[2020-11-14] MEDS: AZITHROMYCIN INJ 500 MG in SODIUM CHLORIDE 0.9% 250 ML IV SCH (09:14)
[2020-11-14] MEDS: MULTIVITAMIN W/MINERALS TABLET PO SCH (09:19)
[2020-11-14] MEDS: SENNA 8.6 MG TABLET PO SCH (09:19)
[2020-11-14] MEDS: polyethylene glycoL 3350 17 GM PACKET PO SCH (09:19)
[2020-11-14] MEDS: RIVAROXABAN 10 MG TABLET PO SCH (16:41)
--- NOTE | 2020-11-14 17:49 | PROVIDER PROGRESS NOTE ---
Progress Note November 14, 2020 5:30 PM She continues to be a cooperative patient and that she is completely silent, nonverbal. Stairs as you walk in the room. She appears comfortable. Nursing does not report any events. She is a total assist with meals and is eating up to 75% of her food. Medications are Tylenol, Lipitor, ceftriaxone, Prozac, Zestril, Toprol, Theragran, MiraLAX, Xarelto. Vital signs: Temperature 36.2. Heart rate varies between 50-220. Blood pressure 130/89. Respirations 24. 90% on room air. Earlier in the day respirations were 18 and she was 96% on room air. She is not showing any signs of respiratory distress with this. This is a lady who consistently is sitting up in bed. But she is completely noninteractive. She will look at you when you walk in the room but she is nonverbal. Face is normal symmetry. Pupils are reactive. Neck is supple without JVD Diminished breath sounds at the bases without crackles rhonchi or wheezing Irregular rate and rhythm with a murmur that is fast this afternoon but has been controlled most of the day Abdomen is soft, nontender. Extremities are without edema Neurologically she is a silent, demented elderly female. She will move her hands purposefully to wipe her face, or move the sheet but she will not feed herself. She has a Loredo catheter and is not able to get up out of bed. Generalized weakness. BMP is normal. CBC has macrocytosis, white cell count 8.5, hemoglobin 12.8 Blood cultures from November 12 are negative Assessment/plan: Community-acquired pneumonia. She presented mainly as hypoxia and agitation at the correction facility. Since being here she has been very quiet, and her hypoxia has improved. She can sometimes be on room air with a 96% sat. All within suddenly drop her sats again and need 1 L.. She has been on ceftriaxone and azithromycin. Blood cultures have been negative. Since white blood count is normal, hypoxia resolved, I will then switch her to p.o. antibiotics. We will switch her to single agent Levaquin today. I would hope to discharge her to her assisted living facility today. But they have diminished staff, no one will be present on the weekends so we will discharge her November 16. 2. Respiratory syncytial virus pneumonia. In view of the fact that her white cell count is normal, no fever, I do want to stop IV antibiotics. Respiratory syncytial virus care is mainly supportive. 3. Dementia. Stable during the stay. No behavioral disorder. 4. History of stroke with residual deficit. Between her cognitive deficit and residual deficit, advance care planning conversation held with daughter yesterday. Plan is for her to return to her assisted living facility. Renegotiate care for her since she is a complete feeder. She is completely dependent on someone to feed her. She is lost quite a bit of weight. Slowly transition to hospice if necessary. 5. Chronic A. fib. Rate slightly increased this afternoon. Will give 1 dose of Lopressor. 6. Hypertension. Stable and controlled.
[2020-11-14] MEDS: ATORVASTATIN 10 MG TABLET PO SCH (20:59)
[2020-11-15] MEDS: ACETAMINOPHEN 325 MG TABLET PO PRN ×2 (00:05→09:24)
[2020-11-15] MEDS: SODIUM CHLORIDE FLUSH 0.9% 10 ML SYRINGE IVP SCH ×3 (01:30→16:59)
[2020-11-15 06:39] LABS: BASOPHILS % (AUTO) 0.1 %; EOSINOPHILS # (AUTO) 0.2 10^3/uL (0.0-0.7); HCT - HEMATOCRIT 42.1 % (37.0-47.0); HGB - HEMOGLOBIN 13.3 g/dL (12.0-16.0); LYMPHOCYTES # (AUTO) 1.1 10^3/uL (1.5-3.5); LYMPHOCYTES % (AUTO) 13.5 %; MEAN CORPUSCULAR HEMOGLOBIN 32.4 pg (27.0-31.0); MEAN CORPUSCULAR HGB CONC 31.6 g/dL (32.0-36.0); MEAN CORPUSCULAR VOLUME 102.4 fL (81.0-99.0); MEAN PLATELET VOLUME 11.2 fL (7.9-10.8); MONOCYTES # (AUTO) 0.8 10^3/uL (0.0-1.0); NEUTROPHILS # (AUTO) 5.9 10^3/uL (1.5-6.6); NEUTROPHILS % (AUTO) 73.2 %; PLT - PLATELET COUNT 231 10^3/uL (130-450); RED BLOOD COUNT 4.11 10^6/uL (4.20-5.40); RED CELL DISTRIBUTION WIDTH 14.7 % (12.0-15.0)
[2020-11-15 06:49] LABS: CREATININE 0.5 mg/dL (0.4-1.0); MAGNESIUM 2.2 mg/dL (1.7-2.8); POTASSIUM 3.7 mmol/L (3.5-5.0)
[2020-11-15] MEDS: polyethylene glycoL 3350 17 GM PACKET PO SCH (09:23)
[2020-11-15] MEDS: SENNA 8.6 MG TABLET PO SCH (09:24)
[2020-11-15] MEDS: FLUoxetine 10 MG CAPSULE PO SCH (09:25)
[2020-11-15] MEDS: levoFLOXacin 250 MG TABLET PO SCH (09:26)
[2020-11-15] MEDS: METOPROLOL SUCCINATE 25 MG TABLET PO SCH ×3 (09:26→20:32)
[2020-11-15] MEDS: lisinopriL 20 MG TABLET PO SCH (09:26)
[2020-11-15] MEDS: RIVAROXABAN 10 MG TABLET PO SCH (16:58)
--- NOTE | 2020-11-15 18:48 | PROVIDER PROGRESS NOTE ---
Progress Note November 15, 2020 6:19 PM She was seen this morning and this afternoon. Continues to be very quiet, densely demented lexus patient. Comfortable. No respiratory distress. I was hoping to send her back to her assisted living facility but there is a complication of her needing oxygen. There is limited staffing at the [facility] on the weekends. But this morning she has no hypoxemia on room air. She has been 95 to 99% all day. But the assisted living facility is still not accepting people over the weekend. Medications: Tylenol, Lipitor, Prozac, Levaquin p.o., Zestril, metoprolol XL, Theragran, MiraLAX as needed, Xarelto, senna as needed. Temperature is 36.1. Heart rate is 122. Varies between 105-122. Blood pressure 159/94. Respirations 20. 95% on room air. Alert lady who is sitting up in bed. Noncommunicative. Cooperative. Neck is supple. Lungs are clear to auscultation and percussion. There is no crackles rhonchi wheezing. She is not in any respiratory distress. Abdomen is soft, nontender. She has a Loredo catheter. No edema. Neurologically dementia with nonverbal status. She does have purposeful movement for herself. She will reposition herself in the bed. She will sometimes reach for food but nurse aide does need to feed her. Assessment/plan: 1.. Respiratory syncytial virus pneumonia. Was being empirically treated for possible community-acquired pneumonia as well with antibiotics. I will switch her to single agent Levaquin. Mainly just to complete the empiric therapy. She is no longer hypoxic. Plan is to discharge to her assisted living facility tomorrow. 2. Dementia. Stable. No behavioral problems. 3. History of stroke with residual deficit, dense dementia. Advance care planning conversation with daughter held. 4. Chronic atrial fibrillation. Atrial fibrillation rate is not controlled. On her usual beta-queenie. We will increase the beta-queenie dose. 5. Hypertension is also not well controlled. She is already on her AURORA inhibitor. Will increase beta-queenie.
[2020-11-15] MEDS: ATORVASTATIN 10 MG TABLET PO SCH (20:32)
[2020-11-16] MEDS: ACETAMINOPHEN 325 MG TABLET PO PRN (01:18)
[2020-11-16] MEDS: SODIUM CHLORIDE FLUSH 0.9% 10 ML SYRINGE IVP SCH ×2 (01:22→09:15)
[2020-11-16 05:24] LABS: BASOPHILS % (AUTO) 0.1 %; EOSINOPHILS # (AUTO) 0.3 10^3/uL (0.0-0.7); HCT - HEMATOCRIT 40.2 % (37.0-47.0); HGB - HEMOGLOBIN 12.4 g/dL (12.0-16.0); LYMPHOCYTES # (AUTO) 1.1 10^3/uL (1.5-3.5); MEAN CORPUSCULAR HEMOGLOBIN 31.1 pg (27.0-31.0); MEAN CORPUSCULAR HGB CONC 30.8 g/dL (32.0-36.0); MEAN CORPUSCULAR VOLUME 100.8 fL (81.0-99.0); MEAN PLATELET VOLUME 10.8 fL (7.9-10.8); MONOCYTES # (AUTO) 0.9 10^3/uL (0.0-1.0); MONOCYTES % (AUTO) 11.8 %; NEUTROPHILS % (AUTO) 68.8 %; PLT - PLATELET COUNT 225 10^3/uL (130-450); RED BLOOD COUNT 3.99 10^6/uL (4.20-5.40); RED CELL DISTRIBUTION WIDTH 14.8 % (12.0-15.0); WHITE BLOOD COUNT 7.2 x10^3/uL (4.8-10.8)
[2020-11-16 05:33] LABS: CREATININE 0.5 mg/dL (0.4-1.0); MAGNESIUM 2.2 mg/dL (1.7-2.8)
[2020-11-16 05:37] LABS: CALCIUM 8.9 mg/dL (8.5-10.3)
[2020-11-16 08:39] VITALS: BP 154/103
[2020-11-16] MEDS: levoFLOXacin 250 MG TABLET PO SCH (09:14)
[2020-11-16] MEDS: polyethylene glycoL 3350 17 GM PACKET PO SCH (09:14)
[2020-11-16] MEDS: METOPROLOL SUCCINATE 25 MG TABLET PO SCH (09:14)
[2020-11-16] MEDS: FLUoxetine 10 MG CAPSULE PO SCH (09:14)
[2020-11-16] MEDS: lisinopriL 20 MG TABLET PO SCH (09:14)
[2020-11-16] MEDS: SENNA 8.6 MG TABLET PO SCH (09:14)
--- NOTE | 2020-11-16 11:18 | Discharge Plan ---
Discharge Plan for SNF / [facility] - Discharge Plan And Transition Orders Problem Reviewed?: Yes Disposition: 01 Home, Self Care Condition: Fair Allergies and Adverse Reactions: Allergies Allergy/AdvReac Type Severity Reaction Status Date / Time No Known Drug Allergies Allergy Verified 11/12/20 00:26 Health Concerns: She is a densely demented elderly female who has been living in an assisted living facility since approximately the fall of 2016. Daughter last saw her in May 2020 and already noticed a marked decline in mom's weight, and mentation. Last seen 2 weeks ago where mom was now blank, staring. Had gotten profoundly skinny. 1 daughter to go to dinner mom seem to have lost the ability to feed herself and was using her fingers to eat soup. In August 2016 she was 74 kg. She is now approximately 50 kg in our facility today. She was brought in because of weakness and cough. She had fallen 2 weeks ago and ever since then she has been increasingly weak, and the cough was noted 1 week ago. On examination she has pneumonia, right lung, with positive respiratory syncytial virus pattern. She has been treated for viral pneumonia, and empiric treatment of possible secondary bacterial pneumonia. She has been afebrile during her stay. No elevated white cell count. But still needs oxygen. Plan of Treatment: Complete antibiotic therapy that is empiric. She will have 1 more dose of azithromycin on the day of transfer to [facility], and 4 more days of levaquin 750 p.o. daily. Care Goals: To remain at [facility] until she exceeds their licensing capacity to take care of her. Family is in the process of deciding what the next step will be for their mother. With this she was sent [facility] with private duty hire on top of [facility] care. Whether she will stay at [facility] with private duty hire and hospice. Or whether she will be transferred to a [place] facility such as [facility]. Assessment: Patient is densely demented. The care plan was discussed with daughter and she will follow through. - SNF / [facility] Transition Orders Admit to (Facility): [facility] Under the care of (Name): Ru Carr Discharge Diagnosis: 1. Respiratory syncytial viral pneumonia 2. Acute respiratory failure with hypoxia 3. Dementia without behavioral disturbance 4. History of stroke with residual deficit of weakness, dysarthria 5. Chronic atrial fibrillation 6. Hypertension Medicare Certification Statement: I certify that [facility] [place] [facility] [place] care is medically necessary on a continuing basis for any of the conditions for which she/he is receiving care during hospitalization. Notify PCP of admission and forward orders to primary provider for signature. Weight on admission and: Monthly Other Notification Orders: Call PCP immediately if patient develops dyspnea, chest pain/tightness or edema. House Bowel Program: Yes Additional Bowel Program Orders: If no BM after 2 days, nurse may give M.O.M. 30ml PO PRN and/or ducolax Supp 1 AR and/or UNA 250mg P.O., and/or senna 1-2 tabs PO. On day 3 nurse may give repeat above order until residents constipation is resolved. Annual Influenza Vaccine (between Dec 23 and July 22): Yes Two-step PPD per [facility] [id number] or approved exception documents: Yes Medication Orders: PLEASE REFER TO THE DISCHARGE MEDICATION LIST. Insulin Orders?: No - Medications New Prescriptions: levoFLOXacin [Levaquin] 750 mg PO DAILY #12 tablet - Diet Type: Geriatric Texture: Regular Liquids: Thin May have monthly special meal: Yes
[2020-11-16] MEDS ORDERED: MULTIVITAMIN W/MINERALS TABLET PO SCH (12:00)
--- NOTE | 2020-11-16 21:05 | DISCHARGE SUMMARY ---
"Discharge Summary Admit Date: 11/12/20 Discharge Date: 11/16/20 Discharging Provider: Naomi Quiros MD Primary Care Provider: Ru Carr MD Code Status: Do Not Attempt Resuscitation Condition at Discharge: Fair Discharge Disposition: 01 Home, Self Care - DIAGNOSES Discharge Diagnoses with Status of Each Condition: 1. Respiratory syncytial viral pneumonia 2. Acute respiratory failure with hypoxia 3. Dementia without behavioral disturbance 4. History of stroke with residual deficit of weakness, dysarthria 5. Chronic atrial fibrillation 6. Hypertension - HPI History of Present Illness: This is a 85-year-old female with a past medical history significant for dementia, stroke with residual right-sided weakness, coronary artery disease, chronic atrial fibrillation, hypertension who presented early this morning due to an ongoing cough and weakness for the past week. History is obtained from the emergency department physician and the EMR as the patient has dementia and is minimally verbal. The patient reportedly had a fall about 2 weeks ago and has had progressive weakness and a new cough for the past week. It was also reported that she has had decreased oral intake over the past few days as well. EMS was called late yesterday evening as the patient was crying and screaming. She also appeared to be short of breath. She has had symptoms of an upper respiratory tract infection and she had been in quarantine for about the past week. She had a negative Covid test 1 week ago. It is unclear if she is vaccinated or not. Upon EMS arrival, she was noted to be hypoxic with saturations in the low 80s on room air. Here in the emergency department, the patient did say no when asked if she had pain or difficulty breathing. She was unable to answer any other questions and per the emergency department physician, she saw the patient a couple of weeks ago and this was at her baseline due to her dementia. In the emergency department, she required 5 l of oxygen to maintain a saturation in the mid 90s. Her labs were significant for a BNP of 1200. Respiratory PCR panel was positive for RSV. A CT of the chest revealed bilateral pleural effusions and a right lower lobe infiltrate. She was given 40 mg of Lasix IV as well as vancomycin and cefepime IV. In the emergency department patient did speak with her POA who states that she is a DNR/DNI and she is agreeable for admission for antibiotics. Given the above findings, medicine was consulted for admission. - Past Medical History Cardiovascular: reports: Hypertension, High cholesterol, Coronary artery disease, Atrial fibrillation Neuro: reports: CVA (With residual right sided deficits.) : reports: Incontinence HEENT: reports: Chronic hearing loss Psych: reports: None Musculoskeletal: reports: Hemiplegia Derm: reports: None MRSA Hx?: No - Past Surgical History Cardiovascular: reports: Coronary stent - CONSULTS | PROCEDURES Procedures: Chest CT with angiogram showing a left adrenal adenoma. Heart size enlarged wi thout a pericardial effusion. No pulmonary embolism. New opacification of the right mainstem bronchus with secretions/mucous plug or aspiration. Right lower lobe consolidation consistent with aspiration pneumonia. Thoracic aneurysm at 4.2 cm. Blood cultures negative at 2 days - HOSPITAL COURSE Hospital Course: The patient was felt to have respiratory syncytial virus pneumonia. Which is mainly supportive care. Empirically we treated her as community-acquired bacterial pneumonia since she is demented, probably having problems with speech and swallowing. We will switch her over to oral antibiotics to complete her therapy. Initial hypoxia gradually resolved and acute respiratory distress with hypoxia resolved so that she was without oxygen by discharge. Dementia was stable. She had no behavioral disorders. This patient is very quiet, will sit up in bed, stare but nonverbal. She is able to occasionally feed herself but needs prompting. She continues to have a slight, very slight residual deficit of weakness in 1 side of her body from an old stroke. Chronic atrial fibrillation is managed with rate control and anticoagulation. I did have an advance care planning conversation with her POA/DPOA, who is her daughter. Daughter lives in [place] and comes about twice a year. We talked about the progression of dementia and how people get weaker. Eventually her mom may exceed the ability of her assisted living facility to take care of her. The options were then to keep her in the assisted living facility with caregivers. Keep her in the assisted living facility with caregivers and transition her to hospice. Or transition her to a nursing home facility. The daughter says she will start thinking about those logistics. She has noticed that mom is deteriorated quite a bit over the last few months. At discharge depression was 36.4. Pulse 74. Blood pressure 154/103. Respirations 18. 95% on room air. She is 5 feet 6 inches tall and weighs 58.5 kg. During her stay she occasion needed increased metoprolol. She was on 25 twice daily and had been increased to 50 twice daily. Neck is supple. No JVD. There is no respiratory distress. Diminished, shallow breaths at the bases. A fast irregularly irregular heart rate. And abdomen that hypoactive bowel sounds, nontender. Neurologically she was completely disoriented, had no speech. Would occasionally feed herself and was eating 50 to 75% of her food. She was completely dependent for her activities of daily living. [place] catheter was removed at discharge. She was already developing contractures due to her previous stroke. Skin care was assiduous and will need to be continued at the assisted living facility to avoid skin breakdown. We are asking that she be followed up by her primary care provider in the next 1 to 2 days. She will complete a few more days of Levaquin. All her other medications were the same. Consider increasing her metoprolol at the assisted living facility from 25-50 if she continues to be tachycardic. Greater than 30 minutes was spent coordinating discharge - ALLERGIES Allergies/Adverse Reactions: Allergies Allergy/AdvReac Type Severity Reaction Status Date / Time No Known Drug Allergies Allergy Verified 11/12/20 00:26 - MEDICATIONS Home Medications: Ambulatory Orders Medication Instructions Recorded Confirmed lisinopriL [Lisinopril] 40 mg PO DAILY 06/23/14 11/12/20 Multivitamin [Theragran] 1 tab PO DAILY 02/20/17 11/12/20 Fluoxetine HCl 20 mg PO DAILY 09/02/17 11/12/20 Rivaroxaban [Xarelto] 20 mg PO QDDINNER 11/06/18 11/12/20 Simvastatin 40 mg PO QPM 11/06/18 11/12/20 Acetaminophen 650 mg PO Q6H PRN 11/07/18 11/12/20 Calcium Carbonate/Vitamin D3 1 tab PO DAILY 11/07/18 11/12/20 [Oyster Shell Calcium-Vit D Tab] Senna [Senokot] 8.6 mg PO DAILY 11/07/18 11/12/20 Ibuprofen [Motrin] 600 mg PO TIDWM 1 Days #3 tablet 11/09/18 11/12/20 Lactobacillus Rhamnosus GG 1 cap PO DAILY #4 capsule 11/09/18 11/12/20 [Culturelle] Metoprolol Succinate [Toprol Xl] 25 mg PO BID #60 tablet 11/09/18 11/12/20 Bacitracin Zinc Oint 1 applic TOP BID #1 tube 11/18/19 11/12/20 Multivitamin W/Minerals [Theragran 1 tab PO DAILYWM tablet 11/13/20 M] levoFLOXacin [Levaquin] 750 mg PO DAILY #12 tablet 11/13/20 - LABS Result Diagrams: 11/16/20 05:10 11/16/20 05:10"
== END 2020-11-16 15:00 | disposition home or self-care (01) | DRG 193 ==
LOC: EDUNIT# → SUPCPDRO 00:14 → ED 00:14 → MS2 03:03
PROVIDERS: ADMIT Internal Medicine; ATTEND Specialist
DX: J12.89 Other viral pneumonia (principal); B97.89 Other viral agents as the cause of diseases classified elsewhere; R09.02 Hypoxemia; J12.1 Respiratory syncytial virus pneumonia; J96.01 Acute respiratory failure with hypoxia; I69.951 Hemiplegia and hemiparesis following unspecified cerebrovascular disease affecting right dominant side; I48.20 Chronic atrial fibrillation, unspecified; E78.00 Pure hypercholesterolemia, unspecified; J90 Pleural effusion, not elsewhere classified; I48.91 Unspecified atrial fibrillation; I08.3 Combined rheumatic disorders of mitral, aortic and tricuspid valves; I69.911 Memory deficit following unspecified cerebrovascular disease; Z20.822 Contact with and (suspected) exposure to COVID-19; F01.50 Vascular dementia, unspecified severity, without behavioral disturbance, psychotic disturbance, mood disturbance, and anxiety; J15.9 Unspecified bacterial pneumonia; I69.922 Dysarthria following unspecified cerebrovascular disease; R53.81 Other malaise; R62.7 Adult failure to thrive; Z68.20 Body mass index [BMI] 20.0-20.9, adult; I10 Essential (primary) hypertension; E78.5 Hyperlipidemia, unspecified; I25.10 Atherosclerotic heart disease of native coronary artery without angina pectoris; R32 Unspecified urinary incontinence; H91.90 Unspecified hearing loss, unspecified ear; Z66 Do not resuscitate; Z74.01 Bed confinement status; Z79.01 Long term (current) use of anticoagulants; Z79.1 Long term (current) use of non-steroidal anti-inflammatories (NSAID); Z79.899 Other long term (current) drug therapy; Z95.5 Presence of coronary angioplasty implant and graft
CPT/HCPCS: 36415; 71275; 80048; 80053; 82803; 83605; 83690; 83735; 83880; 84484; 85025; 87040; 87631; 93005; 93306; 99281; 99285; A9270; J3370; Q9967; 0202U

== ENCOUNTER 2020-11-23 12:26 | Outpatient (CLI) | payer MEDICARE, OTHER | END 2020-11-23 12:27 | disposition critical access hospital (66) | LOC: EMS 12:26 | DX: M25.552 Pain in left hip (principal) | CPT/HCPCS: A0425; A0429 ==

== ENCOUNTER 2020-11-23 12:51 | Emergency (ER) | payer MEDICARE, OTHER ==
[2020-11-23] MEDS ORDERED: SODIUM CHLORIDE 0.9% 1,000 ML IV STA (13:04)
--- NOTE | 2020-11-23 13:07 | ED Physician Documentation ---
History of Present Illness - Stated complaint Stated Complaint: FAILURE TO THRIVE - Chief complaint Chief Complaint: Ext Problem - History obtained from History obtained from: EMS - History of Present Illness Timing: How many days ago (3) Pain level max: 0 Pain level now: 0 - Additonal information Additional information: Patient is an 85-year-old female who presents to the emergency department with "failure to thrive". She has brought in by EMS today. She has dementia and was recently admitted to the hospital for RSV pneumonia. At that point a discussion was had with family regarding transitioning to a detention facility versus hospice. EMS reports that the patient has not been eating and drinking or taking her medication over the past 2 to 3 days at the assisted living facility. They sent her here for "evaluation". They have no specific complaints according to EMS. Review of Systems Unable to obtain: Dementia PD PAST MEDICAL HISTORY - Past Medical History Cardiovascular: Hypertension, High cholesterol, Coronary artery disease, Atrial fibrillation Neuro: CVA (With residual right sided deficits.) : Incontinence HEENT: Chronic hearing loss Psych: None Musculoskeletal: Hemiplegia Derm: None - Past Surgical History Past Surgical History: No Ortho: Other Cardiovascular: Coronary stent - Present Medications Home Medications: Ambulatory Orders Medication Instructions Recorded Confirmed lisinopriL [Lisinopril] 40 mg PO DAILY 06/23/14 11/12/20 Multivitamin [Theragran] 1 tab PO DAILY 02/20/17 11/12/20 Fluoxetine HCl 20 mg PO DAILY 09/02/17 11/12/20 Rivaroxaban [Xarelto] 20 mg PO QDDINNER 11/06/18 11/12/20 Simvastatin 40 mg PO QPM 11/06/18 11/12/20 Acetaminophen 650 mg PO Q6H PRN 11/07/18 11/12/20 Calcium Carbonate/Vitamin D3 1 tab PO DAILY 11/07/18 11/12/20 [Oyster Shell Calcium-Vit D Tab] Senna [Senokot] 8.6 mg PO DAILY 11/07/18 11/12/20 Ibuprofen [Motrin] 600 mg PO TIDWM 1 Days #3 tablet 11/09/18 11/12/20 Lactobacillus Rhamnosus GG 1 cap PO DAILY #4 capsule 11/09/18 11/12/20 [Culturelle] Metoprolol Succinate [Toprol Xl] 25 mg PO BID #60 tablet 11/09/18 11/12/20 Bacitracin Zinc Oint 1 applic TOP BID #1 tube 11/18/19 11/12/20 Multivitamin W/Minerals [Theragran 1 tab PO DAILYWM tablet 11/13/20 M] levoFLOXacin [Levaquin] 750 mg PO DAILY #12 tablet 11/13/20 - Allergies Allergies/Adverse Reactions: Allergies Allergy/AdvReac Type Severity Reaction Status Date / Time No Known Drug Allergies Allergy Verified 11/23/20 13:05 - Social History Does the pt smoke?: No Smoking Status: Unknown if ever smoked Does the pt drink ETOH?: No Does the pt have substance abuse?: No - Immunizations Immunizations are current?: Yes - POLST Patient has POLST: Yes POLST Status: Full Code PD ED PE NORMAL - Vitals Vital signs reviewed: Yes - General General: No acute distress, Well developed/nourished, Other (Alert, pleasant, not oriented to person, time or place) - HEENT HEENT: Other (dry lips) - Neck Neck: Supple, no meningeal sign - Cardiac Cardiac: Other (tachycardic) - Respiratory Respiratory: Other (mild rhonchi B) - Abdomen Abdomen: Soft, Non tender, Non distended - Back Back: No CVA TTP, No spinal TTP - Derm Derm: Warm and dry - Extremities Extremities: No edema - Neuro Neuro: Other (alert) Results - Vitals Vitals: Vital Signs - 24 hr 11/23/20 11/23/20 11/23/20 12:52 13:30 14:30 Temperature 36.3 C L Heart Rate 115 H 111 H 106 H Respiratory 30 H 29 H 22 Rate Blood Pressure 186/101 H 170/111 H 178/100 H O2 Saturation 97 95 95 11/23/20 11/23/20 11/23/20 15:05 15:30 16:28 Temperature Heart Rate 105 H 119 H 111 H Respiratory 23 20 16 Rate Blood Pressure 175/98 H 176/113 H 159/95 H O2 Saturation 97 96 93 11/23/20 11/23/20 16:35 17:30 Temperature Heart Rate 90 86 Respiratory 19 24 Rate Blood Pressure 113/65 142/90 H O2 Saturation 91 L 92 Oxygen O2 Source [With Activity] Room air O2 Source Nasal cannula Oxygen Flow Rate 2 - Labs Labs: Laboratory Tests 08/06/1411/23/20 11/23/20 13:21 13:22 13:52 WBC 6.8 RBC 4.06 L Hgb 12.7 Hct 41.5 MCV 102.2 H MCH 31.3 H MCHC 30.6 L RDW 15.6 H Plt Count 219 MPV 10.4 Neut # (Auto) 4.8 Lymph # (Auto) 0.9 L [place] # (Auto) 0.9 Eos # (Auto) 0.2 Baso # (Auto) 0.0 Absolute Nucleated RBC 0.00 Nucleated RBC % 0.0 Sodium 138 Potassium 4.1 Chloride 104 Carbon Dioxide 24 Anion Gap 10.0 BUN 14 Creatinine 0.7 Estimated GFR (MDRD) 80 L Glucose 88 Calcium 8.7 Total Bilirubin 1.5 H AST 34 ALT 19 Alkaline Phosphatase 111 Total Protein 6.4 L Albumin 3.2 Globulin 3.2 Albumin/Globulin Ratio 1.0 Lipase 28 Urine Color YELLOW Urine Clarity CLEAR Urine pH 7.0 Ur Specific [place] 1.020 Urine Protein 100 H Urine Glucose (UA) NEGATIVE Urine Ketones NEGATIVE Urine Occult Blood NEGATIVE Urine Nitrite NEGATIVE Urine Bilirubin NEGATIVE Urine Urobilinogen 2 H Ur Leukocyte Esterase TRACE H Urine RBC 0-5 Urine WBC 6-10 H Ur Epithelial Cells FEW Transitional Ur Squamous Epith Cells RARE Squamous Urine Crystals 0-2 Calcium Oxalate Urine Bacteria Few Ur Microscopic Review INDICATED Urine Culture Comments INDICATED - Rads (name of study) cxr Radiology: Final report received, EMP read contemporaneously, See rad report (Right basilar consolidation with small to moderate right pleural effusion concerning for aspiration versus pneumonia.) PD MEDICAL DECISION MAKING - ED course Complexity details: reviewed results, re-evaluated patient, considered differential, d/w patient ED course: Patient had a large bowel movement in the emergency department actually appears to feel better. Tolerating p.o. without difficulty here. Given IV fluids. Given a dose of IV Levaquin. She has persistent pneumonia on the x-ray. Attempted to call her daughter several times, no response back, however apparently the daughter did call later and speak to one of the nursing staff. No emergency medical condition that requires hospitalization at this time. Patient will be transported back to [facility]. This document was made in part using voice recognition software. While efforts are made to proofread this document, sound alike and grammatical errors may occur. Departure - Departure Disposition: 01 Home, Self Care Clinical Impression: Dementia Qualifiers: Dementia type: unspecified type Dementia behavioral disturbance: without behavioral disturbance Qualified Code(s): F03.90 - Unspecified dementia without behavioral disturbance Pneumonia Qualifiers: Pneumonia type: due to unspecified organism Laterality: right Lung location: lower lobe of lung Qualified Code(s): J18.9 - Pneumonia, unspecified organism Atrial fibrillation Qualifiers: Atrial fibrillation type: permanent Qualified Code(s): I48.21 - Permanent atrial fibrillation Condition: Good Instructions: ED Pneumonia Adult Follow-Up: Ru Carr MD [Primary Care Provider] - Within 3 Days Comments: Please continue her current medications at home. Return if she worsens. Her pneumonia does not appear significantly changed since discharge from the hospital. She was given IV fluids and a dose of IV levaquin in the hospital today. She can resume the oral levaquin tomorrow. Discharge Date/Time: 11/23/20 18:02
--- NOTE | 2020-11-23 13:24 | XRAY Report ---
PROCEDURE: Chest 1 View X-Ray INDICATIONS: recent peumonia, RSV TECHNIQUE: One view of the chest was acquired. COMPARISON: CTA chest 11/12/2020 FINDINGS: Surgical changes and devices: None. Lungs and pleura: Small to moderate-sized right-sided pleural effusion. Trace left-sided pleural effu jess. Increased opacification noted in the right lung base which could represent atelectasis or pneum onia. Mediastinum: Mediastinal contours appear normal. Heart is enlarged. Bones and chest wall: No suspicious bony lesions. Overlying soft tissues appear unremarkable. IMPRESSION: Right basilar consolidation with small to moderate-sized right pleural effusion concerning for aspira tion versus pneumonia. Reviewed by: Reena Olvera MD, PhD on 11/23/2020 1:22 PM PDT Approved by: Reena Olvera MD, PhD on 11/23/2020 1:22 PM PDT Station ID: [id number]
[2020-11-23 13:57] LABS: BASOPHILS % (AUTO) 0.1 %; EOSINOPHILS # (AUTO) 0.2 10^3/uL (0.0-0.7); EOSINOPHILS % (AUTO) 3.4 %; HCT - HEMATOCRIT 41.5 % (37.0-47.0); HGB - HEMOGLOBIN 12.7 g/dL (12.0-16.0); LYMPHOCYTES # (AUTO) 0.9 10^3/uL (1.5-3.5); LYMPHOCYTES % (AUTO) 13.3 %; MEAN CORPUSCULAR HEMOGLOBIN 31.3 pg (27.0-31.0); MEAN CORPUSCULAR HGB CONC 30.6 g/dL (32.0-36.0); MEAN CORPUSCULAR VOLUME 102.2 fL (81.0-99.0); MEAN PLATELET VOLUME 10.4 fL (7.9-10.8); MONOCYTES # (AUTO) 0.9 10^3/uL (0.0-1.0); MONOCYTES % (AUTO) 12.7 %; NEUTROPHILS # (AUTO) 4.8 10^3/uL (1.5-6.6); NEUTROPHILS % (AUTO) 70.2 %; PLT - PLATELET COUNT 219 10^3/uL (130-450); RED BLOOD COUNT 4.06 10^6/uL (4.20-5.40); RED CELL DISTRIBUTION WIDTH 15.6 % (12.0-15.0); WHITE BLOOD COUNT 6.8 x10^3/uL (4.8-10.8)
[2020-11-23 14:01] LABS: BILIRUBIN,URINE NEGATIVE (NEGATIVE); GLUCOSE, URINE (UA) NEGATIVE (NEGATIVE); KETONES,URINE (UA) NEGATIVE (NEGATIVE); LEUKOCYTE ESTERASE, URINE TRACE (NEGATIVE); NITRITE,URINE NEGATIVE (NEGATIVE); OCCULT BLOOD,URINE NEGATIVE (NEGATIVE); PROTEIN,URINE 100 mg/dL (NEGATIVE); UROBILINOGEN,URINE 2 E.U./dL (NORMAL)
[2020-11-23 14:04] LABS: ALBUMIN 3.2 g/dL (3.2-5.5); BILIRUBIN,TOTAL 1.5 mg/dL (0.2-1.0); CALCIUM 8.7 mg/dL (8.5-10.3); CREATININE 0.7 mg/dL (0.4-1.0); POTASSIUM 4.1 mmol/L (3.5-5.0); TOTAL PROTEIN 6.4 g/dL (6.7-8.2)
[2020-11-23 14:08] LABS: CLARITY,URINE CLEAR (CLEAR)
[2020-11-23 14:27] LABS: RBC,URINE 0-5 /HPF (0-5)
[2020-11-23 14:28] LABS: BACTERIA,URINE Few /HPF (None Seen); CRYSTALS,URINE 0-2 Calcium Oxalate /LPF; EPITHELIAL CELLS,UR FEW Transitional /HPF (<= Few); SQUAMOUS EPITHELIAL CELL,UR RARE Squamous (<= Few)
[2020-11-23] MEDS ORDERED: levoFLOXacin 750 MG/150 ML 750 MG/150 ML BAG IV STA (14:39)
[2020-11-23] MEDS ORDERED: diltiaZEM INJ 5 MG/ML VIAL IVP STA (15:13)
[2020-11-23 17:48] VITALS: BP 142/90
== END 2020-11-23 18:02 | disposition home or self-care (01) ==
LOC: EDUNIT# → ED 12:51
DX: J18.9 Pneumonia, unspecified organism (principal); J90 Pleural effusion, not elsewhere classified; R62.7 Adult failure to thrive; F03.90 Unspecified dementia, unspecified severity, without behavioral disturbance, psychotic disturbance, mood disturbance, and anxiety; I48.21 Permanent atrial fibrillation; Z79.01 Long term (current) use of anticoagulants; I10 Essential (primary) hypertension; I69.351 Hemiplegia and hemiparesis following cerebral infarction affecting right dominant side
CPT/HCPCS: 36415; 80053; 81001; 81003; 83690; 85025; 87086; 96365; 96366; 96375; 99281

== ENCOUNTER 2020-11-23 18:40 | Outpatient (CLI) | payer MEDICARE, OTHER | END 2020-11-23 23:59 | disposition home or self-care (01) | LOC: EMS 18:40 | PROVIDERS: ATTEND Emergency Medicine | DX: F03.90 Unspecified dementia, unspecified severity, without behavioral disturbance, psychotic disturbance, mood disturbance, and anxiety (principal) | CPT/HCPCS: A0425; A0428 ==

== ENCOUNTER 2020-12-10 10:15 | Outpatient (CLI) | payer MEDICARE, OTHER ==
--- NOTE | 2020-12-10 17:35 | CONSULTATION NOTE ---
Palliative Care Consultation - Referral Referring Provider: Maty Merino PA-C Time of Visit: [id number] Referral setting: Assisted living Referral Reason: CVA with residual effects/Dementia/FTT - Information Sources Records reviewed: Previous records reviewed History/Review of Systems obtained from: Family (daughter/DPHARI Garcia via phone), Nursing (FRANSISCO Connor), Other (male advertising solicitor, Sulaiman) Exam limitations: Clinical condition (Advanced Dementia and Non-verbal) - History of Present Illness Brief History of Present Illness: This is an 85-year-old female who was seen and evaluated today for initial palliative care consultation due to failure to thrive, CVA with residual effects, significant weight loss, and advanced care planning a [facility] assisted [facility]. The patient is nonverbal and cannot offer any supplementation regarding history. Patient's daughter/DPOAKaity who resides in [place] has been visiting twice in the last month and a half supplements as well as the facility RN. The patient began developing a significant decline after she presented with respiratory failure to [facility] emergency department and was admitted 11/12/11/16 2020 and then again when she was in the emergency department and was treated again for pneumonia on 11/23/2020 and is status post a course of Levaquin. The patient has not been able to bounce back after either of these incidences. She is no longer verbal I will, ambulatory, eating very minimally. Facility staff report that she has lost 14 pounds. Presently, patient's last recorded weight on 12/01 was 122 pounds and in June 2020 she was 138 pounds which is an approximate 11% weight loss in over a 6-month timeframe. The patient is being offered and encouraged foods however, is declining. The patient has a male advertising solicitor who has been a part of her life for the last 20 years, Sulaiman who visits her daily. Sulaiman presented today at the end of evaluation and also expressed concern regarding the patient's decline. 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 The patient had community here on [facility] and declined relocating to [place] to be closer to her daughter, Alba. The patient is having a difficult time swallowing her pills and these are presently being crushed. Recommendations we made for reduction of pill burden and continuation of medications that add to comfort at the daughter's request. Staff deny any signs or symptoms of aspiration however, the patient would benefit from a hospital bed. RN Sirisha as well as patient's daughter reports that the patient has displayed increased signs and symptoms of pain and discomfort specifically revolving around touch. This is a new development in recent weeks. The discomfort is most pronounced to her lower extremities and she is presently on a prednisone taper for potential sciatica. There appears to be more of a neuropathic pain component and would benefit from initiation of gabapentin. Patient is seen resting in bed staring at the ceiling. No evidence of acute distress however, she would not track. Medical/Surgical History - Past Medical History Cardiovascular: reports: Hypertension, High cholesterol, Coronary artery disease, [place], Atrial fibrillation (on xarelto) Respiratory: reports: Pneumonia (2020) Neuro: CVA (With residual right sided deficits.) Neuro: reports: Dementia, CVA : reports: Incontinence HEENT: reports: Chronic hearing loss Psych: reports: Depression, Anxiety Musculoskeletal: reports: Hemiplegia Derm: reports: None MRSA Hx?: No Other Past Medical History: Melanoma, squamous cell carcinoma - Past Surgical History General: reports: Appendectomy Ortho: reports: Other Cardiovascular: reports: Coronary stent - Substance History Use: Uses substance without health or social issues: NONE (Never a smoker) Social History - Living Situation Living arrangement: Assisted living Support System: Patient is . She had 1 son naturally who in a car accident in 4 years of age. After the loss of her son she and her spouse adopted 2 children, a son and daughter. The patient's daughter, Kaity is her DPOA with contact number [phone]. The patient's son went to live with the patient's upon and the parents divorce and has an extremely close relationship with the patient. They had previously talked on a routine basis despite not seeing each other for a number of years in person. The patient is Catholic and previously had a strong olivia. Family History - Family History Family History: Mother: , Father: Family History Comment/Other: Noncontributory Medications/Allergies - Medications Home Medications: Ambulatory Orders Medication Instructions Recorded Confirmed lisinopriL [Lisinopril] 40 mg PO DAILY 06/23/14 11/12/20 Fluoxetine HCl 20 mg PO DAILY 09/02/17 11/12/20 Rivaroxaban [Xarelto] 20 mg PO QDDINNER 11/06/18 11/12/20 Acetaminophen 650 mg PO Q6H PRN 11/07/18 11/12/20 Senna [Senokot] 8.6 mg PO DAILY 11/07/18 11/12/20 Metoprolol Succinate [Toprol Xl] 25 mg PO BID #60 tablet 11/09/18 11/12/20 Gabapentin [Neurontin] 125 mg PO QPM 12/10/20 12/10/20 predniSONE [Deltasone] 20 mg PO DAILY MDD x5 days then d/c 12/10/20 12/10/20 - Allergies Allergies/Adverse Reactions: Allergies Allergy/AdvReac Type Severity Reaction Status Date / Time No Known Drug Allergies Allergy Verified 11/23/20 13:05 Review of Systems - Constitutional Constitutional: reports: Fatigue, Weakness, Poor appetite, Weight loss (weight 122lb 12/01/20; weight 138lb 07/06/2020). denies: Fever - Eyes Eyes: denies: Irritation - Ears, Nose & Throat Ears, Nose & Throat: reports: Hearing loss, Other (dry gums). denies: Dentures - Cardiovascular Cardiovascular: denies: Edema - Respiratory Respiratory: denies: Cough - Gastrointestinal Gastrointestinal: reports: Poor appetite. denies: Constipation, Diarrhea, Nausea, Vomiting - Genitourinary Genitourinary: reports: Incontinence - Musculoskeletal Musculoskeletal: reports: Stiffness (right hand contrcture), Assistive devices, Transfer issues - Integumentary Integumentary: denies: Rash - Neurological Neurological: reports: General weakness, Memory problems, Other (Sensitivity to light touch) - Psychiatric Psychiatric: reports: Depression, Anxiety - Endocrine Endocrine: denies: Diabetes type 2 - All Other Systems All Other Systems: reports: Reviewed and negative (ROS obtained from daughter/DPOA and nursing staff as patient is nonverbal due to advanced dementia) Physical Exam - Vital Signs Temperature: 36.7 C Pulse Rate: 98 O2 Saturation: 95 (onRA) Blood Pressure: 148/80 (left arm) - Physical Exam General Appearance: positive: No acute distress, Alert, Other (nonverbal, resting in bed, would not track with her eyes or respond when questioned) Eyes Bilateral: positive: Normal inspection, PERRL ENT: positive: Other (lips slightly dry) Neck: positive: Trachea midline Cardiovascular: positive: Irregularly irregular, Systolic murmur, Other (distal extremities slightly cool to the touch) Respiratory: positive: No respiratory distress, Breath sounds nml. negative: Wheezes Abdomen: positive: Non-tender, Soft, Nml bowel sounds Skin: positive: No symptoms, Other (b/l heels intact) Extremities: positive: No pedal edema, Other (Right hand contracture) Neurologic/Psychiatric: positive: Disoriented to person, Disoriented to place, Disoriented to time, Unintelligible speech (Nonverbal), Flat affect, Other (Would not follow commands, did not track movement with eyes; applied lotion to all extremities and noted minor brow frowning with initial touch to BLE) Palliative Care - POLST Patient has POLST: Yes POLST Status: DNR, Comfort Measures Pain: Comment (sensitivity to light touch with reports of pain by daughter and facility staff) Anorexia: Weight loss (11% weight loss in 6 months) Sleep: Sleeps well Constipation: Managed Performance Status: Patient has had a significant functional and cognitive decline over the last month and a half. She is no longer ambulatory. She is nonverbal. She is requiring assistance with meals. Minimal oral intake only of Ensure supplementation. Incontinent of bowel and bladder. FAS T7 C - Palliative Care Discussion: The patient has a history of CVA with residual effects that occur decades ago with progressive dementia likely due to underlying history of CVA and vascular changes. The patient unfortunately had to incidences of respiratory distress and pneumonia with treatment and subsequently had significant functional and cognitive decline to the point that she is no longer ambulatory, engaged or interactive with significant weight loss. She is no longer Taking in much by way of oral intake by mouth. She is also sustained a significant weight loss of approximately 11% over the last 6 months and is down to 122 pounds. Lengthy review with the patient's daughter/DPHARI Blackmon Regarding goals of care in evidence of the patient's continued decline. The patient's daughter with her last visit recognize the patient's overall decline and wishes to focus on comfort measures and quality of life within the facility setting. Lengthy discussion had regarding transition to hospice services and daughter feels that this is in alignment with the patient's goals. Completed POLST as DN AR, comfort focused treatment with no artificial nutrition by tube. The patient's daughter wishes for the patient to have a comfortable and dignified on hospice services. Discussed with the patient's lack of oral intake and weight loss trend prognosis in measured in minimal weeks.Would continue to encourage Ensure supplementation but if the patient is not open to this and would not force and this was reviewed not only with the patient's daughter via phone but male advertising solicitor, Sulaiman as well who verbalized understanding. Impression and Recommendations - Palliative Care Impression: This is an 85-year-old female who has had progressive cognitive and functional decline after treatment for pneumonia and respiratory distress in the setting of dementia, FAS T7 C, CVA with residual effects, and protein calorie malnu trition. Patient's daughter/DPOA wishes to focus on comfort measures within her assisted living environment and would benefit from the support of hospice services.Patient to transition to hospice services with daughter/DPOA's permission. Recommendations/Counseling Done: 1. Protein calorie malnutrition. Patient has had a 16 pound weight loss since June 2020 and approximate 11% loss of weight over 6 months and presently weighs 122 pounds. Minimal oral intake. Continue to offer Ensure supplementation 1 can 3 times daily however, to only offer if patient is amenable with all parties verbalizing understanding including daughter and male advertising solicitor. Given the patient's underlying history of CVA with residual effects and dementia would continue to expect a gradual decline. We will obtain a hospital bed and the facility and transition to a hospital bed that is provided by hospice services once admitted. 2. CVA with residual weakness. Patient with underlying dysphagia. Discontinue the following medications that are not contributing to comfort after discussion with the patient's daughter/DPOA probiotic capsule, multivitamin, oyster calcium D supplements, simvastatin. Chronic. Progressive. Supportive care. Continue lisinopril and metoprolol for antihypertensive effects. 3. [place] Noted to bilateral lower extremities. Has been treated for patricia mbar radiculopathy with prednisone taper and almost complete. Initiate gabapentin 250 mg per 5 mL administer 2.5 mL (125mg) by mouth in the evening for pain. Reviewed purpose, dose and side effects with patient's daughter/DPOA with understanding verbalized. 4.Advance care planning. POLST completed today as DN AR with comfort measures, no artificial nutrition by tube. Patient's daughter/DPOA recognizes the changes that is occurring and provided supportive listening regarding patient transitioning towards end of life with a prognosis seen measured in weeks. Especially, if the patient continues with a limited oral intake. Patient's daughter wishes to focus on comfort measures within the facility environment supported by hospice services. Daughter expresses concerns regarding her broth ers ability to cope and expresses bereavement risk and made hospice team aware. Patient's daughter/DPOA requests that patient's male advertising solicitor, Sulaiman not be made aware regarding transition to hospice services at the present time and Kaity will have this discussion with Sulaiman herself. Empathetic and supportive listening provided as well as is review of hospice services. Total time spent 80 minutes with greater than 50% of this spent in counseling and coordination of care with patient's/daughter DPOA via phone in patient's prescence, male advertising solicitor and nursing staff; examination of patient; review of palliative and hospice philosophy; review of escalation vs de-escalation of care and discontinuation of medications not supporting of comfort; discontinuation of routine vital signs; review of pain and symptom management and anticipatory guidance. Patient's PCP made aware via phone call that patient's daughter/DPOA elects transition to hospice services. Disclaimer: The chart note was formulated using voice recognition technology and unfortunately sound alike errors may occur.
== END 2020-12-10 10:16 | disposition home or self-care (01) ==
LOC: PC 10:15
PROVIDERS: ATTEND Nurse Practitioner Family
DX: Z51.5 Encounter for palliative care (principal); R62.7 Adult failure to thrive; R63.4 Abnormal weight loss; I69.351 Hemiplegia and hemiparesis following cerebral infarction affecting right dominant side; F03.90 Unspecified dementia, unspecified severity, without behavioral disturbance, psychotic disturbance, mood disturbance, and anxiety; E46 Unspecified protein-calorie malnutrition; R20.3 Hyperesthesia; R13.10 Dysphagia, unspecified; I10 Essential (primary) hypertension; I48.91 Unspecified atrial fibrillation; Z79.899 Other long term (current) drug therapy; Z79.01 Long term (current) use of anticoagulants; Z87.01 Personal history of pneumonia (recurrent); Z87.09 Personal history of other diseases of the respiratory system; Z85.820 Personal history of malignant melanoma of skin; Z66 Do not resuscitate